=== PATIENT | male | born 1970 | race Caucasian/White ===

== ENCOUNTER 2018-06-23 10:32 | Observation (INO) ==
--- NOTE | 2018-06-23 10:49 | Emergency Department Note ---
ED Disposition Clinical Impression: Precordial chest pain, Syncope and collapse Disposition: Admitted as Observation Condition on Discharge: Good - Critical Care Critical Care Time: No Attestation: On , the high probability of a clinically significant, sudden or life threatening deterioration of the following system(s) required my full and direct attention, intervention and personal management. The time I documented below is in addition to time spent performing reported procedures but includes the following listed in this critical care notation. Medical Decision Making - Sourav Inquiry Pt receiving controlled substance: No Vital Signs: 06/23/18 10:49 06/23/18 11:03 06/23/18 11:30 Temperature 97.7 F Temperature Source Oral Pulse Rate [Right Brachial] 70 76 74 Respiratory Rate 14 12 Blood Pressure [Right Arm] 223/101 H 156/98 H 161/88 H Blood Pressure Mean [Right Arm] 141 117 112 Blood Pressure Source [Right Arm] Automatic Cuff Automatic Cuff Blood Pressure Position [Right Arm] Sitting Sitting 02 Sat by Pulse Oximetry 100 99 97 Oxygen Delivery Method Room Air Room Air 06/23/18 12:30 Temperature Temperature Source Pulse Rate [Right Brachial] 66 Respiratory Rate Blood Pressure [Right Arm] 157/85 H Blood Pressure Mean [Right Arm] 109 Blood Pressure Source [Right Arm] Blood Pressure Position [Right Arm] 02 Sat by Pulse Oximetry 98 Oxygen Delivery Method - Lab Data Lab Results 06/23/18 11:04: WBC 5.9, RBC 5.19, Hgb 16.7, Hct 48.2, MCV 92.8, MCH 32.2 H, MCHC 34.7, RDW 12.3, Plt Count 287, MPV 6.7 L, Neut % (Auto) 58.4, Lymph % (Auto) 34.5, [place] % (Auto) 4.1, Eos % (Auto) 2.0, Baso % (Auto) 1.0, Neut # (Auto) 3.5, Lymph # (Auto) 2.0, [place] # (Auto) 0.2, Eos # (Auto) 0.1, Baso # (Auto) 0.1 06/23/18 11:04: Sodium 140, Potassium 4.1, Chloride 103, Carbon Dioxide 27, Anion Gap 10.5, BUN 10, Creatinine 0.95, Estimated Creat Clear 92, Estimated GFR 85, Est GFR ( Amer) 102, Glucose 102, Calcium 9.1, Total Creatine Kinase 238, CK-MB (CK-2) 2.9, CK-MB (CK-2) Rel Index 1.2, Troponin I < 0.02 06/23/18 11:04: Lipase 145 Result diagrams: 06/23/18 11:04 06/23/18 11:04 Orders (Tests/Meds): ED MEDICATIONS Generic Name Dose Route Start Last Admin Trade Name Freq PRN Reason Stop Dose Admin Sodium Chloride 10 ml 06/23/18 11:08 Saline Flush 10ml Syringe IV 07/23/18 11:07 NEEDED PRN Maintain IV Site - Radiology Data #1 Image(s): Chest Image Reviewed: Yes I reviewed the patient's radiology image Preliminary Findings: Normal/NAD - CT Data CT Scan: Head Time Received: 12:[address] Reviewed: Yes: I have viewed the radiologist's interpretation Findings Narrative: IMPRESSION: Negative noncontrast CT scan of the brain. Dictated By: Chuckie Wright Signed By: <Electronically signed by Chuckie Wright in OV> 06/23/18 1231 - ECG Data Tracing #1 EKG interpreted by Glalo Tyson MD: Rhythm: sinus Rate: 72 [place]: normal Ectopy: none Conduction: Left bundle branch block No prior EKGs available for comparison - Physician Consults Physician Consulted: Orquidea Aguilar Time: 11:53 Reason -: Admission Comment/Response: Agrees to admit the patient to the hospital. We discussed the patient's clinical information, including history, exam, laboratory and radiology results and ED course. Per hospital procedure, I will write temporary bridge inpatient orders on the patient. Specific orders requested by the admitting physician: Serial cardiac enzymes - Reevaluation(s) Time: 11:55 Reevaluation #1: Also complaining of headache now, not present previously - LARISSA Score for Non-Stemi Age of Patient: 40-49 years old Heart Rate: 70-89 bpm Systolic Blood Pressure: 200 mmhg or higher Serum Creatinine: 0.80-1.19 mg/dl CHF [place] Class: I-No CHF Other Risk Factors: None Non-Stemi Risk Score: 41 General Adult HPI - General Stated complaint: high blood pressure,fainted twice this am Time Seen by Provider: 06/23/18 11:00 - History of Present Illness HPI narrative: The patient is deaf. His [id number] is here and she translates through sign language. He has had chest discomfort for 18 hours. A little short of breath. No nausea or vomiting or diaphoresis. He fell 4 times today because he was too weak to stand. His significant other says he did not pass out, but he says he passed out twice. No prior history of heart problems or similar symptoms. He is on no medications except vitamins and is a non-smoker. Family history of heart problems in his father. No previous cardiac evaluations. Currently he says he is not sure whether he has any discomfort in his chest, may be just a little bit. - Related Data Home Medications Medication Instructions Recorded Confirmed No Known Home Medications 06/23/18 06/23/18 Allergies Allergy/AdvReac Type Severity Reaction Status Date / Time No Known Allergies Allergy Verified 06/23/18 10:59 [facility] History - Hepatitis A Screen Attestation statement:: This patient has been screened for Hepatitis A risk factors. I have reviewed the patient's past medical history: Yes ROS Obtained: Yes All systems reviewed & no additional complaints - Constitutional Constitutional: Denies fever(s), Reports weakness - Cardiovascular Cardiovascular: Reports chest pain, Reports fainting - Respiratory Respiratory: No dyspnea - Gastrointestinal Gastrointestingal: Denies: abdominal pain, nausea, vomiting Physical Exam - General General appearance: alert, in no apparent distress - Head Head exam: atraumatic, normocephalic - Eye Eye exam: Present: normal appearance, PERRL, EOMI - ENT ENT exam: Present: normal exam, mucous membranes moist - Neck Neck exam: Present: normal inspection, full ROM - Chest Chest inspection: Present: normal inspection, symmetric chest wall rise - Respiratory Respiratory exam: Present: normal lung sounds bilaterally. Absent: respiratory distress - Cardiovascular Cardiovascular exam: Present: regular rate, normal rhythm, normal heart sounds - Abdominal Exam Abdominal exam: Present: soft. Absent: distention, tenderness, guarding, rebound, rigidity - Extremities Exam Extremities exam: Present: normal inspection, full ROM, other (Radial and pedal pulses 2+) - Neurological Exam Neurological exam: Present: alert, oriented X3 - Psychiatric Psychiatric exam: Present: normal affect, normal mood - Skin Skin exam: Present: warm, dry
[2018-06-23 11:12] LABS: Basophils # 0.1 K/mm3 (0-0.2); Eosinophils # 0.1 K/mm3 (0.0-0.4); Hematocrit 48.2 % (42.0-52.0); Hemoglobin 16.7 g/dL (14.1-18.0); Lymphocytes % 34.5 % (10-50); Mean Corpuscular HGB Conc 34.7 g/dL (31.8-35.4); Mean Corpuscular Hemoglobin 32.2 pg (27.0-31.2); Mean Corpuscular Volume 92.8 fl (80-94); Mean Platelet Volume 6.7 fl (7.4-10.4); Monocytes # 0.2 K/mm3 (0.1-1.0); Monocytes % 4.1 % (1.7-9.3); Neutrophils # 3.5 K/mm3 (1.8-7.8); Neutrophils % 58.4 % (37.0-80.0); Platelet Count 287 K/mm3 (142-424); Red Blood Count 5.19 M/mm3 (4.60-6.20); Red Cell Distribution Width 12.3 % (11.5-17.5); White Blood Count 5.9 K/mm3 (4.8-10.8)
[2018-06-23 11:28] LABS: Anion Gap 10.5 mEq/L (5-15); Blood Urea Nitrogen 10 mg/dL (7-18); Calcium 9.1 mg/dL (8.5-10.1); Carbon Dioxide 27 mmol/L (21.0-32.0); Chloride 103 mmol/L (98-107); Glucose 102 mg/dL (74-106); Potassium 4.1 mmoL/L (3.5-5.1); Sodium 140 mmol/L (136-145)
[2018-06-23 11:41] LABS: Creatine Kinase 238 U/L (39-308)
--- NOTE | 2018-06-23 14:21 | Pharmacy Consult Notes ---
[facility] Pharmacy VTE Monitoring - Patient Demographics Admission date: 06/23/18 Report Date: 06/23/18 Time: 14:21 Allergies/Adverse Reactions: Patient Allergies No Known Allergies Allergy (Verified 06/23/18 10:59) Height: 1.78 m Weight: 68.039 kg Patient Problems: Current Active Problems Precordial chest pain (Acute) Syncope and collapse (Acute) - VTE Risk Labs: VTE Related Lab Results Hgb 16.7 g/dL (14.1-18.0) 06/23/18 11:04 Hct 48.2 % (42.0-52.0) 06/23/18 11:04 Plt Count 287 K/mm3 (142-424) 06/23/18 11:04 BUN 10 mg/dL (7-18) 06/23/18 11:04 Creatinine 0.95 mg/dL (0.70-1.30) 06/23/18 11:04 Estimated Creat Clear 92 mL/min (50-200) 06/23/18 11:04 - Prophylaxis VTE Prophylaxis Ordered?: Yes Types of VTE Prophylaxis: TEDS Knee High Location of Applied Device: Bilateral Lower Extremeties - VTE Diagnosis Confirmed Treatment or plan recommended: Continue Current Treatment
--- NOTE | 2018-06-23 17:12 | History & Physical Report ---
*Admission Date: 06/23/18 *Chief complaint: Chest pain/possible syncope *History of present illness: 48-year-old white male with history of deafness, but otherwise no medical problems who takes no medications, came to the emergency department with a history of being weak and having some chest pain this morning and having an episode of presyncope. His family who interpret for him also note that he has been sick over the past week with some foods bothering him and some difficulty swallowing with some acid reflux type symptoms, excessive burping and belching and some increased abdominal distention. However this morning he had some precordial chest pain that was associated with some nausea and an episode where he apparently lost consciousness for several moments. In the emergency department his workup was negative as recorded, but given his pain, and syncope he was admitted overnight for telemetry monitoring and further evaluation and serial cardiac enzymes. [facility] History I have reviewed the patient's past medical history: Yes Medical History: Denies:: Cancer, Diabetes Mellitus Type 1, Diabetes Mellitus Type 2, Internal Pacemaker, MRSA *Have you ever received a pneumonia vaccine?: No *Have you received a flu vaccine this season?: No Other Medical History: Reports: Anemia, Arthritis Other Surgeries: No: Pacemaker Amputation: No Fractures: No - *Social History Educational Level: Completed High School Smoking Status: Current some day smoker Alcohol Intake: never *Occupational Status:: employed Housing: house Household Members: spouse *Travel in the last 8 weeks: None - Psychiatric History Expresses thoughts of harming self/others: None Suicide Plan Description: No Plan Family Hx:: Heart Attack, Hyperlipidemia Review of Systems - Review of Systems Review of systems:: pertinent systems reviewed and negative unless documented below - *Neurologic Reports fainting, Reports weakness Meds Home Medications Medication Instructions Recorded Confirmed Type No Known Home Medications 06/23/18 06/23/18 History Allergies Allergy/AdvReac Type Severity Reaction Status Date / Time No Known Allergies Allergy Verified 06/23/18 10:59 Exam Vital signs and Labs for Last 24 Hours: Temp Pulse Resp BP Pulse Ox 97.3 F L 71 20 147/89 H 97 06/23/18 16:00 06/23/18 16:00 06/23/18 16:00 06/23/18 16:00 06/23/18 16:00 Laboratory Results - last 24 hr 06/23/18 11:04: WBC 5.9, RBC 5.19, Hgb 16.7, Hct 48.2, MCV 92.8, MCH 32.2 H, MCHC 34.7, RDW 12.3, Plt Count 287, MPV 6.7 L, Neut % (Auto) 58.4, Lymph % (Auto) 34.5, [place] % (Auto) 4.1, Eos % (Auto) 2.0, Baso % (Auto) 1.0, Neut # (Auto) 3.5, Lymph # (Auto) 2.0, [place] # (Auto) 0.2, Eos # (Auto) 0.1, Baso # (Auto) 0.1 06/23/18 11:04: Sodium 140, Potassium 4.1, Chloride 103, Carbon Dioxide 27, Anion Gap 10.5, BUN 10, Creatinine 0.95, Estimated Creat Clear 92, Estimated GFR 85, Est GFR ( Amer) 102, Glucose 102, Calcium 9.1, Total Creatine Kinase 238, CK-MB (CK-2) 2.9, CK-MB (CK-2) Rel Index 1.2, Troponin I < 0.02 06/23/18 11:04: Lipase 145 06/23/18 16:35: Troponin I < 0.02 I & O for Last 24 hours: Intake & Output 06/21/18 06/22/18 06/23/18 06/24/18 11:59 11:59 11:59 11:59 Weight 150 lb 138 lb 3 oz - Constitutional no acute distress, average body habitus - *Routine HEENT Exam Head: Present: normocephalic, atraumatic Eye: Present: EOMI, PERRL - *Routine Neck Exam Present: supple, full ROM. Absent: JVD, carotid bruit - Routine Chest/Breast/Axilla Exam Chest wall: Absent: tenderness, mass - *Routine Respiratory Exam Present: CTA bilaterally. Absent: accessory muscle use, patient mechanically ventilated, prolonged expiratory phase - *Routine Cardiovascular Exam Present: RRR, Normal S1, Normal S2, murmur - *Routine Abdominal Exam Present: soft, normoactive bowel sounds - *Routine Extremities Exam Absent: cyanosis, clubbing, edema - *Routine Skin Exam Present: intact. Absent: cyanosis, erythema - *Routine Neurological Exam Present: alert, oriented X3, vision grossly intact Assessment and Plan (1) Precordial chest pain Current visit: Yes Status: Acute Category: Medical Code(s): R07.2 - Precordial pain So far troponins negative, order again for tomorrow morning. Possible GERD/esophageal spasm as cause of symptoms. Pepcid ordered. (2) Syncope and collapse Current visit: Yes Status: Acute Category: Medical Code(s): R55 - Syncope and collapse Watch telemetry monitoring overnight.
--- NOTE | 2018-06-24 07:31 | Progress Note ---
Internal Medicine - PN: Subj Interval history: Patient is resting with family at bedside, sister in law is membership coordinator as patient uses sign language for communication. He is not currently experiencing chest pain, pressure or shortness of breath. Early this morning he did have an episode of chest pain relieved by antacid. He does report feeling nauseous with eating and reaches satiety quickly. This is somewhat a chronic issue for him. No weight loss, he has actually gained about 20 lbs in the last couple years. Pain that he experienced was not described as stabbing but aching mid chest radiating down into abdomen. He reports not having an actual syncopal episode at home, this was a fall more from weakness than going unconscious. PMH significant for anemia. Home medications include OTC multivitamin. Exam Vital signs and Labs for Last 24 Hours: Temp Pulse Resp BP Pulse Ox 97.3 F L 74 18 137/76 97 06/24/18 04:00 06/24/18 04:00 06/24/18 04:00 06/24/18 04:00 06/24/18 04:00 Laboratory Results - last 24 hr 06/23/18 11:04: WBC 5.9, RBC 5.19, Hgb 16.7, Hct 48.2, MCV 92.8, MCH 32.2 H, MCHC 34.7, RDW 12.3, Plt Count 287, MPV 6.7 L, Neut % (Auto) 58.4, Lymph % (Auto) 34.5, [place] % (Auto) 4.1, Eos % (Auto) 2.0, Baso % (Auto) 1.0, Neut # (Auto) 3.5, Lymph # (Auto) 2.0, [place] # (Auto) 0.2, Eos # (Auto) 0.1, Baso # (Auto) 0.1 06/23/18 11:04: Sodium 140, Potassium 4.1, Chloride 103, Carbon Dioxide 27, Anion Gap 10.5, BUN 10, Creatinine 0.95, Estimated Creat Clear 92, Estimated GFR 85, Est GFR ( Amer) 102, Glucose 102, Calcium 9.1, Total Creatine Kinase 238, CK-MB (CK-2) 2.9, CK-MB (CK-2) Rel Index 1.2, Troponin I < 0.02 06/23/18 11:04: Lipase 145 06/23/18 16:35: Troponin I < 0.02 06/23/18 19:24: Troponin I < 0.02 06/24/18 05:40: Troponin I < 0.02 I & O for Last 24 hours: Intake & Output 06/21/18 06/22/18 06/23/18 06/24/18 23:59 23:59 23:59 23:59 Intake Total 240 / 240 Balance 240 / 240 Weight 138 lb 3 oz - Constitutional no acute distress - *Routine HEENT Exam Head: Present: normocephalic ENT: Present: mucous membranes moist - *Routine Respiratory Exam Present: CTA bilaterally. Absent: accessory muscle use - *Routine Cardiovascular Exam Present: RRR, Normal S1, Normal S2. Absent: murmur, irregular rhythm - *Routine Abdominal Exam Present: soft, normoactive bowel sounds. Absent: tenderness - *Routine Extremities Exam Absent: cyanosis, edema - *Routine Skin Exam Present: intact. Absent: pallor - *Routine Neurological Exam Present: alert, oriented X3 - Routine Psychiatric Exam Present: normal affect Assessment and Plan (1) Precordial chest pain Current visit: Yes Status: Acute Category: Medical Code(s): R07.2 - Precordial pain (2) Syncope and collapse Current visit: Yes Status: Acute Category: Medical Code(s): R55 - Syncope and collapse - Assessment and plan all Dx Assessment and Plan for all problems:: Patient and vital signs have remained stable throughout the night, EKG was without change, serial troponins have been negative, will discharge home on PPI.
--- NOTE | 2018-06-24 07:47 | Discharge Summary ---
General - General Admission date:: 06/23/18 Discharge date: 06/24/18 HPI HPI: 48-year-old white male with history of deafness, but otherwise no medical problems who takes no medications, came to the emergency department with a history of being weak and having some chest pain this morning and having an episode of presyncope. His family who interpret for him also note that he has been sick over the past week with some foods bothering him and some difficulty swallowing with some acid reflux type symptoms, excessive burping and belching and some increased abdominal distention. However this morning he had some precordial chest pain that was associated with some nausea and an episode where he apparently lost consciousness for several moments. In the emergency department his workup was negative as recorded, but given his pain, and syncope he was admitted overnight for telemetry monitoring and further evaluation and serial cardiac enzymes. Hospital Course Hospital Course: Patient was admitted and ordered GI cocktail which did improve pain although seem to make him cough. The following morning he was eating without difficulties. Patient's chest discomfort was felt to be completely unrelated to a cardiac cause and most likely gastroesophageal reflux. He will be started on a PPI and Carafate. Patient will follow-up in the office next Sunday at 3 PM. Objective Vital signs: Temp Pulse Resp BP Pulse Ox 97.3 F L 74 18 137/76 97 06/24/18 04:00 06/24/18 04:00 06/24/18 04:00 06/24/18 04:00 06/24/18 04:00 Results Labs on day of discharge: Labs from last 24 hours 06/24/18 06/23/18 06/23/18 05:40 19:24 16:35 WBC RBC Hgb Hct MCV MCH MCHC RDW Plt Count MPV Neut % (Auto) Lymph % (Auto) [place] % (Auto) Eos % (Auto) Baso % (Auto) Neut # (Auto) Lymph # (Auto) [place] # (Auto) Eos # (Auto) Baso # (Auto) Sodium Potassium Chloride Carbon Dioxide Anion Gap BUN Creatinine Estimated Creat Clear Estimated GFR Est GFR ( Amer) Glucose Calcium Total Creatine Kinase CK-MB (CK-2) CK-MB (CK-2) Rel Index Troponin I < 0.02 < 0.02 < 0.02 Lipase 06/23/18 06/23/18 06/23/18 11:04 11:04 11:04 WBC 5.9 RBC 5.19 Hgb 16.7 Hct 48.2 MCV 92.8 MCH 32.2 H MCHC 34.7 RDW 12.3 Plt Count 287 MPV 6.7 L Neut % (Auto) 58.4 Lymph % (Auto) 34.5 [place] % (Auto) 4.1 Eos % (Auto) 2.0 Baso % (Auto) 1.0 Neut # (Auto) 3.5 Lymph # (Auto) 2.0 [place] # (Auto) 0.2 Eos # (Auto) 0.1 Baso # (Auto) 0.1 Sodium 140 Potassium 4.1 Chloride 103 Carbon Dioxide 27 Anion Gap 10.5 BUN 10 Creatinine 0.95 Estimated Creat Clear 92 Estimated GFR 85 Est GFR ( Amer) 102 Glucose 102 Calcium 9.1 Total Creatine Kinase 238 CK-MB (CK-2) 2.9 CK-MB (CK-2) Rel Index 1.2 Troponin I < 0.02 Lipase 145 DS: Diagnosis - Discharge Diagnosis (1) GERD (gastroesophageal reflux disease) Status: Acute (2) Precordial chest pain Status: Acute (3) Syncope and collapse Status: Acute Discharge Plan - Patient Discharge Instructions Patient Instructions: DI for Syncope in Adults (Fainting), DI for Chest Pain, DI for Syncope in Children (Fainting) - Follow up Plan Follow up with: Aaliyah Quiles APRN [Nurse Practitioner] - 07/01/18 3:00 pm Disposition: Home, Self-Residential Medications: Home Medications Medication Instructions Recorded Confirmed Type No Known Home Medications 06/23/18 06/23/18 History Prescriptions/Medication Reconciliation: No Action No Known Home Medications
== END 2018-06-24 08:25 | disposition home or self-care (01) ==
LOC: ER 10:32 → 2ND 10:32
PROVIDERS: ADMIT Internal Medicine Adolescent Medicine; ATTEND Family Medicine
DX: R03.0 Elevated blood-pressure reading, without diagnosis of hypertension; R55 Syncope and collapse; H91.3 Deaf nonspeaking, not elsewhere classified; R07.2 Precordial pain; K21.9 Gastro-esophageal reflux disease without esophagitis
CPT/HCPCS: 36415; 70450; 71010; 71045; 80048; 82550; 82553; 83690; 84484; 85025; 93005; 99285; G0378

== ENCOUNTER 2024-12-29 23:16 | Inpatient (IN) | payer OTHER, SELFPAY ==
--- OUTSIDE RECORDS SUMMARY | 2024-11-20 14:00 | XMS_ITS | Encounter Summary ---
Author Organization [facility] Address [address] [place] [address] Care Team Providers Care Senior Dot Net Developer Name Role Phone Ophelia Riley MD Primary Care Provider [phone] Celia Avery RN Unavailable Unavailable Reason for Referral * Imaging (Routine) - Pending Review Specialty Diagnoses / Procedures Referred By Contac t Referred To Contact Cardiology Diagnoses LBBB (left bundle branch block) Cardiomyopathy, unspecified type (CMS/HCC) Biventricular ICD (implantable cardioverter-defibrillator) in place Procedures Echo, Adult Transthoracic Complete Merline Pereira PA [address] [place] [address] Phone: tel: fax: Referral ID Status Reason Start Date Expiration Date Visits Requested Visits Authorized [id number] Pending Review Perform Procedure 11/20/2024 05/22/2026 1 1 * Consultation (Routine) - Authorized Specialty Diagnoses / Procedures Referred By Contac t Referred To Contact Diagnoses LBBB (left bundle branch block) Cardiomyopathy, unspecified type (CMS/HCC) Biventricular ICD (implantable cardioverter-defibrillator) in place Merline Pereira PA [address] [place] [address] Phone: tel: fax: Referral ID Status Reason Start Date Expiration Date V isits Requested Visits Authorized [id number] Authorized 11/20/2024 05/22/2026 1 1 Encounter Details Date Type Department Care Team (Late st Contact Info) Description 11/20/2024 2:00 PM EDT Office Visit [facility] Vasyl [address] [place] [address] Janice Benitez MD [address] [place] [address] LBBB (left bundle branch block) (Primary Dx); Cardiomyopathy, unspecified type (CMS/HCC); Biventricular ICD (implantable cardioverter-defibril lator) in place Social History Tobacco Use Types Packs/Day Years Used Date Smoking Tobacco: Never Smokeless Tobacco: Never Alcohol Use Standard Drinks/Week Comments Never 0 (1 standard drink = 0.6 oz pur e alcohol) Humiliation, Afraid, Rape, and Kick questionnair e Answer Date Recorded Within the last year, have y ou been afraid of your partner or ex-partner? No 02/14/2024 Within the last year, have y ou been humiliated or emotionally abused in other ways by your partner or ex-partner? No Within the last year, have y ou been kicked, hit, slapped, or otherwise physically hurt by your partner or ex-partner? No 02/14/2024 Within the last year, have y ou been raped or forced to have any kind of sexual activity by your partner or ex-partner? No 02/14/2024 PHQ-2 Answer Date Recorded Patient Health Questionnaire-2 Score 0 11/20/2024 Hunger Vital Sign Answer Date Recorded Within the past 12 months, y ou worried that your food would run out before you got the money to buy more. Patient declined Within the past 12 months, t he food you bought just didn't last and you didn't have money to get more. Patient declined PRAPARE - Transportation Answer Date Re corded In the past 12 months, has l ack of transportation kept you from medical appointments or from getting medications? No 01/28 In the past 12 months, has l ack of transportation kept you from meetings, work, or from getting things needed for daily living? No 02/14/2024 Housing Stability Vital Sign Answer Omero e Recorded In the last 12 months, was t here a time when you were not able to pay the mortgage or rent on time? No 02/14/2024 Number of Places Lived in the Last Year Not on f ile 02/14/2024 In the last 12 months, was t here a time when you did not have a steady place to sleep or slept in a group home (including now)? No 02/14/2024 PHQ-9 Answer Date Recorded Patient Health Questionnaire-9 Score 0 11/20/2024 AUDIT-C Answer Date Recorded Q1: How often do you have a drink containing alcohol? Never 11/20/2024 Q2: How many drinks containi ng alcohol do you have on a typical day when you are drinking? Patient does not drink Q3: How often do you have si x or more drinks on one occasion? Never 11/20/2024 Utilities Answer Date Recorded In the past 12 months has th e [employer], gas, oil, or water company threatened to shut off services in your home? No 02/14/2024 PHQ-2A Answer Date Recorded Patient Health Questionnaire-2 Score 0 10/20/2022 Sex and Gender Information Value Date Recorded Sex Assigned at Not on file Legal Sex Male 7:46 PM EDT Gender Identity Not on file Sexual Orientation Not on file documented as of this encounter Last Filed Vital Signs Vital Sign Reading Time Taken Comments Blood Pressure 124/81 11/20/2024 1:53 PM EDT Pulse 64 11/20/2024 1:53 PM EDT Temperature - - Respiratory Rate - - Oxygen Saturation 95% 11/20/2024 1:53 PM EDT Inhaled Oxygen Concentration - - Weight 73.6 kg (162 lb 4.1 oz) 11/20/2024 1:53 P M EDT Height 170.2 cm (5' 7 ) 11/20/2024 1:53 PM EDT Body Mass Index 25.41 11/20/2024 1:53 PM EDT documented in this encounter Functional Status * AUDIT-C Score Answer Date of Assessment Author 0 11/20/2024 1:55 PM Samira Fletcher * Question Answer Date of Assessment Author Q1: How often do you have a drink containing alcohol? Never 11/20/2024 1:55 PM Kaia Fletcher Q2: How many drinks containing alcohol do you have on a typical day when you are drinking? Patient does not drink 11/20/2024 1:55 PM Kaia Fletcher Q3: How often do you have six or more drinks on one occasion? Never 11/20/2024 1:55 PM Kaia Fletcher * Over the past 2 weeks, how often have you been bothered by any of the following problems? Question Answer Date of Assessment Author Little interest or pleasure in doing things Not at all 11/20/2024 1:58 PM Kaia Fletcher Feeling down, depressed, or hopeless Not at all 11/20/2024 1:58 PM Kaia Fletcher Patient Health Questionnaire -2 Score 0 11/20/2024 1:58 PM Kaia Fletcher * Question Answer Date of Assessment Author Trouble falling or staying a sleep, or sleeping too much Not at all 11/20/2024 1:58 PM Kaia Fletcher Feeling tired or having elizabeth le energy Not at all 11/20/2024 1:58 PM Kaia Fletcher Poor appetite or overeating Not at all 11/20/2024 1: 58 PM Kaia Fletcher Feeling bad about yourself - or that you are a failure or have let yourself or your family down Not at all 11/20/2024 1:58 PM Kaia Fletcher Trouble concentrating on thi ngs, such as reading the newspaper or watching television Not at all 11/20/2024 1:58 PM Kaia Fletcher Moving or speaking so slowly that other people could have noticed? Or the opposite - being so fidgety or restless that you have been moving around a lot more than usual. Not at all 11/20/2024 1:58 PM Kaia Fletcher Thoughts that you would be b judit off or hurting yourself in some way Not at all 11/20/2024 1:58 PM EDT Kaia Hernandez Patient Health Questionnaire -9 Score 0 11/20/2024 1:58 PM EDT Kaia Hernandez * Calculated C-SSRS Risk Score (Lifetime/Recent) Answer Date of Assessment Author No Risk Indicated 11/20/2024 1:55 PM EDT Kaia Hernandez * If you checked off any problems on this questionnaire so far, Question Answer Date of Assessment Author How difficult have these problems made it for you to do your work, take care of things at home, or get along with other people? Not difficult at all 11/20/2024 1:58 PM EDT Kaia Hernandez * Question Answer Date of Assessment Author 1. Wish to be (Past 1 Month) No 025 1:55 PM EDT Kaia Hernandez 2. Non-Specific Active Suici patel Thoughts (Past 1 Month) No 11/20/2024 1:55 PM EDT Jeanette Hernandez 6. Suicidal Behavior (Lifetime) No 1:55 PM EDT Kaia Hernandez documented as of this encounter Miscellaneous Notes * Progress Notes - Merline Pereira PA - 11/20/2024 2:00 PM EDT Images from the original note were not included. Electrophysiology Follow Up Visit Note Date of Visit 11/20/24 Patient Howard Mitchell [address] [place] [address] PCP Ophelia Riley MD Chief Complaint No chief complaint on file. SUBJECTIVE History of Present Illness Howard Mitchell is a 54 y.o. male who presents today, 11/20/24, in the electrophysiology clinic for follow up. Howard Mitchell has a PMH significant for HFrEF, LBBB, HTN, HLD. History of reduced LVEF and syncopal events (2017 and 2023). Both events occurred when going from sit to standing. External monitor revealed short episodes of NSVT. Echo 09/07/2023 EF 30-35%. EF in 2021 was 40%. Referred to EP clinic. Evaluated on 11/26/2023. Ordered CMR for further evaluation (details below). 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 Janice Benitez. Today 11/20/24 the patient he reports a few times that he has felt vibrations in his arm, even whenhis phone was turned off (so phone wasn't causing the vibration). This occurred few w few days, it happened last month. No issues since. Site has healed well. Denies any CP, dyspnea, palpitations, dizziness, syncope. He is enrolled in remote monitoring. Problem List[1] Current Medications Current Medications[2] Allergies Allergies[3] The following portions of the chart were reviewed this encounter and updated as appropriate: Tobacco Allergies Meds Problems Med Hx Surg Hx Fam Hx Review of Systems 14 Point ROS reviewed and is otherwise negative except as per HPI. I personally reviewed the patient's medical records from PCP, any other specialists, and admissionsthat have occurred in the interim since the patient's last visit. OBJECTIVE Vitals Visit Vitals BP 124/81 (BP Location: Left arm, Patient Position: Sitting, BP Cuff Size: Adult) Pulse 64 Ht 1.702 m (5' 7 ) Wt 73.6 kg (162 lb 4.1 oz) SpO2 95% BMI 25.41 kg/m?? Physical Exam Physical Exam Vitals and nursing note reviewed. Constitutional: General: He is not in acute distress. Appearance: Normal appearance. He is not ill-appearing. HENT: Head: Normocephalic and atraumatic. Eyes: General: No scleral icterus. Conjunctiva/sclera: Conjunctivae normal. Cardiovascular: Rate and Rhythm: Normal rate and regular rhythm. Pulses: Normal pulses. Heart sounds: Normal heart sounds. No murmur heard. No friction rub. No gallop. Pulmonary: Effort: Pulmonary effort is normal. Breath sounds: Normal breath sounds. No wheezing, rhonchi or rales. Abdominal: General: There is no distension. Musculoskeletal: General: No swelling. Normal range of motion. Skin: General: Skin is warm and dry. Findings: No rash. Neurological: General: No focal deficit present. Mental Status: He is alert and oriented to person, place, and time. Psychiatric: Mood and Affect: Mood normal. Behavior: Behavior normal. Thought Content: Thought content normal. Diagnostics No echocardiogram results found for the past 12 months Lab Review Lab Results Component Value Date/Time WBC 7.87 06/24/2024 1046 RBC 4.51 (L) 06/24/2024 1046 HGB 14.7 06/24/2024 1046 HCT 41.9 06/24/2024 1046 Lab Results Component Value Date/Time BUN 11 06/24/2024 1046 NA 141 06/24/2024 1046 K 4.2 06/24/2024 1046 CL 105 06/24/2024 1046 Lab Results Component Value Date/Time AST 23 02/22/2024 1305 ALT 28 02/22/2024 1305 ALKPHOS 75 02/22/2024 1305 Lab Results Component Value Date/Time CHOL 184 02/22/2024 1305 HDL 51 02/22/2024 1305 Lab Results Component Value Date/Time HGBA1C 5.4 02/22/2024 1305 Lab Results Component Value Date/Time TSH 1.42 07/07/2022 1559 Device Interrogation Overview Information Systems Coordinator: Jolicloud Device type: multilead chamber ICD Device mode: DDD Lower rate: 60 Upper rate: 130 Battery: 9.1 years RA % pacin % Pacin.750 Volts @ 0.4 ms Sensin.5 mV Impedance: 532 Ohms RV % pacin % Pacin.625 Volts @ 0.4 ms Sensin.8 mV Impedance: 380 Ohms Shock impedance: 59 Ohms Charge time: sec LV % pacin % Pacin.875 Volts @ 0.4 ms Sensing: mV Impedance: 646 Ohms Tachy Rx VT1: 188 VT2: VF: 222 Episodes 0 Changes: No Notes I personally interpreted ASSESSMENT AND PLAN Visit Diagnoses and Orders 1. LBBB (left bundle branch block) Follow Up Cardiology, Echo, Adult Transthoracic Complete 2. Cardiomyopathy, unspecified type (CMS/HCC) Follow Up Cardiology, Echo, Adult Transthoracic Complete, sacubitril-valsartan (Entresto) 24-26 MG tablet 3. Biventricular ICD (implantable cardioverter-defibrillator) in place Follow Up Cardiology, Echo, Adult Transthoracic Complete Discussion Summary Will get repeat echo to assess LV function following CLASS B TRUCK DRIVER. Acceptable device interrogaiton, see above Potential that the vibration pt feels is stim- cannot do vector testing today but note to consdier this at follow up Refill for entresto sent Follow up in 4 months A total time of 40 minutes was spent by addressing the current illness, reviewing records (prior imaging, lab work, etc), and formulating a plan. The patient is agreeable to the plan and all pertinent questions were answered. Merline Pereira PA-C Electrophysiology [1] Patient Active Problem List Diagnosis Allergic rhinitis Cardiomyopathy Deaf mutism, congenital GERD without esophagitis Mixed hyperlipidemia Neck pain, musculoskeletal Tremor of left hand Neurological deficit, transient Cardiac left ventricular ejection fraction 30-35 percent LBBB (left bundle branch block) Biventricular ICD (implantable cardioverter-defibrillator) in place [2] Current Outpatient Medications: atorvastatin (Lipitor) 10 MG tablet, Take 1 tablet (10 mg) by mouth every night., Disp: 90 tablet, Rfl: 1 cetirizine (ZyrTEC) 10 MG tablet, Take 1 tablet (10 mg) by mouth 1 (one) time each day., Disp: 90 tablet, Rfl: 3 cyclobenzaprine (Flexeril) 10 MG tablet, Take 1 tablet (10 mg) by mouth at night if needed for muscle spasms., Disp: 30 tablet, Rfl: 11 lansoprazole (Prevacid) [address] capsule, Take 1 capsule (30 mg) by mouth 1 (one) time each day before breakfast. Do not crush or chew., Disp: 90 capsule, Rfl: 2 metoprolol succinate XL (Toprol-XL) 25 MG 24 hr tablet, Take 1 tablet (25 mg) by mouth daily., Disp: , Rfl: sacubitril-valsartan (Entresto) 24-26 MG tablet, Take 1 tablet by mouth 2 times a day. Patient may take 1/2 pill twice a day at first, Disp: 60 tablet, Rfl: 11 chlorhexidine (Hibiclens) 4 % external solution, Apply to entire chest area with damp cloth after showering 5 days prior to procedure. Allow to air dry. Do not wash off until the next days shower. (Patient not taking: Reported on 11/20/2024), Disp: 236 mL, Rfl: 0 [3] No Known Allergies documented in this encounter Plan of Treatment Upcoming Encounters Date Type Department Care Team (Late st Contact Info) Description 04/06/2025 2:30 PM EST Appointment Cardiac Imaging [address] [place] [address] 04/06/2025 4:00 PM EST Office Visit [facility] Vasyl [address] [place] [address] Janice Benitez MD [address] [place] [address] Scheduled Orders Name Type Priority Associated Diagnoses Orde r Schedule Echo, Adult Transthoracic Complete Echocardiography Routine LBBB (left bundle branch block) Cardiomyopathy, unspecified type (CMS/HCC) Biventricular ICD (implantable cardioverter-defibri llator) in place Expected: 11/20/2024 (Approximate), Expires: 11/20/2026 Scheduled Referrals Name Type Priority Associated Diagnoses Order Schedule Follow Up Cardiology Outpatient Referral Routine LBBB (left bundle branch block) Cardiomyopathy, unspecified type (CMS/HCC) Biventricular ICD (implantable cardioverter-defibr illator) in place 1 Occurrences starting 11/20/2024 until 05/23/2026 documented as of this encounter Visit Diagnoses Diagnosis LBBB (left bundle branch block)- Primary Other left bundle branch block Cardiomyopathy, unspecified type (CMS/HCC) Biventricular ICD (implantable cardioverter-defibrillator) in place documented in this encounter Additional Health Concerns Assessment Noted Time PHQ-9 Depression Total Score: 0 11/21/19 25 1:58 PM EDT A fall risk assessment has been complete d for the patient 11/20/2024 1:58 PM EDT A Body Mass Index follow-up plan has been documented for the patient 11/20/2024 2:58 PM EDT documented as of this encounter Care Teams Senior Dot Net Developer Relationship Specialty Start Date End Date Ophelia Riley MD [address] [place] [address] PCP - General Family Medicine 11/24/21 Celia Avery RN [facility] - 6 [facility] Registered Nurse Cardiology 10/10/23 documented as of this encounter
--- OUTSIDE RECORDS SUMMARY | 2024-12-22 08:25 | XMS_ITS | Encounter Summary ---
Author Organization Healthcare Address [address] [place] [address] Care Team Providers Care Traffic Maintenance Supervisor Name Role Phone Ophelia Riley MD Primary Care Provider [phone] Celia Avery RN Unavailable Unavailable Encounter Details Date Type Department Care Team (Latest Contact Info) Description 12/22/2024 8:25 AM EDT - 12/22/2024 11:59 PM EDT Hospital Encounter Cardiac Imaging [address] [place] [address] ICD (implantable cardioverter-defibr illator) in place Discharge Disposition: Home or Self Care Social History Tobacco Use Types Packs/Day Years [...] place to sleep or slept in a long-term (including now)? No 02/14/2024 PHQ-9 Answer Date [...] the past 12 months has th e [employer], [employer], oil, or water [employer] threatened to shut off services in your home? No 02/14/2024 PHQ-2A Answer Date Recorded Patient Health Questionnaire-2 Score 0 10/20/2022 Sex and Gender Information Value Date Recorded Sex Assigned at Not on file Legal Sex Male 7:46 PM EDT Gender Identity Not on file Sexual Orientation Not on file documented as of this encounter Medications at Time of Discharge atorvastatin (Lipitor) 10 MG tabletIndications:Mi xed hyperlipidemia Take 1 tablet (10 mg) by mouth every night. 90 tablet 1 02/15/2024 cetirizine (ZyrTEC) 10 MG tabletIndications:Se asonal allergic rhinitis, unspecified trigger Take 1 tablet (10 mg) by mouth 1 (one) time each day. 90 tablet 3 02/15/2024 chlorhexidine (Hibiclens) 4 % external solution Apply to entire chest area with damp cloth after showering 5 days prior to procedure. Allow to air dry. Do not wash off until the next days shower. 236 mL 05/09/2024 cyclobenzaprine (Flexeril) 10 MG tabletIndications:Ne ck pain, musculoskeletal Take 1 tablet (10 mg) by mouth at night if needed for muscle spasms. 30 tablet 11 02/15/2024 lansoprazole (Prevacid) [address] capsule Take 1 capsule (30 mg) by mouth 1 (one) time each day before breakfast. Do not crush or chew. 90 capsule 2 05/23/2024 metoprolol succinate XL (Toprol-XL) 25 MG 24 hr tablet Take 1 tablet (25 mg) by mouth daily. 10/05/2023 sacubitril-valsartan (Entresto) 24-26 MG tabletIndications:Ca rdiomyopathy, unspecified type (CMS/HCC) Take 1 tablet by mouth 2 times a day. Patient may take 1/2 pill twice a day at first 60 tablet 11 11/20/2024 documented as of this encounter Plan of Treatment Upcoming Encounters Date Type Department Care Team (Late st Contact Info) Description 04/06/2025 2:30 PM EST Appointment Cardiac Imaging [address] [place] [phone] 04/06/2025 4:00 PM EST Office Visit [facility] [address] [facility] [place] [address] Janice Benitez MD [address] [place] [phone] documented as of this encounter Procedures Procedure Name Priority Date/Time Associated Diagnosis Comments CARDIAC DEVICE CHECK - REMOTE - ICD Routine 12/22/2024 8:43 AM EDT ICD (implantable cardioverter-defibr illator) in place documented in this encounter Results * CARDIAC DEVICE CHECK - REMOTE - ICD (12/22/2024 8:43 AM EDT) Anatomical Region Laterality Modality Other Narrative 12/22/2024 9:41 AM EDT Biventricular Implantable cardiac defibrillator (ICD) remote interrogation. Device successfully sensing intrinsic cardiac events and marking appropriately. Available impedance values demonstrate stable trend within normal limits. Available lead capture thresholds measured without significant change. Adequate safety margin programmed in device permanent outputs. Battery discharge trend stable, appropriate given total time in service. BIV pacing percentage >= 92%. EGMs reviewed against implant indication and diagnosis. Presenting rhythm is atrial sensed and paced with biventricular paced response. Otherwise unremarkable. No new events since last clinic/remote report evaluation. Neva Sotomayor Sherron [facility] CV IMPLANTABLE CARDIAC DEV ICE PROCEDURES Final Result documented in this encounter Visit Diagnoses Diagnosis ICD (implantable cardioverter-defibrillator) in place documented in this encounter Additional Health Concerns Assessment Noted Time PHQ-9 Depression Total Score: 0 11/21/19 1:58 PM EDT A fall risk assessment has been complete d for the patient 11/20/2024 1:58 PM EDT A Body Mass Index follow-up plan has been documented for the patient 11/20/2024 2:58 PM EDT documented as of this encounter Care Teams Traffic Maintenance Supervisor Relationship Specialty Start Date End Date Ophelia Riley MD [address] [place] [address] PCP - General Family Medicine 11/24/21 Celia Avery, RN [facility] - 6 [facility] Registered Nurse Cardiology 10/10/23 documented as of this encounter
--- NOTE | 2024-12-29 23:27 | XR_ITS ---
PROCEDURE INFORMATION: Exam: XR Chest Exam date and time: 12/29/2024 11:36 PM Age: 54 years old Clinical indication: Pain; Chest pressure; Additional info: Chest pain TECHNIQUE: Imaging protocol: Radiologic exam of the chest. Views: 1 view. Total images: 1 COMPARISON: CR [id number] XR chest portable 06/23/2018 11:32 AM FINDINGS: Tubes, catheters and devices: Left subclavian cardiac pacemaker. EKG leads are present. Lungs: Fine linear left basilar atelectasis or scar. No consolidation. No pulmonary vascular congestion or edema. Pleural spaces: Unremarkable. No pleural effusion. No pneumothorax. Heart/Mediastinum: Unremarkable. No cardiomegaly. No mediastinal widening or hilar enlargement. Bones/joints: Unremarkable. IMPRESSION: No radiographically acute cardiopulmonary process.
--- OUTSIDE RECORDS SUMMARY | 2024-12-29 23:27 | XMS_ITS | Clinical Summary ---
Author Organization [facility] yste Address [address] [place] [address] Care Team Providers Care Instructional Consultant Name Role Phone Ophelia Riley MD Primary Care Provider [phone] Social History Tobacco Use Types Packs/Day Years Used Date Smoking Tobacco: Never Assessed Abuse Screen Answer Date Recorded Unsafe at Home or Work/School Not on file Feels Threatened by Someone? Not on file Does Anyone Keep You from Co ntacting Others or Doint Things Outside the Home? Not on file 02/09/2023 Physical Sign of Abuse Present Not on file 1 Housing Stability Answer Date Recorded Current Living Arrangements Not on file 01/28 Potentially Unsafe Housing Conditions Not on gina e 02/09/2023 Family and Community Support Answer Omero e Recorded Help with Day-to-Day Activities Not on file 02/09/2023 Lonely or Isolated Not on file 02/09/2023 Employment Answer Date Recorded Do you want help finding or keeping work or a gio b? Not on file 02/09/2023 Disabilities Answer Date Recorded Concentrating, Remembering, or Making Decisions Difficulty Not on file 02/09/2023 Doing Errands Independently Difficulty Not on fi le 02/09/2023 Education Answer Date Recorded Help with school or training? Not on file Preferred Language Not on file 02/09/2023 Sex and Gender Information Value Date Recorded Sex Assigned at Not on file Legal Sex Male 1:58 PM EDT Gender Identity Not on file Sexual Orientation Not on file Plan of Treatment Health Maintenance Due Date Last Done Comments ANNUAL PHYSICAL 1970 HEPATITIS C SCREENING 1970 TDAP/TD VACCINES (1 - Tdap) 1989 COLOGUARD 2015 COLON CANCER SCREENING 5 YEA R SIGMOIDOSCOPY 2015 COLONOSCOPY [address] CANCER SCREENING 2015 CT COLONOGRAPHY 2015 FECAL OCCULT BLOOD TEST 2015 FIT Testing (1 year) 2015 Pneumococcal Vaccine 50+ (1 of 1 - PCV) 02/13/2020 ZOSTER VACCINE (2 of 2) 03/10/2022 01/13/2022 COVID-19 Vaccine (4 - season) 2023 09/03/2021, 12/21/2020, 11/30/2020 INFLUENZA VACCINE 01/28/2025 06/27/2019 Insurance [employer] Care Teams Instructional Consultant Relationship Specialty Start Date End Date Ophelia Riley MD [address] [place] [address] PCP - General Family Medicine 01/20/22
[2024-12-29 23:31] VITALS: BP 136/83; PULSE 80; RESP 23; O2SAT 99
[2024-12-29] MEDS: ASPIRIN 81MG CHEWABLE TABLET 324 MG PO (23:33)
[2024-12-29 23:34] VITALS: BP 155/94; PULSE 80; RESP 19; O2SAT 100
[2024-12-29 23:36] LABS: Hematocrit 42.6 % (42.0-52.0); Hemoglobin 14.9 g/dL (14.1-18.0); Immature Granulocytes % 0.2 %; Mean Corpuscular HGB Conc 35.0 g/dL (31.8-35.4); Mean Corpuscular Hemoglobin 32.0 pg (27.0-31.2); Mean Corpuscular Volume 91.4 fl (80-94); Nucleated Red Blood Cells % 0 %; Platelet Count 286 K/mm3 (142-424); Red Blood Count 4.66 M/mm3 (4.60-6.20); Red Cell Distribution Width-SD 39.7 fL; White Blood Count 11.0 K/mm3 (4.8-10.8)
[2024-12-29 23:39] LABS: Albumin Level 4.9 g/dl (3.5-5.0); Chloride 105 mmol/L (98-107)
[2024-12-29 23:40] LABS: Potassium 3.3 mmoL/L (3.5-5.1); Sodium 138 mmol/L (136-145)
[2024-12-29] MEDS: NITROGLYCERIN 0.4MG SL TABLET 0.4 MG SL (23:40)
--- NOTE | 2024-12-29 23:40 | ED_ITS ---
Discharge Plan Disposition Patient Disposition: Admitted Condition: Fair Prescriptions Prescriptions: No Action No Known Home Medications Referrals Follow up/Referrals: Provider,Referral, [Primary Care Provider, Medical] - See instructions Clinical Impressions Clinical Impression: Chest pain Print Language Print Language: Comoran Discharge ED Provider: Sammy Rodriguez General Adult HPI General Chief complaint: Chest Pain Stated complaint: Chest Pain Time Seen by Provider: 12/29/24 23:26 History of Present Illness HPI narrative: 54-year-old male who is deaf and has a pacemaker as well as a history of GERD presents to the ER with 1 hour of crushing chest pain. Reportedly patient developed crushing chest pain that does not radiate. He denies nausea or vomiting as well as dizziness. Slight pain radiating to the left arm. Patient has a history of pacemaker but no reported history of heart attack. He did not take any medications for his symptoms prior to arrival. No previous episodes like this in the past. Denies any numbness, tingling, weakness, or difficulty breathing. No recent illness. Patient reports pain rated 8/10 with no radiation. Nothing specific seems to make it better or worse. calculation reviewer used for this encounter. Related Data Home Medications ?Medication ?Instructions ?Recorded ?Confirmed No Known Home Medications 06/23/1806/01 Allergies Allergy/AdvReac Type Severity Reaction Status Date / Time No Known Allergies Allergy Verified 06/23/18 10:59 [facility] Disclaimer: The information contained in this section may have been updated after the patient was seen, as this information can be updated by other users. Social History Smoking Status: Never smoker second hand exposure: No alcohol intake: never current occupational status: employed Travel in the last 8 weeks?: None household members: spouse housing: house caffeine: Yes Have you lived/traveled outside US in past 30 days?: No Contact w/someone who lives/traveled outside US past 30 days?: No Exposure to someone with infectious disease in past 14 days?: No Do you have a fever (greater than 100.4 F or 38 C)?: No Have you tested positive for COVID-19?: No Exposed to someone with COVID-19 in past 14 days?: No Do you have a sore throat?: No Do you have a cough?: No Do you have any weakness?: No Do you have any diarrhea?: No Are you experiencing any unusual bleeding?: No Do you have any muscle aches/pain?: No Do you have any abdominal pain?: No Are you experiencing loss of taste or smell?: No Other Medical History Have you received the Flu Vaccine for this season: No Have you received the Pneumonia Vaccine: No ROS Obtained: Yes Systems reviewed as appropriate & no additional complaints except as documented per HPI Physical Exam General General appearance: alert Comment: Appears uncomfortable and scared but nontoxic, patient is not pale or diaphoretic Head Head exam: atraumatic and normocephalic Eye Eye exam: Present PERRL and EOMI ENT ENT exam: Present mucous membranes moist Neck Neck exam: Present normal inspection and full ROM Chest Chest inspection: Present symmetric chest wall rise; Absent tenderness Respiratory Respiratory exam: Present normal lung sounds bilaterally and other (100% on room air); Absent respiratory distress, wheezes or stridor Cardiovascular Cardiovascular exam: Present regular rate, normal rhythm and other (Pacemaker spikes present on the monitor, pacer present in the left upper chest) Abdominal Exam Abdominal exam: Present soft; Absent distention or tenderness Extremities Exam Extremities exam: Present full ROM; Absent edema Neurological Exam Neurological exam: Present alert and oriented X3; Absent motor sensory deficit Psychiatric Psychiatric exam: Present normal affect and normal mood Skin Skin exam: Present warm and dry Medical Decision Making Medical Records Medical records reviewed: Yes I reviewed the patient's medical records. Screening: Per USPSTF and CDC recommendations, given the prevalence of disease in our region, it is our hospital?s policy to screen for HIV and viral Hepatitis for all patients aged 18 and over and those with ongoing risk factors. Sourav Inquiry Pt receiving controlled substance: No Vital Signs: 12/29/24 23:31 12/29/24 23:34 12/29/24 23:34 Temperature Temperature Source Pulse Rate 80 80 Pulse Rate [Left] Respiratory Rate 23 19 Blood Pressure 136/83 155/94 H Blood Pressure [Right Arm] Blood Pressure Mean 114 Blood Pressure Mean [Right Arm] Blood Pressure Source [Right Arm] Blood Pressure Position [Right Arm] 02 Sat by Pulse Oximetry 99 100 Oxygen Delivery Method Room Air 12/29/24 23:45 12/29/24 23:46 12/29/24 23:54 Temperature 98.3 F Temperature Source Oral Pulse Rate 79 72 Pulse Rate [Left] 80 Respiratory Rate 14 18 15 Blood Pressure Blood Pressure [Right Arm] 154/86 H Blood Pressure Mean Blood Pressure Mean [Right Arm] 108 Blood Pressure Source [Right Arm] Automatic Cuff Blood Pressure Position [Right Arm] Sitting 02 Sat by Pulse Oximetry 96 100 97 Oxygen Delivery Method Room Air 12/29/24 23:54 12/30/24 00:00 12/30/24 00:00 Temperature Temperature Source Pulse Rate 89 Pulse Rate [Left] Respiratory Rate 17 Blood Pressure 123/81 113/74 Blood Pressure [Right Arm] Blood Pressure Mean 98 90 Blood Pressure Mean [Right Arm] Blood Pressure Source [Right Arm] Blood Pressure Position [Right Arm] 02 Sat by Pulse Oximetry 94 L Oxygen Delivery Method 12/30/24 00:15 12/30/24 00:30 12/30/24 00:30 Temperature Temperature Source Pulse Rate 70 68 Pulse Rate [Left] Respiratory Rate 16 30 H Blood Pressure 100/73 L Blood Pressure [Right Arm] Blood Pressure Mean 82 Blood Pressure Mean [Right Arm] Blood Pressure Source [Right Arm] Blood Pressure Position [Right Arm] 02 Sat by Pulse Oximetry 96 97 Oxygen Delivery Method Lab Data Lab Results 12/29/24 23:19: WBC 11.0 H, RBC 4.66, Hgb 14.9, Hct 42.6, MCV 91.4, MCH 32.0 H, MCHC 35.0, RDW 11.9, Plt Count 286, MPV 9.2, Neut % (Auto) 37.9, Lymph % (Auto) 48.8, [place] % (Auto) 8.8, Eos % (Auto) 3.0, Baso % (Auto) 1.3, Neut # (Auto) 4.2, Lymph # (Auto) 5.4 H, [place] # (Auto) 1.0, Eos # (Auto) 0.3, Baso # (Auto) 0.1, Total Counted 100, Neutrophils % (Manual) 30 L, Lymphocytes % (Manual) 51 H, M onocytes % (Manual) 13 H, Eosinophils % (Manual) 3, Basophils % (Manual) 3.0 H, Platelet Estimate Normal, RBC Morphology Normal, PT 10.9, INR 0.98, D-Dimer 0.90 H, Sodium 138, Potassium 3.3 L, Chloride 105, Carbon Dioxide 23, Anion Gap 13.3, BUN 14, Creatinine 0.90, Estimated GFR 88, Est GFR ( Amer) 106, Glucose 108 H, Calcium 9.6, Total Bilirubin 0.9, AST 44, ALT 41, Alkaline Phosphatase 68, Troponin I < 0.01, NT-Pro-B Natriuret Pep 23.7, Total Protein 8.0, Albumin 4.9, Globulin 3.1, Albumin/Globulin Ratio 1.6 12/29/24 23:19 12/29/24 23:19 Orders (Tests/Meds): ED MEDICATIONS Generic Name Dose Route Start Last Admin Trade Name Freq PRN Reason Stop Dose Admin Nitroglycerin 0.4 mg 12/29/24 23:27 12/30/24 00:01 Nitroglycerin 0.4mg Sl Tablet SL 12/30/24 23:27 0.4 mg [id number] PRN Administration Chest Pain Discontinued Medications Generic Name Dose Route Start Last Admin Trade Name Freq PRN Reason Stop Dose Admin Aspirin 324 mg 12/29/24 23:27 12/29/24 23:33 Aspirin 81mg Chewable Tablet PO 12/29/24 23:28 324 mg ONCE ONE Administration Morphine Sulfate 4 mg 12/29/24 23:27 12/29/24 23:53 Morphine 4mg/Ml Syringe IV 12/29/24 23:28 4 mg ONCE ONE Administration Ondansetron HCl 4 mg 12/29/24 23:28 12/29/24 23:53 Ondansetron 4mg/2ml Vial IV 12/29/24 23:29 4 mg ONCE ONE Administration ORDERS Category Date Time Status XR chest portable Stat Exams 12/29/24 23:27 Completed Complete Blood Count Auto Diff Stat Lab 12/29/24 23:19 Completed Comprehensive Metabolic Panel Stat Lab 12/29/24 23:19 Completed D-Dimer Stat Lab 12/29/24 23:19 Completed HIV Combo Stat Lab 12/29/24 23:19 Received Hepatitis C Ab Qual. W/ RFX Stat Lab 12/29/24 23:19 Received NT Pro Brain Natriuretic Pep. Stat Lab 12/29/24 23:19 Completed Prothrombin Time INR Stat Lab 12/29/24 23:19 Completed Troponin I Q3H Lab 12/30/24 02:30 Ordered Troponin I Q3H Lab 12/30/24 05:30 Ordered Troponin I Stat Lab 12/29/24 23:27 Completed Medical Decision Narrative: In summary, this 54-year-old male with comorbidities described in the HPI presents to the emergency department today with chest pain. On initial evaluation patient is hemodynamically stable, afebrile, appears worried but not in acute distress, pain is not able to be exacerbated with exam, cardiopulmonary exam is benign, remainder of exam benign. Differential diagnosis includes but is not limited to ACS, PE, considered dissection but believe this is unlikely with patient being hemodynamically stable and having no radiation of pain, also considered esophageal spasm given patient's history of GERD as well as possibly pneumothorax among other intrathoracic pathology. Based on these concerns, I ordered cardiac workup, hematologic and serum labs, chest x-ray. ECG personally interpreted demonstrates paced rhythm, rate 77, normal LA and QTc, no STEMI. Patient received aspirin and nitro initially for treatment. He had improvement of symptoms with 1 nitro so additional nitro was administered as well as morphine and Zofran Labs personally reviewed demonstrate mild leukocytosis WBC 11.0, no anemia, normal platelets, PT/INR nonactionable, D-dimer 0.9, per years criteria PE is excluded. CMP nonactionable, initial troponin undetectably low less than 0.01. I discussed this case with Dr. Ruffin including reviewing the patient's ECG with him. He does not appreciate any ischemic changes and recommends admission to the hospital for continued workup and management. I appreciate his recommendations. XR personally interpreted demonstrates no acute intrathoracic abnormality. See radiology read for final interpretation. On reassessment patient has had improvement of symptoms and is resting more comfortably. Patient is agreeable to the plan for admission for additional cardiac workup. Discussed this case with the hospitalist who graciously accepted the patient for admission. Patient admitted in stable condition. Critical Care Critical Care Time Critical Care Time: No
[2024-12-29 23:42] LABS: Alanine Aminotransferase 41 U/L (12-78); Anion Gap 13.3 mEq/L (5-15); Aspartate Amino Transferase 44 U/L (17-59); Blood Urea Nitrogen 14 mg/dl (9-20); Carbon Dioxide 23 mmol/L (22.0-30.0); Creatinine,Serum 0.90 mg/dl (0.66-1.25); Estimated Glomerular Filt Rate 88 ml/min (>60); GFR (African American) 106 ML/MIN (>60)
[2024-12-29 23:43] LABS: Albumin/Globulin Ratio 1.6 (1.1-1.8); Alkaline Phosphatase 68 U/L (38-126); Bilirubin,Total 0.9 mg/dl (0.2-1.3); Calcium 9.6 mg/dl (8.4-10.2); Globulin 3.1 g/dL (1.3-3.2); Glucose 108 mg/dl (74-100); INR 0.98 (0.9-1.1); Prothrombin Time 10.9 seconds (10.1-12.5); Total Protein,Serum 8.0 g/dl (6.3-8.2)
[2024-12-29 23:45] VITALS: PULSE 79; RESP 14; O2SAT 96
[2024-12-29 23:46] VITALS: BP 154/86; PULSE 80; RESP 18; TEMP 36.8; O2SAT 100; BMI 25.0
[2024-12-29 23:52] LABS: NT Pro Brain Natriuretic Pep. 23.7 pg/mL (0-125)
[2024-12-29] MEDS: MORPHINE 4MG/ML SYRINGE 4 MG IV (23:53)
[2024-12-29] MEDS: ONDANSETRON 4MG/2ML VIAL 4 MG IV (23:53)
[2024-12-29 23:54] VITALS: BP 123/81; PULSE 72; RESP 15; O2SAT 97
[2024-12-29 23:59] LABS: Total Cells Counted 100
[2024-12-30] VITALS (30 sets, daily range): BP systolic 89–130; BP diastolic 49–79; PULSE 56–89; RESP 14–30; TEMP 36.4–36.8; O2SAT 92–99; BMI 25.6; BMI 31.5
[2024-12-30] LABS: RBC Morphology Normal; Troponin I < 0.01 ng/ml (0.00-0.034)
--- NOTE | 2024-12-30 | ECG_ITS ---
APPROVED REPORT Exam: Resting ECG HR:77 bpm ECG Measurements Heart Rate 77 AXES TX 128 P 72 QRSd 119 QRS 79 QT 388 T -56 QTc 420 Conclusion ELECTRONIC VENTRICULAR PACEMAKER ABNORMAL RHYTHM ECG No STEMI Electronically signed by : LEANDER INMAN, 12/30/2024 04:00:53
[2024-12-30] MEDS: NITROGLYCERIN 0.4MG SL TABLET 0.4 MG SL (00:01)
[2024-12-30 00:04] LABS: D-Dimer 0.90 ug/mL (0.0-0.5)
[2024-12-30 00:49] LABS: Hepatitis C Ab Qual. W/ RFX NEGATIVE (Negative)
--- NOTE | 2024-12-30 00:55 | EXP.HP ---
History of Present Illness *Admission Date: 12/30/24 *Reason for visit:: Chest pain *History of present illness: Howard Mitchell is a 54-year-old male with medical history significant for complete hearing loss, HFrEF 30% with AICD, hypertension, hyperlipidemia, GERD sudden onset chest pain around 10:30 PM last night. He states it was predominantly in the lower sternal area, describing it as very tight and squeezing pain with radiation down left arm. He states he has had chest pain like this before but never this severe. He reports he follows with Dr. Gallo Nieto in [place] for his HFrEF 30%, but states he has never had any coronary stenting and is a non-smoker. On arrival, vital signs were stable but patient continued to have chest pain. He was given nitro x 2, morphine with eventual relief of chest pain. He was also given aspirin 324 mg. Workup in the ED significant for initial normal troponin and EKG with nonspecific ST changes but without STEMI. CXR, CTA chest unremarkable. Dr. Ruffin was consulted by the ED provider who recommended admission for workup and monitoring. Given these findings, ED provider discussed case with me and I decided to admit patient for further evaluation of chest pain. On my evaluation, patient was resting in bed comfortably without acute distress. Second troponin resulted to 1.13. Heparin drip was started. [facility] Disclaimer: The information contained in this section may have been updated after the patient was seen, as this information can be updated by other users. Medical History (Updated 12/30/24 @ 06:38 by Jayme Ashford MD) Pacemaker Social History (Updated 12/30/24 @ 02:33 by Jannie Lyles RN) Smoking Status: Never smoker second hand exposure: No alcohol intake: never current occupational status: employed Travel in the last 8 weeks?: None household members: spouse housing: house caffeine: Yes Have you lived/traveled outside US in past 30 days?: No Contact w/someone who lives/traveled outside US past 30 days?: No Exposure to someone with infectious disease in past 14 days?: No Do you have a fever (greater than 100.4 F or 38 C)?: No Have you tested positive for COVID-19?: No Exposed to someone with COVID-19 in past 14 days?: No Do you have a sore throat?: No Do you have a cough?: No Do you have any weakness?: No Are you experiencing any nausea/vomitting?: No Do you have any diarrhea?: No Are you experiencing any unusual bleeding?: No Do you have any muscle aches/pain?: No Do you have any abdominal pain?: No Are you experiencing loss of taste or smell?: No Other Medical History Have you received the Flu Vaccine for this season: No Have you received the Pneumonia Vaccine: No Meds Home Medications and Allergies Home Medications ?Medication ?Instructions ?Recorded ?Confirmed ?Type atorvastatin 10 mg tablet 10 mg PO DAILY 12/30/24 12/30/24 History cetirizine 10 mg tablet 10 mg PO DAILY 12/30/24 12/30/24 History lansoprazole 30 mg capsule,delayed 30 mg PO DAILY 12/30/24 12/30/24 History release lisinopril 5 mg tablet 5 mg PO DAILY 12/30/24 12/30/24 History metoprolol succinate 25 mg 25 mg PO DAILY 12/30/24 12/30/24 History tablet,extended release 24 hr New Prescriptions to Start Prescriptions: Allergies Allergy/AdvReac Type Severity Reaction Status Date / Time No Known Allergies Allergy Verified 06/23/18 10:59 Exam Data for Last 24 hours Vital signs and Labs for Last 24 Hours: Temp Pulse Resp BP Pulse Ox O2 Del Method 98.3 F 68 30 H 100/73 L 97 Room Air 12/29/24 23:46 12/30/24 00:30 12/30/24 00:30 12/30/24 00:30 12/30/24 00:30 12/29/24 23:46 Laboratory Results - last 24 hr 12/29/24 23:19: WBC 11.0 H, RBC 4.66, Hgb 14.9, Hct 42.6, MCV 91.4, MCH 32.0 H, MCHC 35.0, RDW 11.9, Plt Count 286, MPV 9.2, Neut % (Auto) 37.9, Lymph % (Auto) 48.8, [place] % (Auto) 8.8, Eos % (Auto) 3.0, Baso % (Auto) 1.3, Neut # (Auto) 4.2, Lymph # (Auto) 5.4 H, [place] # (Auto) 1.0, Eos # (Auto) 0.3, Baso # (Auto) 0.1, Total Counted 100, Neutrophils % (Manual) 30 L, Lymphocytes % (Manual) 51 H, Monocytes % (Manual) 13 H, Eosinophils % (Manual) 3, Basophils % (Manual) 3.0 H, Platelet Estimate Normal, RBC Morphology Normal, PT 10.9, INR 0.98, D-Dimer 0.90 H, Sodium 138, Potassium 3.3 L, Chloride 105, Carbon Dioxide 23, Anion Gap 13.3, BUN 14, Creatinine 0.90, Estimated GFR 88, Est GFR ( Amer) 106, Glucose 108 H, Calcium 9.6, Total Bilirubin 0.9, AST 44, ALT 41, Alkaline Phosphatase 68, Troponin I < 0.01, NT-Pro-B Natriuret Pep 23.7, Total Protein 8.0, Albumin 4.9, Globulin 3.1, Albumin/Globulin Ratio 1.6, HCV Ab KATHRYN w/Rflx PCR Qn Negative, HIV Ag/Ab Combo Qual Negative I & O for Last 24 hours: Intake & Output 12/27/24 12/28/24 12/29/24 12/30/24 23:59 23:59 23:59 23:59 Weight 72.575 kg Constitutional Constitutional: no acute distress Comments: Complete hearing loss. *Routine HEENT Exam Head: Present normocephalic Eye: Present EOMI and PERRL ENT: Present mucous membranes moist *Routine Neck Exam Neck: Present supple; Absent lymphadenopathy *Routine Respiratory Exam Respiratory: Present CTA bilaterally *Routine Cardiovascular Exam Cardiovascular: Present RRR *Routine Abdominal Exam Abdominal: Present soft and normoactive bowel sounds; Absent tenderness *Routine Rectal Exam Rectal:: deferred *Routine Genitalia Exam Genitalia:: deferred *Routine Extremities Exam Extremities: Absent cyanosis, clubbing or edema *Routine Skin Exam Skin: Present warm; Absent rash *Routine Neurological Exam Neurological: Present alert and oriented X3 Assessment and Plan *Assessment and plan (1) NSTEMI (non-ST elevated myocardial infarction): Status: Acute Category: Medical Code(s): I21.4 - Non-ST elevation (NSTEMI) myocardial infarction (2) LV dysfunction: Status: Acute Category: Medical Code(s): I51.9 - Heart disease, unspecified (3) Hypertension: Status: Acute Category: Medical Code(s): I10 - Essential (primary) hypertension (4) Complete hearing loss: Status: Acute Category: Medical Code(s): H91.90 - Unspecified hearing loss, unspecified ear (5) GERD (gastroesophageal reflux disease): Status: Acute Category: Medical Code(s): K21.9 - Gastro-esophageal reflux disease without esophagitis Plan Howard Mitchell is a 54-year-old male with medical history significant for complete hearing loss, HFrEF 30% with AICD, hypertension, hyperlipidemia, GERD sudden onset chest pain around 10:30 PM last night. He states it was predominantly in the lower sternal area, describing it as very tight and squeezing pain with radiation down left arm. He states he has had chest pain like this before but never this severe. He reports he follows with Dr. Gallo Nieto in [place] for his HFrEF 30%, but states he has never had any coronary stenting and is a non-smoker. On arrival, vital signs were stable but patient continued to have chest pain. He was given nitro x 2, morphine with eventual relief of chest pain. He was also given aspirin 324 mg. Workup in the ED significant for initial normal troponin and EKG with nonspecific ST changes but without STEMI. CXR, CTA chest unremarkable. Dr. Ruffin was consulted by the ED provider who recommended admission for workup and monitoring. Given these findings, ED provider discussed case with me and I decided to admit patient for further evaluation of chest pain. On my evaluation, patient was resting in bed comfortably without acute distress. Second troponin resulted to 1.13. Heparin drip was started. #NSTEMI type I #History of LV dysfunction ? Presented with acute onset lower sternal chest pain with radiation to left arm. Troponins uptrending to 1.13, EKG with nonspecific ST wave changes without STEMI. ? CXR, CTA chest without acute findings. Patient is a non-smoker. ? Follows with [place] cardiology Dr. Gallo Nieto, apparently has a LVEF of 30% with presumed AICD. Pending medical records. ? Started heparin drip, pharmacy to dose. ? Started aspirin 81 mg, metoprolol succinate 25 mg, atorvastatin 40 mg. ? Follow-up ECHO. ? Follow-up A1c, lipid panel, TSH. ? Cardiology consulted, pending further recommendations. Patient is amenable to LHC if appropriate. ? Continuous cardiac telemetry. #Hypertension ? Continue home medications once reconciled. #GERD ? Continue home PPI. #Complete hearing loss ? Continue supportive care. 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 Full code DVT prophylaxis: Heparin drip
--- NOTE | 2024-12-30 01:00 | CT_ITS ---
PROCEDURE INFORMATION: Exam: CTA Chest With Contrast Exam date and time: 12/30/2024 1:31 AM Age: 54 years old Clinical indication: Pain; Chest pressure; Additional info: Chest pain TECHNIQUE: Imaging protocol: Computed tomographic angiography of the chest with contrast. Exam focused on the arteries. 3D rendering (Not supervised by radiologist): MIP and/or 3D reconstructed images were created by the technologist. Radiation optimization: All CT scans at this facility use at least one of these dose optimization techniques: automated exposure control; mA and/or kV adjustment per patient size (includes targeted exams where dose is matched to clinical indication); or iterative reconstruction. Contrast material: ISOVUE; Contrast volume: 80 ml; Contrast route: INTRAVENOUS (IV); COMPARISON: CR XR CHEST PORTABLE 12/29/2024 11:36 PM FINDINGS: Limitations: Streak artifact - mild. Motion artifact - mild. Tubes, catheters and devices: LEFT pacemaker. Pulmonary arteries: No definite pulmonary embolism. Aorta: Unremarkable. No aneurysm. Lungs: Minimal atelectasis/scarring. No consolidation. Calcified granuloma within LEFT upper lobe. Pleural spaces: No significant pleural effusion. No pneumothorax. Heart: No cardiomegaly. No pericardial effusion. Lymph nodes: No pathologically enlarged lymph nodes. Spleen: Few calcifications. Bones/joints: No acute fracture. Soft tissues: Unremarkable. IMPRESSION: No definite CT evidence of pulmonary embolism.
[2024-12-30] MEDS: 0.9 % SODIUM CHLORIDE 50 ML VIAL IV (01:39)
[2024-12-30] MEDS: SODIUM CHLORIDE 0.9% 10ML SYR (RAD ONLY) 10 ML IV (01:40)
[2024-12-30] MEDS: IOPAMIDOL-370 (76%);100ML BOTTLE 80 ML IV (01:40)
[2024-12-30] MEDS: POTASSIUM CHLORIDE 20MEQ TAB 40 MEQ PO ×2 (02:40→06:28)
--- NOTE | 2024-12-30 03:07 | PC.NURSE ---
Patient stated he does have an allergy, patient wrote on the white board MICHAEL, but unsure of the name of allergy.
[2024-12-30 03:08] LABS: Troponin I 1.13 ng/ml (0.00-0.034)
--- NOTE | 2024-12-30 03:11 | PC.NURSE ---
at 0307 the Lab called with a critical Lab result. 1.13 trop. Phoned Jayme Ashford MD and he gave me a verbal order to consult pharmacy for the drip. order is placed. Ariadna Palmer RN
[2024-12-30 03:51] LABS: PTT Heparin (inpatient only) 26.5 Seconds (50-75)
--- NOTE | 2024-12-30 03:53 | PC.NURSE ---
lab results were called at 0350 phoned at 0354 Jayme Ashford Md, ptt was 26.5 critical. Provider was notified PALMIRA BEY RN
[2024-12-30] MEDS: HEPARIN SODIUM,PORCINE/D5W 500 ML 18 UNIT IV (04:13)
[2024-12-30] MEDS: HEPARIN SODIUM 5,000 UNIT/ML VIAL 4000 UNIT IV (04:14)
[2024-12-30] MEDS: HEPARIN DRIP CONSULT 1 EACH NOTAPPLIC (04:15)
--- NOTE | 2024-12-30 06:02 | CA_ITS ---
APPROVED REPORT EXAM: Comprehensive 2D, Doppler, and color-flow Echocardiogram Manager Summer: Zita Piña RT(R) Ht: 5 ft 6 in Wt: 200lbs BSA: 2.00 BP: 100/73 mmHg Indications: unstable angina, patient is deaf, pacemaker 2D Dimensions EF AP4 35.00 % GL Strain -8.0 % M-Mode Dimensions RVDd 2.75 cm (0.9-2.6) LA Diam 2.69 cm (1.9-4.0) LVDd 5.21 cm (3.5-5.7) LVDs 4.50 cm (3.5-5.7) IVSd 0.82 cm (0.6-1.1) PWd 0.71 cm (0.6-1.1) EF (Teich) 29.00% FS 13.60% EDV (Teich) 130.10 mL ESV (Teich) 92.40 mL LV Diastology E Decel Time 290 (160-240 msec) E/A Ratio 0.67 Mitral Valve MV A Velocity 76.0 (40-130 cm/s) E/A Ratio 0.67 Tricuspid Valve TR P. Velocity 236.00 cm/s Left Ventricle The left ventricle is normal size. Left ventricular systolic function is mildly reduced. There is increased left ventricular wall thickness. The septum is asynchronous. Transmitral Doppler flow pattern suggests impaired LV relaxation. LVEF is 45% Right Ventricle The right ventricle is mildly dilated. The right ventricular systolic function is normal. There is a device lead in the right ventricle. Atria The left atrium size is normal. The right atrium size is normal. There is no color Doppler evidence of interatrial shunt. Aortic Valve The aortic valve opens well. There is no hemodynamically significant aortic valvular stenosis. No aortic regurgitation is present. Mitral Valve The mitral valve is normal in structure. No evidence of mitral valve stenosis. Trace mitral regurgitation is present. Tricuspid Valve The tricuspid valve leaflets are thin and pliable. Mild tricuspid regurgitation. RVSP is 25-30 mmHg. Pulmonic Valve The pulmonary valve is grossly normal in structure. Trace pulmonic valve regurgitation is present. Great Vessels The aortic root is normal in size. IVC is normal in size and collapses >50% with inspiration. Pericardium There is no pericardial effusion. Other Information Study Quality: Fair Conclusion Mildly reduced LV systolic function (LVEF 45%). Asynchronous septum. Mild RV dilation with normal RV function. Mild TR. Electronically signed by : Roshni Barraza MD 12/30/2024 12:31:46
[2024-12-30 06:11] LABS: Hematocrit 38.6 % (42.0-52.0); Immature Granulocytes % 0.2 %; Mean Corpuscular HGB Conc 33.7 g/dL (31.8-35.4); Mean Corpuscular Hemoglobin 31.6 pg (27.0-31.2); Mean Corpuscular Volume 93.7 fl (80-94); Nucleated Red Blood Cells % 0 %; Platelet Count 214 K/mm3 (142-424); Red Blood Count 4.12 M/mm3 (4.60-6.20); Red Cell Distribution Width-SD 41.4 fL; White Blood Count 9.5 K/mm3 (4.8-10.8)
[2024-12-30 06:16] LABS: Hemoglobin 13.3 g/dL (14.1-18.0)
--- NOTE | 2024-12-30 06:34 | PC.NURSE ---
Pt was a new admit over night. Pt and his are both deaf. PT came to ER presenting with CP , with left arm numbness. Pt troponin were elevated to 1.13 phoned Jayme Ashford MD, He ordered a consult for a heparin Drip from pharmacy. Heparin started about 430 or so. Pt has slept about 2 hours over night, Dr Jayme Ashford came and seen him and his this morning. Explaining that the pt will be having cardiology come see them this morning and that the PT was getting a echo this morning also. Pt was agreeable. PALMIRA BEY RN
[2024-12-30 06:48] LABS: Alanine Aminotransferase 33 U/L (12-78); Albumin Level 3.8 g/dl (3.5-5.0); Albumin/Globulin Ratio 1.5 (1.1-1.8); Alkaline Phosphatase 74 U/L (38-126); Anion Gap 7.5 mEq/L (5-15); Aspartate Amino Transferase 43 U/L (17-59); Bilirubin,Total 0.9 mg/dl (0.2-1.3); Blood Urea Nitrogen 13 mg/dl (9-20); Calcium 8.9 mg/dl (8.4-10.2); Carbon Dioxide 28 mmol/L (22.0-30.0); Chloride 105 mmol/L (98-107); Cholesterol 181 mg/dl (140-200); Creatinine Clearance Estimated 121 mL/min (50-200); Creatinine,Serum 0.90 mg/dl (0.66-1.25); Estimated Glomerular Filt Rate 88 ml/min (>60); GFR (African American) 106 ML/MIN (>60); Globulin 2.6 g/dL (1.3-3.2); Glucose 112 mg/dl (74-100); HDL Cholesterol 37 mg/dl (40-60); Magnesium 1.8 mg/dl (1.6-2.3); Potassium 4.5 mmoL/L (3.5-5.1); Sodium 136 mmol/L (136-145); Total Protein,Serum 6.4 g/dl (6.3-8.2); Triglycerides 99 mg/dl (30-150)
[2024-12-30 07:00] LABS: Troponin I 2.12 ng/ml (0.00-0.034)
--- NOTE | 2024-12-30 07:04 | PC.NURSE ---
Phoned Dr Jayme Ashford I was called at 659 critical troponin at 2.12. He is having the Pt be seen By cardiology today. PALMIRA BEY RN.
[2024-12-30 07:18] LABS: Thyroid Stimulating Hormone 1.55 uIU/mL (0.465-4.68)
--- NOTE | 2024-12-30 07:37 | HMH.PHAINT1 ---
Pharmacy Intervention Comments: HOME MEDICATION LIST VERIFIED USING LIST FROM OUTPATIENT PHARMACY
--- NOTE | 2024-12-30 07:49 | HMH.PHAHEP ---
[facility] Heparin Dosing Demographic Data Admission date:: 12/30/24 Date: 12/30/24 Time: 07:49 Allergies Allergy/AdvReac Type Severity Reaction Status Date / Time No Known Allergies Allergy Verified 06/23/18 10:59 Height: 1.7 m Weight: 91.1 kg Indication Medication therapy:: Heparin Current Active Problems (Updated 12/30/24 @ 12:57 by LISSA Giles) History of pacemaker (Acute) Complete hearing loss (Acute) Hypertension (Acute) LV dysfunction (Acute) NSTEMI (non-ST elevated myocardial infarction) (Acute) Chest pain (Acute) GERD (gastroesophageal reflux disease) (Acute) CVA?: No Bleeding problem?: No Kidney disease?: No [place]?: No Desired PTT range:: 50-75 seconds Labs Anticoagulation Lab Results:: 12/29/24 12/30/24 23:19 05:44 Hgb 14.9 13.3 L D Hct 42.6 38.6 L Plt Count 286 214 D Monitoring Dose Monitor 1: Date: 12/30/24 Time: 02:30 PTT Result:: 26.5 Infusion Rate:: 900 UNITS/HR Comment:: 4,000 UNIT BOLUS Dose Monitor 2: Date: 12/30/24 Time: 10:00 PTT Result:: 53.1 Infusion Rate:: 900 UNITS/HR Comment:: STOPPED AFTER CATH Core Measures Is INR > or = 2 at discharge?: No Most Recent Labs:: Laboratory Results - last 24 hr 12/29/24 23:19: WBC 11.0 H, RBC 4.66, Hgb 14.9, Hct 42.6, MCV 91.4, MCH 32.0 H, MCHC 35.0, RDW 11.9, Plt Count 286, MPV 9.2, Neut % (Auto) 37.9, Lymph % (Auto) 48.8, [place] % (Auto) 8.8, Eos % (Auto) 3.0, Baso % (Auto) 1.3, Neut # (Auto) 4.2, Lymph # (Auto) 5.4 H, [place] # (Auto) 1.0, Eos # (Auto) 0.3, Baso # (Auto) 0.1, Total Counted 100, Neutrophils % (Manual) 30 L, Lymphocytes % (Manual) 51 H, Monocytes % (Manual) 13 H, Eosinophils % (Manual) 3, Basophils % (Manual) 3.0 H, Platelet Estimate Normal, RBC Morphology Normal, PT 10.9, INR 0.98, D-Dimer 0.90 H, Sodium 138, Potassium 3.3 L, Chloride 105, Carbon Dioxide 23, Anion Gap 13.3, BUN 14, Creatinine 0.90, Estimated GFR 88, Est GFR ( Amer) 106, Glucose 108 H, Calcium 9.6, Total Bilirubin 0.9, AST 44, ALT 41, Alkaline Phosphatase 68, Troponin I < 0.01, NT-Pro-B Natriuret Pep 23.7, Total Protein 8.0, Albumin 4.9, Globulin 3.1, Albumin/Globulin Ratio 1.6, HCV Ab KATHRYN w/Rflx PCR Qn Negative, HIV Ag/Ab Combo Qual Negative 12/30/24 02:38: Troponin I 1.13 H 12/30/24 03:26: APTT 26.5 L 12/30/24 05:44: WBC 9.5, RBC 4.12 L, Hgb 13.3 L D, Hct 38.6 L, MCV 93.7, MCH 31.6 H, MCHC 33.7, RDW 12.0, Plt Count 214 D, MPV 9.3, Neut % (Auto) 55.3, Lymph % (Auto) 35.3, [place] % (Auto) 5.8, Eos % (Auto) 2.6, Baso % (Auto) 0.8, Neut # (Auto) 5.2, Lymph # (Auto) 3.3, [place] # (Auto) 0.6, Eos # (Auto) 0.3, Baso # (Auto) 0.1, Sodium 136, Potassium 4.5 D, Chloride 105, Carbon Dioxide 28, Anion Gap 7.5, BUN 13, Creatinine 0.90, Estimated Creat Clear 121, Estimated GFR 88, Est GFR ( Amer) 106, Glucose 112 H, Calcium 8.9, Magnesium 1.8, Total Bilirubin 0.9, AST 43, ALT 33, Alkaline Phosphatase 74, Troponin I 2.12 H, Total Protein 6.4, Albumin 3.8 D, Globulin 2.6, Albumin/Globulin Ratio 1.5, Triglycerides 99, Cholesterol 181, LDL Cholesterol Direct 96.82 L, VLDL Cholesterol 20, HDL Cholesterol 37 L, Cholesterol/HDL Ratio 4.9 H, TSH 1.55 Were Heparin and Warfarin started on the same day?: No If not, why?: HEPARIN DRIP STOPPED AFTER CATH
[2024-12-30 08:33] LABS: Hemoglobin A1C 5.9 % (4.0-6.0)
[2024-12-30] MEDS: ASPIRIN EC 81MG TABLET 81 MG PO (08:51)
[2024-12-30] MEDS: METOPROLOL SUCCINATE XL 25MG TABLET 25 MG PO (08:51)
[2024-12-30 10:17] LABS: PTT Heparin (inpatient only) 53.1 Seconds (50-75)
--- NOTE | 2024-12-30 11:27 | IR_ITS ---
APPROVED REPORT Patient Location: Inpatient Property Maintenance Technician: PEPITO Rose RT (R) PROCEDURES Left heart catheterization Left ventriculogram Selective coronary angiogram Drug-eluting stent deployment to the ostial proximal LAD Intravascular ultrasound of the LAD INDICATION Acute non-ST elevation myocardial infarction, Coronary artery disease, Complex intervention requiring IVUS for guidance Informed consent was obtained prior to the procedure. COMPLICATIONS None Estimated Blood Loss: Less than 10 mls TECHNIQUE One percent lidocaine used to anesthetize the right anterior aspect of the wrist. The right radial artery was accessed via the Seldinger technique. A 6 Stateless sheath was placed in the right radial artery. 2.5 mg of Verapamil, 800 mcg of nitroglycerin, 1mg Lidocaine and 5000 U Heparin were given through the arterial sheath. The JL3 catheter was also used to perform left heart catheterization, left ventriculogram and selective coronary angiogram. At the end the diagnostic angiogram therapeutic Was administered giving a therapeutic ACT and the guide catheter was placed in the left main artery followed by Choice PT extra-support wire placed down the LAD. A 3 mm x 12 mm [place] frontier stent was deployed at 16 misbah reducing the stenosis to 0%. CATA II flow was present at the beginning of the procedure with CATA-3 flow at the end of the procedure. Following this intravascular ultrasound probe was advanced which demonstrated severe atherosclerotic plaque proximal to the stent. The stent was adequately sized. There is excellent distal transitioning. An additional 3 mm x 12 mm [place] frontier stent was placed proximal to the for stent yet still overlapping and landed in the ostium of the LAD extending to the proximal segment. This was deployed at 20 misbah reducing the critical stenosis to 0%. After achieving excellent angiographic results apparatus was removed the sheath was removed and hemostasis was achieved using TR banding patient was transferred to the postop boarding in stable condition ANGIOGRAPHIC RESULTS The left main artery Has a distal 20% stenosis The left anterior descending artery Has an ostial 80% followed by proximal 90% stenosis The circumflex artery Is nondominant gives rise to a large bifurcating ramus intermedius which has 10% luminal regularities. The circumflex artery itself is normal The right coronary artery Large dominant with an anterior takeoff which has 10 to 20% luminal regularities The GARCIA ventriculogram reveals Reduced ejection fraction 40% The left ventricular end-diastolic pressure 15 mmHg IMPRESSION Critical ostial proximal LAD disease as described above Successful stent to the ostial proximal LAD critical disease reduced to 0% with 2 contiguous drug-eluting stents Reduced ejection fraction Normal LVEDP PLAN 1. Dual antiplatelet therapy 2. Cardiac rehabilitation 3. Avoidance of tobacco products 4. LDL less than 55 to be achieved with high intensity statin 5. Aggressive risk factor modification Electronically signed by : Miguel Angel Ruffin MD 12/30/2024 14:17:58
--- NOTE | 2024-12-30 12:47 | CARE MANAGER ---
Current Medications Acetaminophen (Acetaminophen 325mg Tab) 650 mg PO Q4HP PRN PRN Reason: Fever or Mild Pain (1-3) Stop: 01/29/25 00:55 Aspirin (Aspirin Ec 81mg Tablet) 81 mg PO DAILY JENIFFER Stop: 01/29/25 08:59 Last Admin: 12/30/24 08:51 Dose: 81 mg Atorvastatin Calcium (Atorvastatin 40mg Tablet) 40 mg PO HS [facility] Stop: 01/29/25 20:59 Heparin Sodium/Dextrose (Heparin 25,000 Units In D5w 500ml Premix) 500 mls @ 18 mls/hr IV .Q25H JENIFFER Stop: 01/29/25 04:14 Last Admin: 12/30/24 04:13 Dose: 900 units/hr, 18 mls/hr Metoprolol Succinate (Metoprolol Succinate Xl 25mg Tablet) 25 mg PO DAILY JENIFFER Stop: 01/29/25 08:59 Last Admin: 12/30/24 08:51 Dose: 25 mg Nitroglycerin (Nitroglycerin 0.4mg Sl Tablet) 0.4 mg SL Q5MINP PRN PRN Reason: Chest Pain Stop: 12/30/24 23:27 Last Admin: 12/30/24 00:01 Dose: 0.4 mg Ondansetron HCl (Ondansetron 4mg/2ml Vial) 4 mg IV Q8HP PRN PRN Reason: Nausea Stop: 01/29/25 00:55 Pantoprazole Sodium (Pantoprazole 40mg Tablet) 40 mg PO HS [facility] Stop: 01/29/25 20:59 Sodium Chloride (Sodium Chloride 0.9% 10ml Flush Syringe) 10 ml IV NEEDED PRN PRN Reason: Maintain IV Site Stop: 01/29/25 07:34 Laboratory Tests 12/29/24 12/30/24 12/30/24 23:19 02:38 03:26 WBC 11.0 H RBC 4.66 Hgb 14.9 Hct 42.6 MCV 91.4 MCH 32.0 H MCHC 35.0 RDW 11.9 Plt Count 286 MPV 9.2 Neut % (Auto) 37.9 Lymph % (Auto) 48.8 [place] % (Auto) 8.8 Eos % (Auto) 3.0 Baso % (Auto) 1.3 Neut # (Auto) 4.2 Lymph # (Auto) 5.4 H [place] # (Auto) 1.0 Eos # (Auto) 0.3 Baso # (Auto) 0.1 Total Counted 100 Neutrophils % (Manual) 30 L Lymphocytes % (Manual) 51 H Monocytes % (Manual) 13 H Eosinophils % (Manual) 3 Basophils % (Manual) 3.0 H Platelet Estimate Normal RBC Morphology Normal PT 10.9 INR 0.98 APTT 26.5 L D-Dimer 0.90 H Sodium 138 Potassium 3.3 L Chloride 105 Carbon Dioxide 23 Anion Gap 13.3 BUN 14 Creatinine 0.90 Estimated Creat Clear Estimated GFR 88 Est GFR ( Amer) 106 Glucose 108 H Hemoglobin A1c Calcium 9.6 Magnesium Total Bilirubin 0.9 AST 44 ALT 41 Alkaline Phosphatase 68 Troponin I < 0.01 1.13 H NT-Pro-B Natriuret Pep 23.7 Total Protein 8.0 Albumin 4.9 Globulin 3.1 Albumin/Globulin Ratio 1.6 Triglycerides Cholesterol LDL Cholesterol Direct VLDL Cholesterol HDL Cholesterol Cholesterol/HDL Ratio TSH HCV Ab KATHRYN w/Rflx PCR Qn Negative HIV Ag/Ab Combo Qual Negative 12/30/24 12/30/24 05:44 09:58 WBC 9.5 RBC 4.12 L Hgb 13.3 L D Hct 38.6 L MCV 93.7 MCH 31.6 H MCHC 33.7 RDW 12.0 Plt Count 214 D MPV 9.3 Neut % (Auto) 55.3 Lymph % (Auto) 35.3 [place] % (Auto) 5.8 Eos % (Auto) 2.6 Baso % (Auto) 0.8 Neut # (Auto) 5.2 Lymph # (Auto) 3.3 [place] # (Auto) 0.6 Eos # (Auto) 0.3 Baso # (Auto) 0.1 Total Counted Neutrophils % (Manual) Lymphocytes % (Manual) Monocytes % (Manual) Eosinophils % (Manual) Basophils % (Manual) Platelet Estimate RBC Morphology PT INR APTT 53.1 D-Dimer Sodium 136 Potassium 4.5 D Chloride 105 Carbon Dioxide 28 Anion Gap 7.5 BUN 13 Creatinine 0.90 Estimated Creat Clear 121 Estimated GFR 88 Est GFR ( Amer) 106 Glucose 112 H Hemoglobin A1c 5.9 Calcium 8.9 Magnesium 1.8 Total Bilirubin 0.9 AST 43 ALT 33 Alkaline Phosphatase 74 Troponin I 2.12 H NT-Pro-B Natriuret Pep Total Protein 6.4 Albumin 3.8 D Globulin 2.6 Albumin/Globulin Ratio 1.5 Triglycerides 99 Cholesterol 181 LDL Cholesterol Direct 96.82 L VLDL Cholesterol 20 HDL Cholesterol 37 L Cholesterol/HDL Ratio 4.9 H TSH 1.55 HCV Ab KATHRYN w/Rflx PCR Qn HIV Ag/Ab Combo Qual Vital Signs Pulse Rate 80 12/29/24 23:31 Respiratory Rate 23 12/29/24 23:31 Blood Pressure 136/83 12/29/24 23:31 02 Sat by Pulse Oximetry 99 12/29/24 23:31 Oxygen Delivery Method Room Air 12/29/24 23:31 Temperature 97.9 F 12/30/24 11:53 Pulse Rate 60 12/30/24 12:00 Respiratory Rate 20 12/30/24 11:53 Blood Pressure 123/75 12/30/24 11:53 02 Sat by Pulse Oximetry 96 12/30/24 11:53 Oxygen Delivery Method Room Air 12/30/24 11:53
--- NOTE | 2024-12-30 12:49 | P.CONCA_ITS ---
History of Present Illness History of Present Illness Consult date: 12/30/24 Consult reason: chest pain Chief complaint: chest pain History of present illness: 55-year-old hearing-impaired male admitted around midnight last night with CP fo r ACS rule out which is why we are consulted. He has history of permanent pacer implant, details of this are unclear, records have been requested. He also has a history of high blood pressure and high cholesterol. He presented to the emergency room with complaints of sudden onset 8/10 crushing chest pain radiating to his left arm. Initial troponins normal but have trended up greater than 2. EKG shows V pacing. There is no operations intelligence superintendent here at this time so patient is communicating with using a white board or texting with staff. I advised him it appears he has had an NSTEMI and would benefit from left heart cath and he is agreeable. I offered [facility] operations intelligence superintendent and he is also agreeable to this. Will reassess once they arrive. [facility] Disclaimer: The information contained in this section may have been updated after the patient was seen, as this information can be updated by other users. Medical History Pacemaker Social History Smoking Status: Never smoker second hand exposure: No alcohol intake: never current occupational status: employed Travel in the last 8 weeks?: None household members: spouse housing: house caffeine: Yes Have you lived/traveled outside US in past 30 days?: No Contact w/someone who lives/traveled outside US past 30 days?: No Exposure to someone with infectious disease in past 14 days?: No Do you have a fever (greater than 100.4 F or 38 C)?: No Have you tested positive for COVID-19?: No Exposed to someone with COVID-19 in past 14 days?: No Do you have a sore throat?: No Do you have a cough?: No Do you have any weakness?: No Are you experiencing any nausea/vomitting?: No Do you have any diarrhea?: No Are you experiencing any unusual bleeding?: No Do you have any muscle aches/pain?: No Do you have any abdominal pain?: No Are you experiencing loss of taste or smell?: No Review of Systems Constitutional Constitutional: Denies fatigue and Denies weakness Eyes Eyes: Denies loss of vision ENT Ears, Nose, Mouth, and Throat: Denies hearing loss and Denies vertigo *Cardiovascular Cardiovascular: Reports chest pain, Denies dyspnea and Denies syncope *Respiratory Respiratory: Denies cough and Denies dyspnea *Gastrointestinal Gastrointestinal: Denies change in stool character, Denies nausea and Denies vomiting *Genitourinary Genitourinary: Denies difficulty urinating *Musculoskeletal Musculoskeletal: Denies muscle weakness Integumentary/Breasts Skin/Breast: Denies changing lesions *Neurologic Neurologic: Denies loss of vision, Denies syncope, Denies vertigo and Denies weakness Endocrine Endocrine: Denies fatigue Exam Data for Last 24 hours Vital signs and Labs for Last 24 Hours: Temp Pulse Resp BP Pulse Ox O2 Del Method 97.9 F 60 20 123/75 96 Room Air 12/30/24 11:53 12/30/24 12:00 12/30/24 11:53 12/30/24 11:53 12/30/24 11:53 12/30/24 11:53 Laboratory Results - last 24 hr 12/29/24 23:19: WBC 11.0 H, RBC 4.66, Hgb 14.9, Hct 42.6, MCV 91.4, MCH 32.0 H, MCHC 35.0, RDW 11.9, Plt Count 286, MPV 9.2, Neut % (Auto) 37.9, Lymph % (Auto) 48.8, [place] % (Auto) 8.8, Eos % (Auto) 3.0, Baso % (Auto) 1.3, Neut # (Auto) 4.2, Lymph # (Auto) 5.4 H, [place] # (Auto) 1.0, Eos # (Auto) 0.3, Baso # (Auto) 0.1, Total Counted 100, Neutrophils % (Manual) 30 L, Lymphocytes % (Manual) 51 H, Monocytes % (Manual) 13 H, Eosinophils % (Manual) 3, Basophils % (Manual) 3.0 H, Platelet Estimate Normal, RBC Morphology Normal, PT 10.9, INR 0.98, D-Dimer 0.90 H, Sodium 138, Potassium 3.3 L, Chloride 105, Carbon Dioxide 23, Anion Gap 13.3, BUN 14, Creatinine 0.90, Estimated GFR 88, Est GFR ( Amer) 106, Glucose 108 H, Calcium 9.6, Total Bilirubin 0.9, AST 44, ALT 41, Alkaline Phosphatase 68, Troponin I < 0.01, NT-Pro-B Natriuret Pep 23.7, Total Protein 8.0, Albumin 4.9, Globulin 3.1, Albumin/Globulin Ratio 1.6, HCV Ab KATHRYN w/Rflx PCR Qn Negative, HIV Ag/Ab Combo Qual Negative 12/30/24 02:38: Troponin I 1.13 H 12/30/24 03:26: APTT 26.5 L 12/30/24 05:44: WBC 9.5, RBC 4.12 L, Hgb 13.3 L D, Hct 38.6 L, MCV 93.7, MCH 31.6 H, MCHC 33.7, RDW 12.0, Plt Count 214 D, MPV 9.3, Neut % (Auto) 55.3, Lymph % (Auto) 35.3, [place] % (Auto) 5.8, Eos % (Auto) 2.6, Baso % (Auto) 0.8, Neut # (Auto) 5.2, Lymph # (Auto) 3.3, [place] # (Auto) 0.6, Eos # (Auto) 0.3, Baso # (Auto) 0.1, Sodium 136, Potassium 4.5 D, Chloride 105, Carbon Dioxide 28, Anion Gap 7.5, BUN 13, Creatinine 0.90, Estimated Creat Clear 121, Estimated GFR 88, Est GFR ( Amer) 106, Glucose 112 H, Hemoglobin A1c 5.9, Calcium 8.9, Magnesium 1.8, Total Bilirubin 0.9, AST 43, ALT 33, Alkaline Phosphatase 74, Troponin I 2.12 H, Total Protein 6.4, Albumin 3.8 D, Globulin 2.6, Albumin/Globulin Ratio 1.5, Triglycerides 99, Cholesterol 181, LDL Cholesterol Direct 96.82 L, VLDL Cholesterol 20, HDL Cholesterol 37 L, Cholesterol/HDL Ratio 4.9 H, TSH 1.55 12/30/24 09:58: APTT 53.1 I & O for Last 24 hours: Intake & Output 12/27/24 12/28/24 12/29/24 12/30/24 23:59 23:59 23:59 23:59 Intake Total 300 / 300 Output Total 0 / 0 Balance 300 / 300 Weight 160 lb 200 lb 13.458 oz Meds Home Medications and Allergies Home Medications ?Medication ?Instructions ?Recorded ?Confirmed ?Type atorvastatin 10 mg tablet 10 mg PO DAILY 12/30/2406/24 History cetirizine 10 mg tablet 10 mg PO DAILY 12/30/2406/24 History lansoprazole 30 mg capsule,delayed 30 mg PO DAILY 06/2412/30/24 History release lisinopril 5 mg tablet 5 mg PO DAILY 12/30/2412/30 History metoprolol succinate 25 mg 25 mg PO DAILY 12/30/2406/24 History tablet,extended release 24 hr New Prescriptions to Start Prescriptions: Allergies Allergy/AdvReac Type Severity Reaction Status Date / Time No Known Allergies Allergy Verified 06/23/18 10:59 Assessment and Plan *Assessment and plan (1) NSTEMI (non-ST elevated myocardial infarction): Status: Acute Category: Medical Code(s): I21.4 - Non-ST elevation (NSTEMI) myocardial infarction (2) LV dysfunction: Status: Acute Category: Medical Code(s): I51.9 - Heart disease, unspecified (3) History of pacemaker: Status: Acute Category: Medical Code(s): Z95.0 - Presence of cardiac pacemaker Plan NSTEMI - 10 crushing chest pain with rising serial troponin - cont Heparin, ASA, Statin, BB - Pt agreeable to [facility] today - will review procedure/consent again once [facility] operations intelligence superintendent arrives HFrEF - EF 45% on ECHO, unknown duration/etiology, will gather records - on Lisinopril and Metroplol at home - pt euvolemic s/p PPM - v-pacing here - [employer] devic - will do device download Hearing Impaired - complete hearing loss, can read/write most things but will have operations intelligence superintendent available nahid-procedure. ADDENDUM: Pacemaker interrogation revealed normal function, 99% BiV paced. Left heart cath revealed critical ostial proximal LAD disease with both 80 and 90% stenosis, stented successfully. Patient started on Effient. He is CV stable for discharge home following standard post cath protocol. He needs office f/u here or with [facility] within 2 weeks. CV DC medications: Aspirin 81 mg 1 p.o. daily Effient 10 mg 1 p.o. daily Atorvastatin 80 mg p.o. daily Metoprolol 25 mg 1 p.o. daily Lisinopril 5 mg 1 p.o. daily
--- OUTSIDE RECORDS SUMMARY | 2024-12-30 12:51 | XMS_ITS | Encounter Summary ---
Author Organization [facility] Address [address] [place] [address] Care Team Providers Care First Aid Nurse Name Role Phone Ophelia Riley MD Primary Care Provider [phone] Celia Avery RN Unavailable Unavailable Encounter Details Date Type Department Care Team (Latest Contact Info) Description 12/22/2024 Travel Social History Tobacco Use Types Packs/Day Years [...] place to sleep or slept in a care home (including now)? No 02/14/2024 PHQ-9 Answer [...] the past 12 months has th e electric, gas, oil, or water company threatened to shut off services in your home? No 02/14/2024 PHQ-2A Answer Date Recorded Patient Health Questionnaire-2 Score 0 10/20/2022 Sex and Gender Information Value Date Recorded Sex Assigned at Not on file Legal Sex Male 7:46 PM EDT Gender Identity Not on file Sexual Orientation Not on file documented as of this encounter Plan of Treatment Upcoming Encounters Date Type Department Care Team (Late st Contact Info) Description 04/06/2025 2:30 PM EST Appointment Cardiac Imaging [address] [place] [address] 04/06/2025 4:00 PM EST Office Visit [facility] [address] [place] [address] Janice Benitez MD [address] [place] [address] documented as of this encounter Visit Diagnoses Not on filedocumented in this encounter Additional Health Concerns Assessment Noted Time PHQ-9 Depression Total Score: 0 11/21/19 25 1:58 PM EDT A fall risk assessment has been complete d for the patient 11/20/2024 1:58 PM EDT A Body Mass Index follow-up plan has been documented for the patient 11/20/2024 2:58 PM EDT documented as of this encounter Care Teams First Aid Nurse Relationship Specialty Start Date End Date Ophelia Riley MD [address] [place] [address] PCP - General Family Medicine 11/24/21 Celia Avery RN [facility] Registered Nurse Cardiology 10/10/23 documented as of this encounter
--- OUTSIDE RECORDS SUMMARY | 2024-12-30 12:51 | XMS_ITS | Encounter Summary ---
Author Organization Healthcare Address [address] [place] [address] Care Team Providers Care Stroke Coordinator Name Role Phone Ophelia Riley MD Primary Care Provider [phone] Celia Avery RN Unavailable Unavailable Encounter Details Date Type Department Care Team (Late st Contact Info) Description 02/06/2022 Outside Procedure External Location [address] [place] [address] Ophelia Riley MD [address] [place] [address] Social History Tobacco Use Types Packs/Day Years Used Date Smoking Tobacco: Never Smokeless Tobacco: Never PHQ-2 Answer Date Recorded Patient Health Questionnaire-2 Score 0 01/13/2022 Sex and Gender Information Value Date Recorded Sex Assigned at Not on file Legal Sex Male 7:46 PM EDT Gender Identity Not on file Sexual Orientation Not on file COVID-19 Exposure Response Date Recorded In the last 10 days, have yo u been in contact with someone who was confirmed or suspected to have Coronavirus/COVID-19? No / Unsure 01/13/2022 3:04 PM EDT documented as of this encounter Plan of Treatment Upcoming Encounters Date Type Department Care Team (Late st Contact Info) Description 04/06/2025 2:30 PM EST Appointment Cardiac Imaging [address] [place] [address] 04/06/2025 4:00 PM EST Office Visit [facility] [place] [facility] [address] [place] [address] Janice Benitez MD [address] [place] [address] documented as of this encounter Procedures Procedure Name Priority Date/Time Associated Diagnosis Comments MR ANGIO HEAD WO IV CONTRAST 02/06/2022 1:32 PM EDT documented in this encounter Results * MR Angio Head wo IV Contrast (02/06/2022 1:32 PM EDT) Anatomical Region Laterality Modality Head Magnetic Resonan ce 02/06/2022 1:32 PM EDT Narrative 02/07/2022 6:43 AM EDT [address] [address] Name: FRANSISCA MITCHELL Exam Date: 02/06/2022 : 1970 Age 51 Gender: M Physician: Ophelia Riley Facility: [facility] Facility HSV: Outpatient Exam: MRA BRAIN W/O FINAL REPORT CLINICAL HISTORY: Dizziness, lightheadedness, and neck pain x 1 month FINDINGS: Multiple projection images of the brain arterial vasculature were obtained without contrast. The raw data images were also reviewed. In obscures some of the detail. The distal internal carotid, distal vertebral and basilar arteries have an unremarkable appearance without evidence of significant stenosis or occlusion. The proximal anterior, middle and posterior cerebral arteries have an unremarkable appearance. There is no evidence of significant stenosis or major branch occlusion. No aneurysm or vascular malformation is identified. IMPRESSION: Motion on many of the images obscures some of the detail. Otherwise, unremarkable MR angiogram of the head. Reviewed, Interpreted and Dictated by Harish Snow III, MD Transcribed by Kourtney Norwood Authenticated and EASTERN Dictated By: HARISH SNOW Transcribed By: Transcribed On: 02/06/2022 4:06 PM Electronically signed by: HARISH SNOW 02/06/2022 Thank you for referring FRANSISCA MITCHELL to [facility]. Legally authenticated by JASPER Sotmoayor III 2022-02-06 16:06:17 Procedure Note Provider, Syd [place] - 02/07/2022 [facility] [address] [place] [address] Name: FRANSISCA MITCHELL Exam Date: 02/06/2022 : 1970 Age 51 Gender: M Physician: Ophelia Riley Facility: [facility] Facility HSV: Outpatient Exam: MRA BRAIN W/O FINAL REPORT CLINICAL HISTORY: Dizziness, lightheadedness, and neck pain x 1 month FINDINGS: Multiple projection images of the brain arterial vasculature were obtained without contrast. The raw data images were also reviewed. In obscures some of the detail. The distal internal carotid, distal vertebral and basilar arteries have an unremarkable appearance without evidence of significant stenosis or occlusion. The proximal anterior, middle and posterior cerebral arteries have an unremarkable appearance. There is no evidence of significant stenosis or major branch occlusion. No aneurysm or vascular malformation is identified. IMPRESSION: Motion on many of the images obscures some of the detail. Otherwise, unremarkable MR angiogram of the head. Reviewed, Interpreted and Dictated by Harish Snow III, MD Transcribed by Kourtney Norwood Authenticated and EASTERN Dictated By: HARISH SNOW Transcribed By: Transcribed On: 02/06/2022 4:06 PM Electronically signed by: HARISH SNOW 02/06/2022 Thank you for referring FRANSISCA MITCHELL to [facility]. Legally authenticated by JASPER Sotomayor III 2022-02-06 16:06:17 us Ophelia Riley MD IMG MRI PROCEDURES Final Resu lt documented in this encounter Visit Diagnoses Not on filedocumented in this encounter Additional Health Concerns Assessment Noted Time A fall risk assessment has been complete d for the patient 06/10/2021 3:09 PM EST documented as of this encounter Care Teams Stroke Coordinator Relationship Specialty Start Date End Date Ophelia Riley MD [address] [place] [address] PCP - General Family Medicine 11/24/21 Celia Avery, RN [facility] - 6 [facility] Registered Nurse Cardiology 10/10/23 documented as of this encounter
--- OUTSIDE RECORDS SUMMARY | 2024-12-30 12:51 | XMS_ITS | Encounter Summary ---
Author Organization [facility] Address [address] [place] [address] Care Team Providers Care Assistant Center Manager Name Role Phone Ophelia Riley MD Primary Care Provider [phone] Celia Avery RN Unavailable Unavailable Encounter Details Date Type Department Care Team (Latest Contact Info) Description 11/20/2024 Travel Social History Tobacco Use Types Packs/Day [...] place to sleep or slept in a assisted (including now)? No 02/14/2024 PHQ-9 Answer Date [...] on file documented as of this encounter Functional Status * AUDIT-C Score Answer Date of Assessment Author 0 11/20/2024 1:55 PM EDT Samira Hernandez * Question Answer Date of Assessment Author Q1: How often do you have a drink containing alcohol? Never 11/20/2024 1:55 PM EDT Kaia Hernandez Q2: How many drinks containing alcohol do [...] way Not at all 11/20/2024 1:58 PM Kaia Fletcher Patient Health Questionnaire -9 Score 0 11/20/2024 1:58 PM Kaia Fletcher * Calculated C-SSRS Risk Score (Lifetime/Recent) Answer Date of Assessment Author No Risk Indicated 11/20/2024 1:55 PM Kaia Fletcher * If you checked off any problems [...] Kaia Hernandez documented as of this encounter Plan of Treatment Upcoming Encounters Date Type Department Care Team (Late st Contact Info) Description 04/06/2025 2:30 PM EST Appointment Cardiac Imaging [address] [place] [address] 04/06/2025 4:00 PM EST Office Visit [facility] [place] [address] [place] [address] Janice Benitez MD [address] [place] [address] documented as of this encounter Visit Diagnoses [...] documented as of this encounter Care Teams Assistant Center Manager Relationship Specialty Start Date End Date [place] [address] PCP - General Family Medicine 11/24/21 Celia Avery RN [facility] - 6 [facility] Registered Nurse Cardiology 10/10/23 documented as of this encounter
--- OUTSIDE RECORDS SUMMARY | 2024-12-30 12:51 | XMS_ITS | Encounter Summary ---
Author Organization Healthcare Address [address] [place] [address] Care Team Providers Care Clinical Resource Coordinator Name Role Phone Ophelia Riley MD Primary Care Provider Celia Avery RN Unavailable Unavailable Encounter Details Date Type Department Care Team (Late st Contact Info) Description 09/07/2023 Outside Procedure External Location [address] [place] [address] Gallo Nieto MD [address] [place] [address] Social History Tobacco Use Types Packs/Day Years Used Date Smoking Tobacco: Never Smokeless Tobacco: Never PHQ-2 Answer Date Recorded Patient Health Questionnaire-2 Score 0 10/20/2022 PHQ-2A Answer Date Recorded Patient Health Questionnaire-2 [...] PM EST Appointment Cardiac Imaging [address] [place] [address] 04/06/2025 4:00 PM EST Office Visit [facility] [place] [facility] [address] [facility] [place] [address] Janice Benitez MD [address] [place] [address] documented as of this encounter Procedures Procedure Name Priority Date/Time Associated Diagnosis Comments ECHO, ADULT TRANSTHORACIC COMPLETE W/ COLOR AND DOPPLER 09/07/2023 3:59 PM EDT documented in this encounter Results * Echo, Adult Transthoracic Complete w/ Color and Doppler (09/07/2023 3:59 PM EDT) Anatomical Region Laterality Modality Ultrasound 09/07/2023 3:59 PM EDT Narrative 09/13/2023 11:55 AM EDT [address] [address] Name: FRANSISCA GIBBS Exam Date: 09/07/2023 : 1970 Age 53 years Gender: M Physician: GALLO NIETO Facility: [facility] Facility HSV: Outpatient Exam: ECHO W SPEC COLOR FLOW Reason for Study: Syncope SUMMARY Normal LV size with severely decreased function. The ejection fraction is 30-35%, Global LV hypokinesis . Left ventricular filling pattern is indeterminate. Compared to 2021 LVEF was 40% INTERPRETATION DETAIL Good quality study. Left ventricle: The left ventricle is normal in size with severely decreased systolic function. The ejection fraction is 30-35%. There is normal LV wall thickness. Global LV hypokinesis without regional heterogeneity. The left ventricular filling pattern is indeterminate. Left atrium: The left atrium is mildly dilated. LA volume: 35.7mL, LA volume index:. Right ventricle: The right ventricle is normal in size with normal function. Right atrium: The right atrium is normal. Mitral valve: The mitral valve is normal. There is no mitral stenosis. There is no mitral regurgitation. Aortic valve: The aortic valve is not well seen, but probably normal. There is with a valve area of 3.05 cardio tech (Peak grad=7mmH g, Mean grad=3mmHg, LVOT serafin=1.90cm, LVOT TVI=23.0cm, Ao TVI=21.4cm). The dimensionless index is 1.07. AV peak vnnqibgq=485tr/sec. Tricuspid valve: The tricuspid valve is normal. There is no tricuspid regurgitation, so PA pressure cannot be estimated. Pulmonic valve: The pulmonic valve is normal. Pericardium: The pericardium is normal. Pulmonary artery: The pulmonary artery is normal. Interatrial septum: The interatrial septum is normal. Aorta: The aorta is normal. The aortic root is normal. Aortic dimensions - Ao M-mode= 3.40cm, Ascending=2.90cm. Vena Cava: The inferior vena cava is normal. MEASUREMENTS Left Ventricle IVSd: 0.91cm (0.6-1.1cm) PWd: 0.97cm (0.6-1.1cm) Mass Ina: 205g LVIDd: 5.63cm (3.7-5.6 cm) LVIDs: 5.12cm (1.8-4.2 cm) RWT: 0.34 (<0.42) E to A: 0.66 (0.6-2) E-e prime med: 8.80 E-e prime lat: 4.40 Decel: 312.00ms (168-232ms) Right Ventricle Mid RV Serafin: 2.4cm (2.7-3.3cm) Max Valve Velocities AV peak becka: 131cm/sec LVOT: 126.00cm/sec Legally authenticated by LEXA Obrien 2023-09-13 11:44:18 Atria LA AP: 2.8cm LA vol: 35.7mL Gallo Nieto MD Dictated By: GALLO NIETO Transcribed By: Transcribed On: 09/13/2023 11:44 AM Electronically signed by: GALLO NIETO 09/13/2023 Thank you for referring PAULAFRANSISCA to [facility]. Legally authenticated by LEXA Obrien 2023-09-13 11:44:18 Procedure Note Provider, Syd [place] - 09/13/[address] [address] Name: FRANSISCA GIBBS Exam Date: 09/07/2023 : 1970 Age 53 years Gender: M Physician: GALLO NIETO Facility: [facility] Facility HSV: Outpatient Exam: ECHO W SPEC COLOR FLOW Reason for Study: Syncope SUMMARY Normal LV size with severely decreased function. The ejection fraction is 30-35%, Global LV hypokinesis . Left ventricular filling pattern is indeterminate. Compared to 2021 LVEF was 40% INTERPRETATION DETAIL Good quality study. Left ventricle: The left ventricle is normal in size with severely decreased systolic function. The ejection fraction is 30-35%. There is normal LV wall thickness. Global LV hypokinesis without regional heterogeneity. The left ventricular filling pattern is indeterminate. Left atrium: The left atrium is mildly dilated. LA volume: 35.7mL, LA volume index:. Right ventricle: The right ventricle is normal in size with normal function. Right atrium: The right atrium is normal. Mitral valve: The mitral valve is normal. There is no mitral stenosis. There is no mitral regurgitation. Aortic valve: The aortic valve is not well seen, but probably normal. There is with a valve area of 3.05 cardio tech (Peak grad=7mmH g, Mean grad=3mmHg, LVOT serafin=1.90cm, LVOT TVI=23.0cm, Ao TVI=21.4cm). The dimensionless index is 1.07. AV peak ksnlmlun=556sk/sec. Tricuspid valve: The tricuspid valve is normal. There is no tricuspid regurgitation, so PA pressure cannot be estimated. Pulmonic valve: The pulmonic valve is normal. Pericardium: The pericardium is normal. Pulmonary artery: The pulmonary artery is normal. Interatrial septum: The interatrial septum is normal. Aorta: The aorta is normal. The aortic root is normal. Aortic dimensions - Ao M-mode= 3.40cm, Ascending=2.90cm. Vena Cava: The inferior vena cava is normal. MEASUREMENTS Left Ventricle IVSd: 0.91cm (0.6-1.1cm) PWd: 0.97cm (0.6-1.1cm) Mass Ina: 205g LVIDd: 5.63cm (3.7-5.6 cm) LVIDs: 5.12cm (1.8-4.2 cm) RWT: 0.34 (<0.42) E to A: 0.66 (0.6-2) E-e prime med: 8.80 E-e prime lat: 4.40 Decel: 312.00ms (168-232ms) Right Ventricle Mid RV Serafin: 2.4cm (2.7-3.3cm) Max Valve Velocities AV peak becka: 131cm/sec LVOT: 126.00cm/sec Legally authenticated by LEXA Obrien 2023-09-13 11:44:18 Atria LA AP: 2.8cm LA vol: 35.7mL Gallo Nieto MD Dictated By: GALLO NIETO Transcribed By: Transcribed On: 09/13/2023 11:44 AM Electronically signed by: GALLO NIETO 09/13/2023 Thank you for referring FRANSISCA GIBBS to [facility]. Legally authenticated by LEXA Obrien 2023-09-13 11:44:18 Gallo Nieto MD CV ECHO PROCEDURES Final Resu lt documented in this encounter Visit Diagnoses Not on filedocumented in this encounter Additional Health Concerns Assessment Noted Time A fall risk assessment has been complete d for the patient 10/20/2022 2:02 PM EDT documented as of this encounter Care Teams Clinical Resource Coordinator Relationship Specialty Start Date End Date Ophelia Riley MD [address] [place] [phone] PCP - General Family Medicine 11/24/21 Celia Avery, RN [facility] - 6 [facility] Registered Nurse Cardiology 10/10/23 documented as of this encounter
--- OUTSIDE RECORDS SUMMARY | 2024-12-30 12:51 | XMS_ITS | Clinical Summary ---
Author Organization [facility] yste Address [address] [place] [address] Care Team Providers Care Digital Forensic Analyst Name Role Phone Ophelia Riley MD Primary Care Provider [phone] Social History Tobacco Use Types Packs/Day Years [...] VACCINE 01/28/2025 06/27/2019 Insurance [employer] Care Teams Digital Forensic Analyst Relationship Specialty Start Date End Date Ophelia Riley MD [address] [place] [address] PCP - General Family Medicine 01/20/22
--- OUTSIDE RECORDS SUMMARY | 2024-12-30 12:51 | XMS_ITS | Encounter Summary ---
Author Organization [facility] Address [address] [place] [address] Care Team Providers Care Nursing Center Tutor Name Role Phone Ophelia Riley MD Primary Care Provider [phone] Celia Avery RN Unavailable Unavailable Encounter Details Date Type Department Care Team (Latest Contact Info) Description 11/19/2024 Travel Social History Tobacco Use Types Packs/Day Years Used Date Smoking Tobacco: Never Smokeless Tobacco: Never Humiliation, Afraid, Rape, and Kick questionnair e [...] place to sleep or slept in a half-way (including now)? No 02/14/2024 PHQ-9 Answer Date [...] PM EST Appointment Cardiac Imaging [address] [place] [address] 04/06/2025 4:00 PM EST Office Visit [facility] [place] [facility] [address] [facility] [place] [address] Janice Benitez MD [address] [place] [address] documented as of this encounter Visit Diagnoses Not on filedocumented in this encounter Additional Health Concerns Assessment Noted Time A fall risk assessment has been complete d for the patient 11/26/2023 8:09 AM EDT A Body Mass Index follow-up plan has been documented for the patient 06/24/2024 4:44 PM EST documented as of this encounter Care Teams Nursing Center Tutor Relationship Specialty Start Date End Date Ophelia Riley MD [address] [place] [address] PCP - General Family Medicine 11/24/21 Celia Avery, RN [facility] - 6 [facility] Registered Nurse Cardiology 10/10/23 documented as of this encounter
--- OUTSIDE RECORDS SUMMARY | 2024-12-30 12:51 | XMS_ITS | Encounter Summary ---
Author Organization Healthcare Address [address] [place] [address] Care Team Providers Care Clothespin Drier Operator Name Role Phone Ophelia Riley MD Primary Care Provider [phone] Celia Avery RN Unavailable Unavailable Encounter Details Date Type Department Care Team (Late st Contact Info) Description 02/06/2022 Outside Procedure External Location [address] [place] [address] Ophelia Riley MD [address] [place] [address] Social History Tobacco Use Types Packs/Day [...] PM EST Appointment Cardiac Imaging [address] [place] [address] 04/06/2025 4:00 PM EST Office Visit [facility] [place] [facility] [address] [place] [address] Janice Bneitez MD [address] [place] [address] documented as of this encounter Procedures Procedure Name Priority Date/Time Associated Diagnosis Comments MR HEAD W AND WO IV CONTRAST 02/06/2022 1:32 PM EDT documented in this encounter Results * MR Head w and wo IV Contrast (02/06/2022 1:32 PM EDT) Anatomical Region Laterality Modality Head Magnetic Resonan ce 02/06/2022 1:32 PM EDT Narrative 02/07/2022 6:43 AM EDT [address] [place] [address] Name: FRANSISCA MITCHELL Exam Date: 02/06/2022 : 1970 Age 51 Gender: M Physician: Ophelia Riley Facility: [facility] Facility HSV: Outpatient Exam: MRI BRAIN W/W/O FINAL REPORT CLINICAL HISTORY: Dizziness, lightheadedness, and neck pain x 1 month 14 mL multihance given FINDINGS: Multiplanar MR imaging of the brain was performed without and with contrast. There is no evidence of intracranial hemorrhage or mass. No abnormal extra-axial fluid collection is seen. The ventricular size is within normal limits. There is no evidence of shift of the midline structures. The posterior fossa and brainstem have an unremarkable appearance. No area of abnormal restricted diffusion is identified. No abnormal contrast enhancement is seen. Normal major vessel vascular flow voids are noted. IMPRESSION: No acute intracranial abnormality identified. Reviewed, Interpreted and Dictated by Harish Snow III, MD Transcribed by Kourtney Norwood Authenticated and EASTERN Dictated By: HARISH SNOW Transcribed By: Transcribed On: 02/06/2022 4:06 PM Electronically signed by: HARISH SNOW 02/06/2022 Thank you for referring FRANSISCA MITCHELL to [facility]. Legally authenticated by JASPER Sotomayor III 2022-02-06 16:06:33 Procedure Note Provider, Syd [place] - 02/07/2022 [facility] [address] [place] [address] Name: FRANSISCA MITCHELL Exam Date: 02/06/2022 : 1970 Age 51 Gender: M Physician: Ophelia Riley Facility: [facility] Facility HSV: Outpatient Exam: MRI BRAIN W/W/O FINAL REPORT CLINICAL HISTORY: Dizziness, lightheadedness, and neck pain x 1 month 14 mL multihance given FINDINGS: Multiplanar MR imaging of the brain was performed without and with contrast. There is no evidence of intracranial hemorrhage or mass. No abnormal extra-axial fluid collection is seen. The ventricular size is within normal limits. There is no evidence of shift of the midline structures. The posterior fossa and brainstem have an unremarkable appearance. No area of abnormal restricted diffusion is identified. No abnormal contrast enhancement is seen. Normal major vessel vascular flow voids are noted. IMPRESSION: No acute intracranial abnormality identified. Reviewed, Interpreted and Dictated by Harish Snow III, MD Transcribed by Kourtney Norwood Authenticated and EASTERN Dictated By: HARISH SNOW Transcribed By: Transcribed On: 02/06/2022 4:06 PM Electronically signed by: HARISH SNOW 02/06/2022 Thank you for referring FRANSISCA MITCHELL to [facility]. Legally authenticated by JASPER Sotomayor III 2022-02-06 16:06:33 us Ophelia Riley MD IMG MRI PROCEDURES Final Resu lt documented in this encounter Visit Diagnoses Not on filedocumented in this encounter Additional Health Concerns Assessment Noted Time A fall risk assessment has been complete d for the patient 06/10/2021 3:09 PM EST documented as of this encounter Care Teams Clothespin Drier Operator Relationship Specialty Start Date End Date Ophelia Riley MD [address] [place] [address] PCP - General Family Medicine 11/24/21 Celia Avery, RN [facility] - 6 [facility] Registered Nurse Cardiology 10/10/23 documented as of this encounter
--- OUTSIDE RECORDS SUMMARY | 2024-12-30 12:51 | XMS_ITS | Clinical Summary ---
Author Organization [facility] Address [address] [place] [address] Care Team Providers Care Show Card Writer Name Role Phone Ophelia Riley MD Primary Care Provider [phone] Celia Avery RN Unavailable Unavailable Allergies No known active allergies Medications metoprolol succinate XL (Toprol-XL) 25 MG 24 hr tablet Take 1 tablet (25 mg) by mouth daily. 10/05/19 24 Active cyclobenzaprine (Flexeril) 10 MG tabletIndications:N sanaz pain, musculoskeletal Take 1 tablet (10 mg) by mouth at night if needed for muscle spasms. 30 tablet 11 02/15/20 24 Active cetirizine (ZyrTEC) 10 MG tabletIndications:S easonal allergic rhinitis, unspecified trigger Take 1 tablet (10 mg) by mouth 1 (one) time each day. 90 tablet 3 02/15/20 24 Active atorvastatin (Lipitor) 10 MG tabletIndications:M ixed hyperlipidemia Take 1 tablet (10 mg) by mouth every night. 90 tablet 1 02/15/20 24 Active chlorhexidine (Hibiclens) 4 % external solution Apply to entire chest area with damp cloth after showering 5 days prior to procedure. Allow to air dry. Do not wash off until the next days shower. 236 mL 05/09/19 25 Active Additional Information Patient not taking.Reported on 11/20/2024 lansoprazole (Prevacid) [address] capsule Take 1 capsule (30 mg) by mouth 1 (one) time each day before breakfast. Do not crush or chew. 90 capsule 2 05/23/19 Active sacubitril-valsarta n (Entresto) 24-26 MG tabletIndications:C ardiomyopathy, unspecified type (CMS/HCC) Take 1 tablet by mouth 2 times a day. Patient may take 1/2 pill twice a day at first 60 tablet 11 11/21/19 Active Active Problems Problem Noted Date Diagnosed Date Biventricular ICD (implantab le cardioverter-defibrillator) in place 11/20/2024 Cardiac left ventricular ejection fraction 30-35 percent 05/09/2024 LBBB (left bundle branch block) 05/09/2024 Neurological deficit, transient 01/13/2022 Tremor of left hand 06/10/2021 Neck pain, musculoskeletal 12/26/2019 Allergic rhinitis 06/27/2019 Cardiomyopathy 05/30/2019 Mixed hyperlipidemia 10/25/2018 Deaf mutism, congenital 10/11/2018 GERD without esophagitis 10/11/2018 Encounters Date Type Department Care Team Description 12/22/2024 8:25 AM EDT - 12/22/2024 11:59 PM EDT Hospital Encounter Cardiac Imaging [address] [place] [address] ICD (implantable cardioverter-defibr illator) in place Discharge Disposition: Home or Self Care 12/22/2024 Travel 11/20/2024 2:00 PM EDT Office Visit [facility] [address] [place] [address] Janice Benitez MD LBBB (left bundle branch block) (Primary Dx); Cardiomyopathy, unspecified type (CMS/HCC); Biventricular ICD (implantable cardioverter-defibr illator) in place 11/20/2024 Travel 11/19/2024 Travel from Last 3 Months Immunizations Immunization Administration Dates Next Due Influenza, injectable, quadrivalent, preservativ e free 06/27/2019 Syrinix COVID-19 Vaccine (Purple Cap) 12 + 11/30/2020 Zoster, Recombinant 01/13/2022 Family History Medical History Relation Name Comments Heart Problem Father Relation Name Status Comments Father Social History Tobacco Use Types Packs/Day Years Used Date Smoking Tobacco: Never Smokeless Tobacco: Never Tobacco Cessation:Counseling Given: Not Answered Alcohol Use Standard Drinks/Week Comments Never 0 [...] place to sleep or slept in a senior care (including now)? No 02/14/2024 PHQ-9 Answer Date [...] on file Sexual Orientation Not on file Last Filed Vital Signs Vital Sign Reading Time Taken Comments Blood Pressure 124/81 11/20/2024 1:53 PM EDT Pulse 64 11/20/2024 1:53 PM EDT Temperature 36.8 C (98.3 F) 06/24/2024 2:54 PM EST Respiratory Rate 16 06/24/2024 5:00 PM EST Oxygen Saturation 95% 11/20/2024 1:53 PM EDT Inhaled Oxygen Concentration - - Weight 73.6 kg (162 lb 4.1 oz) 11/20/2024 1:53 P M EDT Height 170.2 cm (5' 7 ) 11/20/2024 1:53 PM EDT Body Mass Index 25.41 11/20/2024 1:53 PM EDT Plan of Treatment Upcoming Encounters Date Type Department Care Team (Late st Contact Info) Description 04/06/2025 2:30 PM EST Appointment Cardiac Imaging [address] [place] [phone] 04/06/2025 4:00 PM EST Office Visit [facility] [place] [address] [place] [address] Janice Benitez MD [address] [place] [address] Health Maintenance Due Date Last Done Comments [facility]-HIV Screening 1970 [facility]-Hepatitis C Screening 1970 [facility]-Infant/Child/Adol SDOH Screenings 1970 [facility]-DTaP,Tdap,and Td Vaccines (1 - Tdap) 1989 [facility]-Hepatitis B Vaccines (1 of 3 - 19+ 3-dose series) 1989 CT Colonography 2015 Colonoscopy 2015 FIT 2015 FOBT 2015 Sigmoidoscopy 2015 [facility]-Pneumococcal Vaccine: 50+ Years (1 of 1 - PCV) 02/13/2020 [facility]-Zoster Vaccines (2 of 2) 03/10/2022 01/13/2022 [facility]- SDOH Screenings 08/14/2024 [facility]-Adult SDOH Screenings 08/14/2024 02/14/2024 [id number] Vaccine ( season) 2024 09/03/2021, 12/21/2020, 11/30/2020 [facility]-Influenza Vaccine (#1) 2024 06/27/2019 [facility]-Depression Screening 11/20/2025 11/20/2024, 10/29 FIT-DNA 02/27/2027 02/28/2024 [facility]-Colorectal Cancer Screening 02/27/2027 [facility]-Obesity Intervention Completed 025, 05/09/2024, 02/15/2024, Additional history exists HPV Vaccines Aged Out No longer eligi ble based on patient's age to complete this topic [facility]-HIB Vaccines Aged Out No longer e ligible based on patient's age to complete this topic [facility]-Hepatitis A Vaccines Aged Out No longer eligible based on patient's age to complete this topic [facility]-IPV Vaccines Aged Out No longer e ligible based on patient's age to complete this topic [facility]-Rotavirus Vaccines Aged Out No lo nger eligible based on patient's age to complete this topic Medical Devices Implanted Type Area Volleyball Coach Device Identifier Shelf Expiration Date Model / Serial / Lot Lead Sprint Quattro Secure S Tachy 62 - [id number] Implanted:Qty: 1 on 06/24/2024 by Janice Benitez MD at [facility] [employer]-[id number] 02/25/2026 [id number] / [id number] / [id number] Lead 5076 Lead Bi Lesley 52 - [id number] Implanted:Qty: 1 on 06/24/2024 by Janice Benitez MD at [facility] [employer]-[id number] 04/21/2026 [id number] / [id number] / [id number] Lead Attain Stability [id number] - [id number] Implanted:Qty: 1 on 06/24/2024 by Janice Benitez MD at [facility] [employer]-[id number] 05/06/2026 [id number] / [id number] / [id number] Procedures Procedure Name Priority Date/Time Associated Diagnosis Comments CARDIAC DEVICE CHECK - REMOTE - ICD Routine 12/22/2024 8:43 AM EDT ICD (implantable cardioverter-defibr illator) in place LAB COLOGUARD COLON CANCER SCREEN Routine 02/28/2024 6:57 PM EDT Screening for colon cancer from Last 3 Months or Most Recently Relevant to Health Maintenance Results * CARDIAC DEVICE CHECK - REMOTE [...] IMPLANTABLE CARDIAC DEV ICE PROCEDURES Final Result * Cologuard?? colon cancer screening (02/28/2024 6:57 PM EDT) Cologuard Negative Negative 03/06/2024 7:03 PM EST [facility] (CLIA #:[id number]) Comment: NEGATIVE TEST RESULT. A negative Cologuard result indicates a low likelihood that a colorectal cancer (CRC) or advanced adenoma (adenomatous polyps with more advanced pre-malignant features) is present. The chance that a person with a negative Cologuard test has a colorectal cancer is less than 1 in 1500 (negative predictive value >99.9%) or has an advanced adenoma is less than 5.3% (negative predictive value 94.7%). These data are based on a prospective cross-sectional study of 10,000 individuals at average risk for colorectal cancer who were screened with both Cologuard and colonoscopy. (Kelsea Villafana al, N Engl J Med 2014;370(14):7492-9377) The normal value (reference range) for this assay is negative. COLOGUARD RE-SCREENING RECOMMENDATION: Periodic colorectal cancer screening is an important part of preventive healthcare for asymptomatic individuals at average risk for colorectal cancer. Following a negative Cologuard result, the [place] Cancer Society and U.S. Multi-Society Task Force screening guidelines recommend a Cologuard re-screening interval of 3 years. References: [place] Cancer Society Guideline for Colorectal Cancer Screening: https://www.cancer.org/cancer/kddou-lkwyzw-lwwoco/ligmdwytt-paypkezeo-aitxwnj/ac s-rec ommendations.html.; Reji DK, Roberto SAGASTUME, Agueda McmahonK, Colorectal Cancer Screening: Recommendations for Physicians and Patients from the U.S. Multi-Society Task Force on Colorectal Cancer Screening , Am J Gastroenterology 2017; 112:7046-4097. TEST DESCRIPTION: Composite algorithmic analysis of stool DNA-biomarkers with hemoglobin immunoassay. Quantitative values of individual biomarkers are not reportable and are not associated with individual biomarker result reference ranges. Cologuard is intended for colorectal cancer screening of adults of either sex, 45 years or older, who are at average-risk for colorectal cancer (CRC). Cologuard has been approved for use by the U.S. FDA. The performance of Cologuard was established in a cross sectional study of average-risk adults aged 50-84. Cologuard performance in patients ages 45 to 49 years was estimated by sub-group analysis of near-age groups. Colonoscopies performed for a positive result may find as the most clinically significant lesion: colorectal cancer [4.0%], advanced adenoma (including sessile serrated polyps greater than or equal to 1cm diameter) [20%] or non- advanced adenoma [31%]; or no colorectal neoplasia [45%]. These estimates are derived from a prospective cross-sectional screening study of 10,000 individuals at average risk for colorectal cancer who were screened with both Cologuard and colonoscopy. (Kelsea Villafana al, N Engl J Med 2014;370(14):2263-5715.) Cologuard may produce a false negative or false positive result (no colorectal cancer or precancerous polyp present at colonoscopy follow up). A negative Cologuard test result does not guarantee the absence of CRC or advanced adenoma (pre-cancer). The current Cologuard screening interval is every 3 years. ([place] Cancer Society and U.S. Multi-Society Task Force). Cologuard performance data in a 10,000 patient pivotal study using colonoscopy as the reference method can be accessed at the following location: www.Famigo/results. Additional description of the Cologuard test process, warnings and precautions can be found at www.EpiVaxogTHEVArd.Global Silicon. Stool specimen (specimen) 02/28/2024 6:57 PM EDT 03/01/2024 7:21 AM EDT Ophelia Riley MD LAB MOLECULAR DIAGNOSTICS ORD ERABLES Final Result [facility] (CLIA #:[id number]) [address] [place] [address], from Last 3 Months or Most Recently Relevant to Health Maintenance Insurance [address] [place] [id number] RAHAT Advance Directives * Full Code (Latest Code Status on File) Date Activated Date Inactivated Comments 06/24/2024 2:44 PM 06/24/2024 7:46 PM Question Answer Comments Patient has decision-making capacity? Yes Care Teams Show Card Writer Relationship Specialty Start Date End Date Ophelia Riley MD [address] [place] [address] PCP - General Family Medicine 11/24/21 Celia Avery, RN [facility] - [facility] Registered Nurse Cardiology 10/10/23
--- OUTSIDE RECORDS SUMMARY | 2024-12-30 12:51 | XMS_ITS | Encounter Summary ---
Author Organization Healthcare Address [address] [place] [address] Care Team Providers Care Bathroom Tiling Professional Name Role Phone Jorge L Arauz MD Primary Care Provider [phone] Lennox Gloria MD Primary Care Provider Ophelia Riley MD Primary Care Provider [phone] Celia Avery RN Unavailable Unavailable Encounter Details Date Type Department Care Team (Late st Contact Info) Description 06/17/2021 Outside Procedure External Location [address] [place] [phone] Provider, [place] Social History Tobacco Use Types Packs/Day Years Used Date Smoking Tobacco: Never Smokeless Tobacco: Never PHQ-2 Answer Date Recorded Patient Health Questionnaire-2 Score 0 12/03/2020 Sex and Gender Information Value Date Recorded Sex Assigned at Not on file Legal Sex Male 7:46 PM EDT Gender Identity Not on file Sexual Orientation Not on file COVID-19 Exposure Response Date Recorded In the last month, have you been in contact with someone who was confirmed or suspected to have Coronavirus / COVID-19? No / Unsure 06/17/2021 8:51 AM EST documented as of this encounter Plan of Treatment Upcoming Encounters Date Type Department Care Team (Late st Contact Info) Description 04/06/2025 2:30 PM EST Appointment Cardiac Imaging [address] [place] [address] 04/06/2025 4:00 PM EST Office Visit [facility] [address] [place] [address] Janice Benitez MD [address] [place] [address] documented as of this encounter Procedures Procedure Name Priority Date/Time Associated Diagnosis Comments ECHO, ADULT TRANSTHORACIC COMPLETE W/ COLOR AND DOPPLER 06/17/2021 11:34 AM EST documented in this encounter Results * Echo, Adult Transthoracic Complete w/ Color and Doppler (06/17/2021 11:34 AM EST) Anatomical Region Laterality Modality Ultrasound 06/17/2021 11:3 4 AM EST Narrative 06/19/2021 8:17 AM EST [address] [address] Name: FRANSISCA MITCHELL Exam Date: 06/17/2021 : 1970 Age 51 Gender: M Physician: GALLO NIETO Facility: [facility] Facility HSV: Outpatient Exam: ECHO W SPEC COLOR FLOW Reason for Study: dyspnea SUMMARY Normal LV size with mildly decreased function. The ejection fraction is 40-45%.There is hypokinesis of the anterior wall. Septal bounce related to bundle branch block. Normal diastolic function. INTERPRETATION DETAIL Fair quality study. Left ventricle: The left ventricle is normal in size with mildly decreased systolic function. The ejection fraction is 40-45%. There is normal LV wall thickness. There is hypokinesis of the anterior wall. Septal bounce related to bundle branch block. The remainder of the left ventricle functions normally. Mitral filling indicates Normal diastolic function. Left atrium: The left atrium is normal. LA volume: 25.2mL, LA volume index: 13.8mL/mA . Right ventricle: The right ventricle is normal in size with normal function. Right atrium: The right atrium is normal. Mitral valve: The mitral valve is normal. There is no mitral stenosis. There is no mitral regurgitation. Aortic valve: The aortic valve is normal and trileaflet. There is no aortic stenosis. AV peak lncdcsse=353vs/sec. There is no aortic regurgitation. Tricuspid valve: The tricuspid valve is normal. There is trace tricuspid regurgitation. Pulmonic valve: The pulmonic valve is normal. There is physiologic pulmonic regurgitation. Pericardium: The pericardium is normal. Interatrial septum: The interatrial septum is normal. Aorta: The aortic root is normal. Aortic dimensions - Ao M-mode= 3.10cm, Ascending=2.50cm. Vena Cava: The inferior vena cava is normal. MEASUREMENTS Left Ventricle IVSd: 0.88cm (0.6-1.1cm) PWd: 0.88cm (0.6-1.1cm) Mass Ina: 200g LVMI: 110g/mA (>50-95g/m) LVIDd: 5.83cm (3.7-5.6 cm) LVIDdI: 3.20cm/m2 LVIDs: 4.31cm (1.8-4.2 cm) LVIDsI: 2.37cm/m2 RWT: 0.30 ( E to A: 1.12 (0.6-2) E-e prime med: 11.00 E-e prime lat: 4.40 Decel: 232.00ms (168-232ms) Right Ventricle Mid RV Tita: 2.9cm (2.7-3.3cm) Max Valve Velocities AV peak becka: 160cm/sec Legally authenticated by LEXA Obrien 2021-06-19 06:38:54 LVOT: 111.00cm/sec [facility] LA AP: 3.0cm LA vol: 25.2mL VERITO: 13.8mL/mA (16-28ml/m2) Gallo Nieto MD Dictated By: GALLO NIETO Transcribed By: Transcribed On: 06/19/2021 6:38 AM Electronically signed by: GALLO NIETO 06/19/2021 Thank you for referring FRANSISCA MITCEHLL to [facility]. Legally authenticated by LEXA Obrien 2021-06-19 06:38:54 Procedure Note Provider, Generic [place] - 06/19/[address] [address] Name: FRANSISCA MITCHELL Exam Date: 06/17/2021 : 1970 Age 51 Gender: M Physician: GALLO NIETO Facility: [facility] Facility HSV: Outpatient Exam: ECHO W SPEC COLOR FLOW Reason for Study: dyspnea SUMMARY Normal LV size with mildly decreased function. The ejection fraction is 40-45%.There is hypokinesis of the anterior wall. Septal bounce related to bundle branch block. Normal diastolic function. INTERPRETATION DETAIL Fair quality study. Left ventricle: The left ventricle is normal in size with mildly decreased systolic function. The ejection fraction is 40-45%. There is normal LV wall thickness. There is hypokinesis of the anterior wall. Septal bounce related to bundle branch block. The remainder of the left ventricle functions normally. Mitral filling indicates Normal diastolic function. Left atrium: The left atrium is normal. LA volume: 25.2mL, LA volume index: 13.8mL/mA . Right ventricle: The right ventricle is normal in size with normal function. Right atrium: The right atrium is normal. Mitral valve: The mitral valve is normal. There is no mitral stenosis. There is no mitral regurgitation. Aortic valve: The aortic valve is normal and trileaflet. There is no aortic stenosis. AV peak yjbctxcg=221ej/sec. There is no aortic regurgitation. Tricuspid valve: The tricuspid valve is normal. There is trace tricuspid regurgitation. Pulmonic valve: The pulmonic valve is normal. There is physiologic pulmonic regurgitation. Pericardium: The pericardium is normal. Interatrial septum: The interatrial septum is normal. Aorta: The aortic root is normal. Aortic dimensions - Ao M-mode= 3.10cm, Ascending=2.50cm. Vena Cava: The inferior vena cava is normal. MEASUREMENTS Left Ventricle IVSd: 0.88cm (0.6-1.1cm) PWd: 0.88cm (0.6-1.1cm) Mass Ina: 200g LVMI: 110g/mA (>50-95g/m) LVIDd: 5.83cm (3.7-5.6 cm) LVIDdI: 3.20cm/m2 LVIDs: 4.31cm (1.8-4.2 cm) LVIDsI: 2.37cm/m2 RWT: 0.30 ( E to A: 1.12 (0.6-2) E-e prime med: 11.00 E-e prime lat: 4.40 Decel: 232.00ms (168-232ms) Right Ventricle Mid RV Tita: 2.9cm (2.7-3.3cm) Max Valve Velocities AV peak becka: 160cm/sec Legally authenticated by LEXA Obrien 2021-06-19 06:38:54 LVOT: 111.00cm/sec [facility]ria LA AP: 3.0cm LA vol: 25.2mL VERITO: 13.8mL/mA (16-28ml/m2) Gallo Nieto MD Dictated By: GALLO NIETO Transcribed By: Transcribed On: 06/19/2021 6:38 AM Electronically signed by: GALLO NIETO 06/19/2021 Thank you for referring FRANSISCA MITCHELL to [facility]. Legally authenticated by LEXA Obrien 2021-06-19 06:38:54 Generic [place] Provider CV ECHO PROCEDURES F inal Result documented in this encounter Visit Diagnoses Not on filedocumented in this encounter Additional Health Concerns Assessment Noted Time A fall risk assessment has been complete d for the patient 06/10/2021 3:09 PM EST documented as of this encounter Care Teams Bathroom Tiling Professional Relationship Specialty Start Date End Date Jorge L Arauz MD [address] [place] [phone] PCP - General 09/10/20 10/16/21 [place] [address] [place] [phone] PCP - General Family Medicine 10/17/21 11/23/21 Ophelia Riley MD [address] [place] [phone] PCP - General Family Medicine 11/24/21 Celia Avery, RN [facility] - [facility] Registered Nurse Cardiology 10/10/23 documented as of this encounter
--- OUTSIDE RECORDS SUMMARY | 2024-12-30 12:51 | XMS_ITS | Encounter Summary ---
Author Organization [facility] Address [address] [place] [address] Care Team Providers Care Manager Of Compliance Name Role Phone Ophelia Riley MD Primary Care Provider [phone] Celia Avery RN Unavailable Unavailable Reason for Visit * Reason Comments Med Change Request Encounter Details Date Type Department Care Team (Late st Contact Info) Description 11/28/2022 Refill [facility] [address] [place] [address] Ophelia Riley MD [address] [place] [address] GERD without esophagitis Social History Tobacco Use Types Packs/Day Years [...] on file documented as of this encounter Miscellaneous Notes * Telephone Encounter - Abbie Guajardo - 11/30/2022 8:28 AM EDT Unable to reach pt, [employer] message sent. * Telephone Encounter - Jeanette Kiran - 11/29/2022 4:54 PM EDT Attempted to call no answer documented in this encounter Plan of Treatment Upcoming Encounters Date Type Department Care Team (Late st Contact Info) Description 04/06/2025 2:30 PM EST Appointment Cardiac Imaging [address] [place] [address] 04/06/2025 4:00 PM EST Office Visit [facility] [place] [address] [place] [address] Janice Benitez MD [address] [place] [address] documented as of this encounter Visit Diagnoses Diagnosis GERD without esophagitis Esophageal reflux documented in this encounter Additional Health Concerns Assessment Noted Time A fall risk assessment has been complete d for the patient 10/20/2022 2:02 PM EDT documented as of this encounter Care Teams Manager Of Compliance Relationship Specialty Start Date End Date Ophelia Riley MD [address] [place] [address] PCP - General Family Medicine 11/24/21 Celia Avery RN [facility] - 6 [facility] Registered Nurse Cardiology 10/10/23 documented as of this encounter
[2024-12-30] MEDS: 0.9 % SODIUM CHLORIDE 500 ML 25 ML IV (13:44)
[2024-12-30] MEDS: NITROGLYCERIN 800MCG/8ML SYR (CATH LAB) 800 MCG IA (13:44)
[2024-12-30] MEDS: HEPARIN 1,000 UNITS/500ML NS (CATH LAB) 3000 UNIT IV (13:45)
[2024-12-30] MEDS: LIDOCAINE 1% 10ML MDV 10 ML IJ (13:45)
[2024-12-30] MEDS: VERAPAMIL 2.5MG/ML 2ML VIAL 2.5 MG IV (13:45)
[2024-12-30] MEDS: HEPARIN 1,000 UNITS/ML 10ML VIAL (CATH LAB) 5000 UNIT IV ×2 (13:45→13:59)
[2024-12-30] MEDS: PRASUGREL 10MG TAB 60 MG PO (14:21)
[2024-12-30] MEDS: FENTANYL 100MCG/2ML VIAL 50 MCG IV (14:22)
[2024-12-30] MEDS: MIDAZOLAM HCL 1MG/ML 5ML VIAL 1 MG IV (14:22)
[2024-12-30] MEDS: IOPAMIDOL-370 (76%);100ML BOTTLE 120 ML IV (14:31)
[2024-12-30 14:33] LABS: CATHL Activated Clotting Time 392 SEC (74-125)
--- NOTE | 2024-12-30 15:31 | EXP.DC.SUM ---
General Admission date:: 12/30/24 Discharge date: 12/30/24 HPI HPI HPI: Howard Mitchell is a 54-year-old male with medical history significant for complete hearing loss, HFrEF 30% with AICD, hypertension, hyperlipidemia, GERD sudden onset chest pain around 10:30 PM last night. He states it was predominantly in the lower sternal area, describing it as very tight and squeezing pain with radiation down left arm. He states he has had chest pain like this before but never this severe. He reports he follows with Dr. Gallo Nieto in [place] for his HFrEF 30%, but states he has never had any coronary stenting and is a non-smoker. On arrival, vital signs were stable but patient continued to have chest pain. He was given nitro x 2, morphine with eventual relief of chest pain. He was also given aspirin 324 mg. Workup in the ED significant for initial normal troponin and EKG with nonspecific ST changes but without STEMI. CXR, CTA chest unremarkable. Dr. Ruffin was consulted by the ED provider who recommended admission for workup and monitoring. Given these findings, ED provider discussed case with me and I decided to admit patient for further evaluation of chest pain. On my evaluation, patient was resting in bed comfortably without acute distress. Second troponin resulted to 1.13. Heparin drip was started. Hospital Course Hospital Course Hospital Course: Howard Mitchell is a 54-year-old male with medical history significant for complete hearing loss, HFrEF 30% with AICD, hypertension, hyperlipidemia, GERD sudden onset chest pain around 10:30 PM last night. He states it was predominantly in the lower sternal area, describing it as very tight and squeezing pain with radiation down left arm. He states he has had chest pain like this before but never this severe. He reports he follows with Dr. Gallo Nieto in [place] for his HFrEF 30%, but states he has never had any coronary stenting and is a non-smoker. On arrival, vital signs were stable but patient continued to have chest pain. He was given nitro x 2, morphine with eventual relief of chest pain. He was also given aspirin 324 mg. Workup in the ED significant for initial normal troponin and EKG with nonspecific ST changes but without STEMI. CXR, CTA chest unremarkable. Dr. Ruffin was consulted by the ED provider who recommended admission for workup and monitoring. Given these findings, ED provider discussed case with me and I decided to admit patient for further evaluation of chest pain. On my evaluation, patient was resting in bed comfortably without acute distress. Second troponin resulted to 1.13. Heparin drip was started. #NSTEMI type I #History of LV dysfunction Hypertension ? Presented with acute onset lower sternal chest pain with radiation to left arm. Troponins uptrended during admission to 2.1. EKG with nonspecific ST changes. No acute STEMI. Cardiology consulted, Follows with [place] cardiology Dr. Gallo Nieto, apparently has a LVEF of 30% with presumed AICD. Pending medical records. Given his jump in troponin, was taken for left heart cath. Started heparin drip on admission. Initiated on aspirin 81 mg daily and metoprolol succinate 25 mg daily along with Lipitor 40 mg daily. - Pacemaker interrogation revealed normal function, 99% BiV paced. Left heart cath performed and found critical ostial proximal LAD disease with both 80 and 90% stenosis, stented successfully. Patient started on Effient and lsinopril 5 mg p.o. daily -Echo obtained with follows: Mildly reduced LV systolic function (LVEF 45%), Asynchronous septum. Mild RV dilation with normal RV function. Mild TR. - TSH normal at 1.5, LDL 96. #GERD: Continue home PPI. #Complete hearing loss: Continue supportive care. 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 Exam Data for Last 24 hours Vital signs and Labs for Last 24 Hours: Temp Pulse Resp BP Pulse Ox O2 Del Method 97.6 F 60 14 110/56 L 97 Room Air 12/30/24 14:50 12/30/24 14:50 12/30/24 14:50 12/30/24 14:50 12/30/24 14:50 12/30/24 15:00 Laboratory Results - last 24 hr 12/29/24 23:19: WBC 11.0 H, RBC 4.66, Hgb 14.9, Hct 42.6, MCV 91.4, MCH 32.0 H, MCHC 35.0, RDW 11.9, Plt Count 286, MPV 9.2, Neut % (Auto) 37.9, Lymph % (Auto) 48.8, [place] % (Auto) 8.8, Eos % (Auto) 3.0, Baso % (Auto) 1.3, Neut # (Auto) 4.2, Lymph # (Auto) 5.4 H, [place] # (Auto) 1.0, Eos # (Auto) 0.3, Baso # (Auto) 0.1, Total Counted 100, Neutrophils % (Manual) 30 L, Lymphocytes % (Manual) 51 H, Monocytes % (Manual) 13 H, Eosinophils % (Manual) 3, Basophils % (Manual) 3.0 H, Platelet Estimate Normal, RBC Morphology Normal, PT 10.9, INR 0.98, D-Dimer 0.90 H, Sodium 138, Potassium 3.3 L, Chloride 105, Carbon Dioxide 23, Anion Gap 13.3, BUN 14, Creatinine 0.90, Estimated GFR 88, Est GFR ( Amer) 106, Glucose 108 H, Calcium 9.6, Total Bilirubin 0.9, AST 44, ALT 41, Alkaline Phosphatase 68, Troponin I < 0.01, NT-Pro-B Natriuret Pep 23.7, Total Protein 8.0, Albumin 4.9, Globulin 3.1, Albumin/Globulin Ratio 1.6, HCV Ab KATHRYN w/Rflx PCR Qn Negative, HIV Ag/Ab Combo Qual Negative 12/30/24 02:38: Troponin I 1.13 H 12/30/24 03:26: APTT 26.5 L 12/30/24 05:44: WBC 9.5, RBC 4.12 L, Hgb 13.3 L D, Hct 38.6 L, MCV 93.7, MCH 31.6 H, MCHC 33.7, RDW 12.0, Plt Count 214 D, MPV 9.3, Neut % (Auto) 55.3, Lymph % (Auto) 35.3, [place] % (Auto) 5.8, Eos % (Auto) 2.6, Baso % (Auto) 0.8, Neut # (Auto) 5.2, Lymph # (Auto) 3.3, [place] # (Auto) 0.6, Eos # (Auto) 0.3, Baso # (Auto) 0.1, Sodium 136, Potassium 4.5 D, Chloride 105, Carbon Dioxide 28, Anion Gap 7.5, BUN 13, Creatinine 0.90, Estimated Creat Clear 121, Estimated GFR 88, Est GFR ( Amer) 106, Glucose 112 H, Hemoglobin A1c 5.9, Calcium 8.9, Magnesium 1.8, Total Bilirubin 0.9, AST 43, ALT 33, Alkaline Phosphatase 74, Troponin I 2.12 H, Total Protein 6.4, Albumin 3.8 D, Globulin 2.6, Albumin/Globulin Ratio 1.5, Triglycerides 99, Cholesterol 181, LDL Cholesterol Direct 96.82 L, VLDL Cholesterol 20, HDL Cholesterol 37 L, Cholesterol/HDL Ratio 4.9 H, TSH 1.55 12/30/24 09:58: APTT 53.1 12/30/24 13:53: Activated Clotting Time 392 H* I & O for Last 24 hours: Intake & Output 12/27/24 12/28/24 12/29/24 12/30/24 23:59 23:59 23:59 23:59 Intake Total 840 / 840 Output Total 0 / 0 Balance 840 / 840 Weight 72.575 kg 91.1 kg Constitutional Constitutional: no acute distress, obese and cooperative *Routine HEENT Exam Head: Present normocephalic Eye: Present EOMI and PERRL ENT: Present mucous membranes moist *Routine Neck Exam Neck: Present supple; Absent lymphadenopathy *Routine Respiratory Exam Respiratory: Present CTA bilaterally; Absent rhonchi, wheezes or crackles *Routine Cardiovascular Exam Cardiovascular: Present RRR *Routine Abdominal Exam Abdominal: Present soft and normoactive bowel sounds; Absent tenderness *Routine Rectal Exam Patient deferred: visual exam *Routine Exam Patient deferred: penile exam *Routine Extremities Exam Extremities: Absent cyanosis, clubbing or edema Comments: right wrist with insertion site CDI *Routine Skin Exam Skin: Present intact and warm; Absent rash *Routine Neurological Exam Neurological: Present alert, oriented X3 and moving all extremities; Absent altered mental status or hearing grossly intact (patient is deaf) Results Data Completed and Pending Labs on day of discharge: Labs from last 24 hours 12/30/24 12/30/24 12/30/24 13:53 09:58 05:44 WBC 9.5 RBC 4.12 L Hgb 13.3 L D Hct 38.6 L MCV 93.7 MCH 31.6 H MCHC 33.7 RDW 12.0 Plt Count 214 D MPV 9.3 Neut % (Auto) 55.3 Lymph % (Auto) 35.3 [place] % (Auto) 5.8 Eos % (Auto) 2.6 Baso % (Auto) 0.8 Neut # (Auto) 5.2 Lymph # (Auto) 3.3 [place] # (Auto) 0.6 Eos # (Auto) 0.3 Baso # (Auto) 0.1 Total Counted Neutrophils % (Manual) Lymphocytes % (Manual) Monocytes % (Manual) Eosinophils % (Manual) Basophils % (Manual) Platelet Estimate RBC Morphology PT INR APTT 53.1 Activated Clotting Time 392 H* D-Dimer Sodium 136 Potassium 4.5 D Chloride 105 Carbon Dioxide 28 Anion Gap 7.5 BUN 13 Creatinine 0.90 Estimated Creat Clear 121 Estimated GFR 88 Est GFR ( Amer) 106 Glucose 112 H Hemoglobin A1c 5.9 Calcium 8.9 Magnesium 1.8 Total Bilirubin 0.9 AST 43 ALT 33 Alkaline Phosphatase 74 Troponin I 2.12 H NT-Pro-B Natriuret Pep Total Protein 6.4 Albumin 3.8 D Globulin 2.6 Albumin/Globulin Ratio 1.5 Triglycerides 99 Cholesterol 181 LDL Cholesterol Direct 96.82 L VLDL Cholesterol 20 HDL Cholesterol 37 L Cholesterol/HDL Ratio 4.9 H TSH 1.55 HCV Ab KATHRYN w/Rflx PCR Qn HIV Ag/Ab Combo Qual 12/30/24 12/30/24 12/29/24 03:26 02:38 23:19 WBC 11.0 H RBC 4.66 Hgb 14.9 Hct 42.6 MCV 91.4 MCH 32.0 H MCHC 35.0 RDW 11.9 Plt Count 286 MPV 9.2 Neut % (Auto) 37.9 Lymph % (Auto) 48.8 [place] % (Auto) 8.8 Eos % (Auto) 3.0 Baso % (Auto) 1.3 Neut # (Auto) 4.2 Lymph # (Auto) 5.4 H [place] # (Auto) 1.0 Eos # (Auto) 0.3 Baso # (Auto) 0.1 Total Counted 100 Neutrophils % (Manual) 30 L Lymphocytes % (Manual) 51 H Monocytes % (Manual) 13 H Eosinophils % (Manual) 3 Basophils % (Manual) 3.0 H Platelet Estimate Normal RBC Morphology Normal PT 10.9 INR 0.98 APTT 26.5 L Activated Clotting Time D-Dimer 0.90 H Sodium 138 Potassium 3.3 L Chloride 105 Carbon Dioxide 23 Anion Gap 13.3 BUN 14 Creatinine 0.90 Estimated Creat Clear Estimated GFR 88 Est GFR ( Amer) 106 Glucose 108 H Hemoglobin A1c Calcium 9.6 Magnesium Total Bilirubin 0.9 AST 44 ALT 41 Alkaline Phosphatase 68 Troponin I 1.13 H < 0.01 NT-Pro-B Natriuret Pep 23.7 Total Protein 8.0 Albumin 4.9 Globulin 3.1 Albumin/Globulin Ratio 1.6 Triglycerides Cholesterol LDL Cholesterol Direct VLDL Cholesterol HDL Cholesterol Cholesterol/HDL Ratio TSH HCV Ab KATHRYN w/Rflx PCR Qn Negative HIV Ag/Ab Combo Qual Negative DS: Diagnosis Discharge Diagnosis (1) NSTEMI (non-ST elevated myocardial infarction): Status: Acute Code(s): I21.4 - Non-ST elevation (NSTEMI) myocardial infarction (2) LV dysfunction: Status: Acute Code(s): I51.9 - Heart disease, unspecified (3) History of pacemaker: Status: Acute Code(s): Z95.0 - Presence of cardiac pacemaker (4) CAD (coronary artery disease), [place] coronary artery: Status: Acute Code(s): I25.10 - Atherosclerotic heart disease of [place] coronary artery without angina pectoris Meds Home Medications and Allergies Home Medications ?Medication ?Instructions ?Recorded ?Confirmed ?Type aspirin 81 mg tablet,delayed 81 mg PO DAILY 30 days #30 tabs 12/30/24 Rx release atorvastatin 40 mg tablet 40 mg PO HS 30 days #30 tabs 12/30/24 Rx cetirizine 10 mg tablet 10 mg PO DAILY 12/30/24 12/30/24 History lansoprazole 30 mg capsule,delayed 30 mg PO DAILY 12/30/24 12/30/24 History release lisinopril 5 mg tablet 5 mg PO DAILY 12/30/24 12/30/24 History metoprolol succinate 25 mg 25 mg PO DAILY 12/30/24 12/30/24 History tablet,extended release 24 hr prasugrel HCl 10 mg tablet 10 mg PO DAILY 30 days #30 tabs 12/30/24 Rx New Prescriptions to Start Prescriptions: Howard Deng James prasugrel HCl Howard Alcantar Allergies Allergy/AdvReac Type Severity Reaction Status Date / Time No Known Allergies Allergy Verified 06/23/18 10:59 Discharge Plan Disposition Patient Disposition: Home, Self-Care Condition: Fair Discharge Order Discharge Orders: Discharge Order (Routine); Ordered 12/30/24 Ordered By: Howard Katharine Follow up Plan Follow up with: Mary Betts APRN [Nurse Practitioner, Cardiology] - 01/06/25 9:00 am Prescriptions/Medication Reconciliation: New atorvastatin 40 mg Tablet 40 mg PO HS 30 Days Qty: 30 0RF aspirin 81 mg Tablet,Delayed Release (Dr/Ec) 81 mg PO DAILY 30 Days Qty: 30 0RF prasugrel HCl 10 mg Tablet 10 mg PO DAILY 30 Days Qty: 30 0RF Continued cetirizine 10 mg tablet 10 mg PO DAILY Patient Comments: TAKE 1 TABLET BY MOUTH 1 TIME EACH DAY lansoprazole 30 mg capsule,delayed release(DR/EC) 30 mg PO DAILY Patient Comments: TAKE 1 CAPSULE (30 MG) BY MOUTH 1 (ONE) TIME EACH DAY BEFORE BREAKFAST. DO NOT CRUSH OR CHEW. lisinopril 5 mg tablet 5 mg PO DAILY Patient Comments: TAKE 1 TABLET BY MOUTH EVERY DAY metoprolol succinate 25 mg tablet extended release 24 hr 25 mg PO DAILY Patient Comments: TAKE 1 TABLET BY MOUTH EVERY DAY Discontinued atorvastatin 10 mg tablet 10 mg PO DAILY Patient Comments: TAKE 1 TABLET BY MOUTH EVERY DAY Other Ambulatory Orders: Basic Metabolic Panel (Routine) Timeframe: 20250106 Facility: [facility] - Location: Laboratory Ordered By: Omar Betts Complete Blood Count Auto Diff (Routine) Timeframe: 20250106 Facility: [facility] - Location: Laboratory Ordered By: Omar Betts Problem Reconciliation Problems Reviewed?: Yes Patient Discharge Instructions ACTIVITY: Continue current activity DIET: continue same diet Patient Instructions: DI for Chest Pain Print Language: Malay Providers Primary Care Provider: Provider,Referral Admit Provider: Jayme Ashford Attending Provider: Jayme Ashford
[2024-12-30] MEDS: HYDROCODONE/APAP 5/325 MG TABLET 1 TAB PO (18:05)
--- NOTE | 2024-12-30 18:40 | PC.NURSE ---
pt is A&Ox4. pt had left heart cath today and two stents were placed in the LAD. 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 Her name is Dawn Rivera. all air has been let out from the band and the band is off. a dressing is in place; telfa and tegaderm. no drainage noted. pt complained of some pain in wrist and pain was relieved with hydrocodone. pt discharge done and he had no questions. pt has no other needs at this time.
--- NOTE | 2024-12-31 10:31 | SW/DCPLANNER ---
Spoke with patient on the phone. Patient stated that she is doing good. Patient stated that she is aware of her upcoming appointment. Patient stated that she was able to get her new medicine picked up. Patient stated that she has no concerns or questions at this time. Ella Parr
== END 2024-12-30 18:49 | disposition home or self-care (01) | DRG 322 ==
LOC: ER 12-30 00:53 → 2ND 12-30 01:25
PROVIDERS: Internal Medicine; Admitting Provider Student in an Organized Health Care Education/Training Program; Emergency Provider Emergency Medicine; Visit Provider Student in an Organized Health Care Education/Training Program
PROC: 4A023N7 Measurement of Cardiac Sampling and Pressure, Left Heart, Percutaneous Approach (ICD-10-PCS; CPT 93452; principal; 2024-12-30 13:30)
DX: I21.4 Non-ST elevation (NSTEMI) myocardial infarction (principal); I50.22 Chronic systolic (congestive) heart failure; I25.10 Atherosclerotic heart disease of native coronary artery without angina pectoris; K21.9 Gastro-esophageal reflux disease without esophagitis; H91.90 Unspecified hearing loss, unspecified ear; I11.0 Hypertensive heart disease with heart failure; E78.5 Hyperlipidemia, unspecified; Z95.0 Presence of cardiac pacemaker; Z79.899 Other long term (current) drug therapy
CPT/HCPCS: 36415; 71045; 71275; 80053; 80061; 83036; 83735; 83880; 84443; 84484; 85007; 85025; 85347; 85378; 85610; 85730; 86803; 87389; 93005; 93306; 99152; 99153; 99285; C1725; C1769; C1874; J1200; J1644; J2003; J2250; J2270; J2405; J3010; J7040; Q9967

== ENCOUNTER 2025-01-06 08:05 | Outpatient (CLI) | payer OTHER, SELFPAY ==
[2025-01-06 08:48] LABS: Hematocrit 42.7 % (42.0-52.0); Hemoglobin 14.5 g/dL (14.1-18.0); Immature Granulocytes % 0.1 %; Mean Corpuscular HGB Conc 34.0 g/dL (31.8-35.4); Mean Corpuscular Hemoglobin 31.4 pg (27.0-31.2); Mean Corpuscular Volume 92.4 fl (80-94); Nucleated Red Blood Cells % 0 %; Platelet Count 299 K/mm3 (142-424); Red Blood Count 4.62 M/mm3 (4.60-6.20); Red Cell Distribution Width-SD 40.3 fL; White Blood Count 7.4 K/mm3 (4.8-10.8)
[2025-01-06 09:13] LABS: Anion Gap 10.2 mEq/L (5-15); Blood Urea Nitrogen 11 mg/dl (9-20); Calcium 9.6 mg/dl (8.4-10.2); Carbon Dioxide 27 mmol/L (22.0-30.0); Chloride 105 mmol/L (98-107); Creatinine,Serum 0.90 mg/dl (0.66-1.25); Estimated Glomerular Filt Rate 88 ml/min (>60); GFR (African American) 106 ML/MIN (>60); Glucose 89 mg/dl (74-100); Potassium 4.2 mmoL/L (3.5-5.1); Sodium 138 mmol/L (136-145)
== END 2025-01-06 23:59 | disposition home or self-care (01) ==
LOC: LAB 08:08
PROVIDERS: PCP Family Medicine; Visit Provider Physician Assistant
DX: I21.4 Non-ST elevation (NSTEMI) myocardial infarction (principal)
CPT/HCPCS: 36415; 80048; 85025

== ENCOUNTER 2025-02-12 12:49 | Outpatient (RCR) | payer OTHER, SELFPAY | END 2025-02-28 08:00 | disposition home or self-care (01) | LOC: CR 12:49 | PROVIDERS: Visit Provider Internal Medicine | DX: Z48.812 Encounter for surgical aftercare following surgery on the circulatory system (principal); Z98.61 Coronary angioplasty status ==

== ENCOUNTER 2025-04-01 07:38 | Outpatient (CLI) | payer OTHER, SELFPAY ==
--- OUTSIDE RECORDS SUMMARY | 2025-02-17 13:40 | XMS_ITS | Encounter Summary ---
Author Organization [facility] Address [address] [place] [address] Care Team Providers Care Customer Specialist Name Role Phone Ophelia Riley MD Primary Care Provider [phone] Celia Avery RN Unavailable Unavailable Reason for Referral * Medications - Closed Specialty Diagnoses / Procedures Referred By Contbulmaro t Referred To Contact Diagnoses Cardiomyopathy, unspecified type (CMS/HCC) [place] [address] Phone: tel: fax: Referral ID Status Reason Start Date Expiration Date Visits Re quested Visits Authorized [id number] Closed 1 1 Reason for Visit * Reason Comments Annual Exam Immunizations declined Encounter Details Date Type Department Care Team (Late st Contact Info) Description 02/17/2025 2:40 PM EDT Office Visit [facility] [place] [address] [place] [address] Routine general medical examination at a health care facility (Primary Dx); Mixed hyperlipidemia; Seasonal allergic rhinitis, unspecified trigger; Need for pneumococcal 20-valent conjugate vaccination; Cardiomyopathy, unspecified type (CMS/HCC); Cardiac left ventricular ejection fraction 30-35 percent; Biventricular ICD (implantable cardioverter-defibril lator) in place; GERD without esophagitis Social History Tobacco Use Types Packs/Day Years Used Date Smoking Tobacco: Never Passive Smoke Exposure: Never Smokeless Tobacco: Never Alcohol Use Standard Drinks/Week Comments Never 0 (1 standard drink = 0.6 oz pur e alcohol) PHQ-2 Answer Date Recorded Patient Health Questionnaire-2 Score 0 02/17/2025 PHQ-9 Answer Date Recorded Patient Health Questionnaire-9 Score 0 02/17/2025 Humiliation, Afraid, Rape, and Kick questionnair e Answer Date Recorded Within the last year, have y ou been afraid of your partner or ex-partner? No 02/10/2025 Within the last year, have y ou been humiliated or emotionally abused in other ways by your partner or ex-partner? No Within the last year, have y ou been kicked, hit, slapped, or otherwise physically hurt by your partner or ex-partner? No 02/10/2025 Within the last year, have y ou been raped or forced to have any kind of sexual activity by your partner or ex-partner? No 02/10/2025 AUDIT-C Answer Date Recorded Q1: How often do you have a drink containing alcohol? Never 11/20/2024 Q2: How many drinks containi ng alcohol do you have on a typical day when you are drinking? Patient does not drink Q3: How often do you have si x or more drinks on one occasion? Never 11/20/2024 Hunger Vital Sign Answer Date Recorded Within the past 12 months, y ou worried that your food would run out before you got the money to buy more. Sometimes true Within the past 12 months, t he food you bought just didn't last and you didn't have money to get more. Sometimes true PRAPARE - Transportation Answer Date Re corded In the past 12 months, has l ack of transportation kept you from medical appointments or from getting medications? No 01/29 In the past 12 months, has l ack of transportation kept you from meetings, work, or from getting things needed for daily living? No 02/18/2025 Housing Stability Vital Sign Answer Omero e Recorded In the last 12 months, was t here a time when you were not able to pay the mortgage or rent on time? No 02/18/2025 Number of Times Moved in the Last Year Not on fi le 02/18/2025 At any time in the past 12 m [facility], were you homeless or living in a jail (including now)? No 02/18/2025 [facility] Utilities Answer Date Recorded In the past 12 months has th e electric, gas, oil, or water company threatened to shut off services in your home? No 02/18/2025 PHQ-2A Answer Date Recorded Patient Health Questionnaire-2 Score 0 10/20/2022 Sex and Gender Information Value Date Recorded Sex Assigned at Not on file Legal Sex Male 7:46 PM EDT Gender Identity Not on file Sexual Orientation Not on file documented as of this encounter Last Filed Vital Signs Vital Sign Reading Time Taken Comments Blood Pressure 102/68 02/17/2025 2:32 PM EDT Pulse 63 02/17/2025 2:32 PM EDT Temperature 37 C (98.6 F) 02/17/2025 2:32 PM EDT Respiratory Rate 14 02/17/2025 2:32 PM EDT Oxygen Saturation 96% 02/17/2025 2:32 PM EDT Inhaled Oxygen Concentration - - Weight 72.7 kg (160 lb 4.4 oz) 02/17/2025 2:32 P M EDT Height 170.2 cm (5' 7 ) 02/17/2025 2:32 PM EDT Body Mass Index 25.1 02/17/2025 2:32 PM EDT documented in this encounter Functional Status * Over the past 2 weeks, how often have you been bothered by any of the following problems? Question Answer Date of Assessment Author Little interest or pleasure in doing things Not at all 02/17/2025 2:34 PM EDT Abbie Guajardo Feeling down, depressed, or hopeless Not at all 01/29 2:34 PM EDT Abbie Guajardo Patient Health Questionnaire-2 Score 0 01/29 2:34 PM EDT Abbie Guajardo * Question Answer Date of Assessment Author Trouble falling or staying a sleep, or sleeping too much Not at all 02/17/2025 2:34 PM EDT Abbie Guajardo Feeling tired or having little energy Not at all 2:34 PM EDT Abbie Guajardo Poor appetite or overeating Not at all 02/17/2025 2: 34 PM EDT Abbie Guajardo Feeling bad about yourself - or that you are a failure or have let yourself or your family down Not at all 02/17/2025 2:34 PM EDT Abbie Guajardo Trouble concentrating on thi ngs, such as reading the newspaper or watching television Not at all 02/17/2025 2:34 PM EDT Abbie Guajardo Moving or speaking so slowly that other people could have noticed? Or the opposite - being so fidgety or restless that you have been moving around a lot more than usual. Not at all 02/17/2025 2:34 PM EDT Abbie Guajardo Thoughts that you would be b judit off or hurting yourself in some way Not at all 02/17/2025 2:34 PM EDAbbie Ko Patient Health Questionnaire-9 Score 0 01/29 2:34 PM EDT Abbie Guajardo * Calculated C-SSRS Risk Score (Lifetime/Recent) Answer Date of Assessment Author No Risk Indicated 02/17/2025 2:34 PM EDRory Ko * How difficult have these problems made it for you to do your work, take care of things at home, or get along with other people? Answer Date of Assessment Author Not difficult at all 02/17/2025 2:34 PM EDAbbie Ko * Question Answer Date of Assessment Author 1. Wish to be (Past 1 Month) No 025 2:34 PM EDAbbie Ko 2. Non-Specific Active Suici patel Thoughts (Past 1 Month) No 02/17/2025 2:34 PM EDAbbie Ko 6. Suicidal Behavior (Lifetime) No 2:34 PM EDAbbie Ko documented as of this encounter Miscellaneous Notes * Progress Notes - Ophelia Riley MD - 02/17/2025 2:40 PM EDT Office Progress Note Subjective Howard Mitchell is a 55 y.o. male who presents for Annual Exam and Immunizations (declined). History of Present Illness The patient presents for a checkup. He has congenital deaf mutism. senior developer was present for visit. He reports no specific concerns at this time. He has been under the care of a expense clerk since his last visit here. In 05/2024, a pacemaker/defibrillator was implanted, which has been functioning well. Occasionally, he experiences a mild shocking sensation, but this has not occurred recently. On 12/29/2024, he experienced a heart attack and had two stents placed by Dr. Mehrdad Henry at [place].His current medications include Farxiga, lansoprazole (taken once daily in the morning), atorvastatin, cetirizine, metoprolol, and lisinopril. He also has cyclobenzaprine but uses it sparingly and does not require a refill. He is seeking a refill of Farxiga as his supply will be depleted by tomorrow. He has requested that all his prescriptions be transferred to [facility] in [place] or [facility]. His last blood work was conducted in 06/2024. He has consumed food today, including breakfast and a small lunch. He underwent a Cologuard test in 2023. His last tetanus shot was administered in 2014 following a foot injury from stepping on a nail. He has not received an influenza vaccine recently. He regularly visits an passenger solicitor and dentist, and recently acquired new glasses. He missed a dentalappointment in 11/2024 due to his heart attack and needs to reschedule. He has noticed an improvement in his dizziness since the pacemaker implantation, although he still experiences occasional lightheadedness. He does not monitor his blood pressure at home but has a wrist cuff for this purpose. His atorvastatin dosage was increased from 10 mg to 40 mg during his hospital stay post-heart attack, but he has run out of this medication and only has 10 mg tablets available. He experiences coughing while eating and after meals, and occasionally feels as though he is choking on food. He has been taking heartburn medication for the past 4 to 5 months, which has alleviated his symptoms, although they still occur intermittently. He does not feel as though food is stuck in his throat, but rather experiences a sensation of fullness when the coughing occurs. He sometimes regurgitates a white fluid when he eats at night and feels full. He underwent an endoscopy on Sunday. He reports irregular bowel movements, with some being regular and others more difficult to pass. The following sections have been reviewed and updated during this encounter: Tobacco Allergies Meds Problems Med Hx Surg Hx Fam Hx Objective Blood pressure 102/68, pulse 63, temperature 37 ??C (98.6 ??F), resp. rate 14, height 1.702 m (5' 7 ), weight 72.7 kg (160 lb 4.4 oz), SpO2 96%. Body mass index is 25.1 kg/m??. Physical Exam Constitutional: General: He is not in acute distress. Appearance: He is well-developed. HENT: Head: Normocephalic and atraumatic. Right Ear: Tympanic membrane and external ear normal. Left Ear: Tympanic membrane and external ear normal. Nose: Nose normal. No congestion. Mouth/Throat: Mouth: Mucous membranes are moist. Pharynx: Oropharynx is clear. Eyes: Extraocular Movements: Extraocular movements intact. Conjunctiva/sclera: Conjunctivae normal. Pupils: Pupils are equal, round, and reactive to light. Neck: Thyroid: No thyromegaly. Cardiovascular: Rate and Rhythm: Normal rate and regular rhythm. Pulses: Normal pulses. Pulmonary: Effort: Pulmonary effort is normal. Breath sounds: Normal breath sounds. Abdominal: General: Bowel sounds are normal. There is no distension. Palpations: Abdomen is soft. There is no mass. Tenderness: There is no abdominal tenderness. Musculoskeletal: General: Normal range of motion. Cervical back: Normal range of motion and neck supple. Right lower leg: No edema. Left lower leg: No edema. Lymphadenopathy: Cervical: No cervical adenopathy. Skin: General: Skin is warm and dry. Findings: No rash. Neurological: General: No focal deficit present. Mental Status: He is alert and oriented to person, place, and time. Motor: Motor function is intact. Gait: Gait is intact. Deep Tendon Reflexes: Reflexes are normal and symmetric. Psychiatric: Mood and Affect: Mood normal. Behavior: Behavior normal. Assessment/Plan Diagnoses and all orders for this visit: Routine general medical examination at a health care facility - CBC W/O Differential; Future - Comprehensive Metabolic Panel, Plasma; Future - Hemoglobin A1c; Future - Lipid Profile, Plasma; Future - Vitamin B12, Serum; Future - Thyroid Stimulating Hormone, Plasma; Future Mixed hyperlipidemia - atorvastatin (Lipitor) 10 MG tablet; Take 1 tablet by mouth nightly. - Comprehensive Metabolic Panel, Plasma; Future - Lipid Profile, Plasma; Future Seasonal allergic rhinitis, unspecified trigger - cetirizine (ZyrTEC) 10 MG tablet; Take 1 tablet by mouth daily. Need for pneumococcal 20-valent conjugate vaccination - pneumococcal 20-shira conjugate (Prevnar 20) vaccine 0.5 mL Cardiomyopathy, unspecified type (CMS/HCC) - Farxiga 10 MG tablet; Take 1 tablet by mouth daily. - metoprolol succinate XL (Toprol-XL) 25 MG 24 hr tablet; Take 1 tablet by mouth daily. - lisinopril 5 MG tablet; Take 1 tablet by mouth daily. - CBC W/O Differential; Future - Comprehensive Metabolic Panel, Plasma; Future - Hemoglobin A1c; Future - Lipid Profile, Plasma; Future - Vitamin B12, Serum; Future - Thyroid Stimulating Hormone, Plasma; Future Cardiac left ventricular ejection fraction 30-35 percent Biventricular ICD (implantable cardioverter-defibrillator) in place GERD without esophagitis - lansoprazole (Prevacid) [address] capsule; Take 1 capsule by mouth daily before breakfast. Do not crush or chew. - CBC W/O Differential; Future - Vitamin B12, Serum; Future Assessment & Plan Health maintenance: - Monitor blood pressure at home, especially when experiencing dizziness or sensation of impending fall; inform office or expense clerk if readings are low. - Comprehensive panel of blood tests to assess cholesterol, liver function, kidney function, and blood sugar levels, return when fasting - Repeat Cologuard test in 2026. - Administer pneumonia vaccine today; tetanus vaccine scheduled for 2 weeks from now when he returns for fasting labs (Boostrix) - Transfer all prescriptions to clinic pharmacy in [place]. - Send 90-day supply with 3 refills for Farxiga, atorvastatin, metoprolol, and lisinopril today. Gastroesophageal reflux disease: - Lansoprazole has helped with heartburn but occasional symptoms persist. - Continue taking lansoprazole once daily in the morning. - Notify office if symptoms worsen or if choking on food or feeling like food is going down airway. - Discussed doing an EGD to look for source of coughing and occasional choking cessation. Patient declines at this time but will let me know if symptoms worsen Hyperlipidemia: - Currently on atorvastatin 40 mg daily. - Send prescription for atorvastatin 40 mg to clinic pharmacy in [place]. Hypertension: - Currently taking metoprolol and lisinopril. - Send prescription for both medications to clinic pharmacy in [place]. - Monitor blood pressure at home and report any low readings. Muscle spasms: - Has cyclobenzaprine but does not use it much; no need for refills. Allergies: - Taking cetirizine for allergies. Follow-up: - Patient will follow up in 1 year or sooner if necessary. Verbal consent was obtained to use ambient listening technology to assist in the documentation of the encounter: yes documented in this encounter Plan of Treatment Upcoming Encounters Date Type Department Care Team (Late st Contact Info) Description 04/06/2025 2:30 PM EST Appointment Cardiac Imaging [address] [place] [address] 04/06/2025 4:00 PM EST Office Visit [facility] [place] [address] [place] [address] Janice Benitez MD [address] [place] [address] documented as of this encounter Results * Thyroid Stimulating Hormone, Plasma (02/23/2025 8:02 AM EDT) Thyroid Stimulating Hormone, Plasma 1.14 0.40 - 4.20 uIU/mL 02/23/2025 2:10 PM EDT [facility] Blood Venous blood specimen / Unknown Venipuncture / Unknown 02/23/2025 8:02 AM EDT 02/23/2025 8:02 AM EDT us Ophelia Riley MD LAB BLOOD ORDERABLES Final Re sult [facility] [address] [place] [address] * Vitamin B12, Serum (02/23/2025 8:02 AM EDT) Vitamin B12, Serum 458 210 - 1,033 pg/mL 02/23/2025 2:14 PM EDT [facility] Blood Venous blood specimen / Unknown Venipuncture / Unknown 02/23/2025 8:02 AM EDT 02/23/2025 8:02 AM EDT us Ophelia Riley MD LAB BLOOD ORDERABLES Final Re sult [facility] [address] [place] [address] * (ABNORMAL) Lipid Profile, Plasma (02/23/2025 8:02 AM EDT) Cholesterol, Plasma 182 <200 mg/dL 02/23/2025 2:10 PM EDT [facility] Comment: Cholesterol Reference Range (age >17 years): Desirable <200 mg/dL Borderline 200 to 239 mg/dL Undesirable >239 mg/dL HDL 40 >=40 mg/dL 02/23/2025 2:10 PM EDT [facility] Comment: HDL Cholesterol Reference Ranges (age >17 years): Female, acceptable > or = 50 mg/dL Male, acceptable > or = 40 mg/dL Triglycerides, Plasma 123 <150 mg/dL 02/23/2025 2:10 PM EDT [facility] Comment: Triglyceride Reference Range (age >17 years): Desirable: <150 mg/dL Borderline high: 150 to 199 mg/dL High: 200 to 499 mg/dL Very high: >499 mg/dL Increased risk of pancreatitis: >1000 mg/dL Cholesterol/HDL Ratio 5 02/23/2025 2:10 PM EDT [facility] LDL, Calculated 120(H) <100 mg/dL 2:10 PM EDT [facility] Comment: LDL Cholesterol Reference Range (age >17 years): Optimal: <100 mg/dL Near or above optimal: 100 - 129 mg/dL Borderline high: 130 - 159 mg/dL High: 160 - 189 mg/dL Very high: >189 mg/dL LDL Cholesterol Reference Range (age <18 years): Desirable: <110 mg/dL Borderline: 110 - 129 mg/dL Undesirable: >130 mg/dL LDL Cholesterol is calculated using the Sargent/NIH equation. Fasting greater than or equal to 12 hours? Yes 02/23/2025 2:10 PM EDT [facility] Blood Venous blood specimen / Unknown Venipuncture / Unknown 02/23/2025 8:02 AM EDT 02/23/2025 8:02 AM EDT us Ophelia Riley MD LAB BLOOD ORDERABLES Final Re sult Performing Organization Address [facility] Co de Phone Number [facility] [address] [place] [address] * Hemoglobin A1c (02/23/2025 8:02 AM EDT) Hemoglobin A1c 5.4 <5.7 % 02/23/2025 3:25 PM EDT [facility] Blood Venous blood specimen / Unknown Venipuncture / Unknown 02/23/2025 8:02 AM EDT 02/23/2025 8:02 AM EDT Narrative [facility] - 02/23/2025 3:25 PM EDT HA1C Interpretive Data: Diagnosis of Diabetes: Diabetic > or = 6.5% Pre-diabetic 5.7 to 6.4% Non-diabetic < or = 5.6% Glycemic Targets for Type I and Type II Diabetics: Non- Adults <7.0% Adults <6.0% Children and Adolescents <7.5% Source: [place] [employer]. Standards of medical care in diabetes,2017. Diabetes Care.2017:40 (suppl 1):S1-S135. us Ophelia Riley MD LAB BLOOD ORDERABLES Final Re sult Performing Organization Address [facility] Co de Phone Number [facility] [address] [place] [address] * Comprehensive Metabolic Panel, Plasma (02/23/2025 8:02 AM EDT) Glucose, Plasma 95 74 - 99 mg/dL 02/23/2025 2:10 PM EDT [facility] BUN, Plasma 10 7 - 21 mg/dL 02/23/2025 2:10 PM EDT [facility] Creatinine, Plasma 0.96 0.70 - 1.20 mg/dL 02/23/2025 2:10 PM EDT [facility] BUN/Creatinine Ratio 10 02/23/2025 2:10 PM EDT [facility] Sodium, Plasma 138 136 - 145 mmol/L 02/23/2025 2:10 PM EDT [facility] Potassium, Plasma 4.0 3.6 - 4.9 mmol/L 02/23/2025 2:10 PM EDT [facility] Chloride, Plasma 103 97 - 107 mmol/L 02/23/2025 2:10 PM EDT [facility] CO2, Plasma 26 22 - 29 mmol/L 02/23/2025 2:10 PM EDT [facility] Anion Gap 9 6 - 16 mmol/L 02/23/2025 2:10 PM EDT [facility] Total Calcium, Plasma 9.4 8.9 - 10.2 mg/dL 02/23/2025 2:10 PM EDT [facility] Total Protein 7.3 6.3 - 7.9 g/dL 02/23/2025 2:10 PM EDT [facility] Albumin, Plasma 4.4 3.5 - 5.2 g/dL 02/23/2025 2:10 PM EDT [facility] AST, Plasma 21 10 - 50 U/L 02/23/2025 2:10 PM EDT [facility] ALT, Plasma 24 10 - 50 U/L 02/23/2025 2:10 PM EDT [facility] Alkaline Phosphatase, Plasma 94 40 - 115 U/L 02/23/2025 2:10 PM EDT [facility] Total Bilirubin, Plasma 0.5 0.2 - 1.1 mg/dL 02/23/2025 2:10 PM EDT [facility] eGFRcr 93.3 mL/min/1.7 3m*2 02/23/2025 2:10 PM EDT [facility] Comment:Reported eGFRcr in m L/min/1.73m2 is based the CKD-EPI 2020 equation that does not use a race coefficient. Blood Venous blood specimen / Unknown Venipuncture / Unknown 02/23/2025 8:02 AM EDT 02/23/2025 8:02 AM EDT us Ophelia Riley MD LAB BLOOD ORDERABLES Final Re sult [facility] [address] [place] [address] * (ABNORMAL) CBC W/O Differential (02/23/2025 8:02 AM EDT) WBC Count 7.07 3.70 - 10.30 10*3/uL LAB HEMATOLOGY METHOD 02/23/2025 2:00 PM EDT [facility] RBC Count 4.64 4.60 - 6.10 10*6/uL LAB HEMATOLOGY METHOD 02/23/2025 2:00 PM EDT [facility] HGB 15.1 13.7 - 17.5 g/dL LAB HEMATOLOGY METHOD 02/23/2025 2:00 PM EDT [facility] HCT 45.0 40.0 - 51.0 % LAB HEMATOLOGY METHOD 02/23/2025 2:00 PM EDT [facility] Platelet Count 267 155 - 369 10*3/uL LAB HEMATOLOGY METHOD 02/23/2025 2:00 PM EDT [facility] MCV 97 79 - 98 fL LAB HEMATOLOGY METHOD 02/23/2025 2:00 PM EDT [facility] MCH 32.5(H) 26.0 - 32.0 pg LAB HEMATOLOGY METHOD 02/23/2025 2:00 PM EDT [facility] MCHC 33.6 30.7 - 35.5 g/dL LAB HEMATOLOGY METHOD 02/23/2025 2:00 PM EDT [facility] RDW 12.6 11.5 - 14.5 % LAB HEMATOLOGY METHOD 02/23/2025 2:00 PM EDT [facility] MPV 9.9 8.8 - 12.5 fL LAB HEMATOLOGY METHOD 02/23/2025 2:00 PM EDT [facility] nRBC 0.0 <=0.0 per 100 WBCs LAB HEMATOLOGY METHOD 02/23/2025 2:00 PM EDT [facility] Blood Venous blood specimen / Unknown Venipuncture / Unknown 02/23/2025 8:02 AM EDT 02/23/2025 8:02 AM EDT us Ophelia Riley MD LAB BLOOD ORDERABLES Final Re sult [facility] [address] [place] [address] documented in this encounter Visit Diagnoses Diagnosis Routine general medical examination at a health care facility- Primary Mixed hyperlipidemia Seasonal allergic rhinitis, unspecified trigger Need for pneumococcal 20-valent conjugate vaccination Cardiomyopathy, unspecified type (CMS/HCC) Cardiac left ventricular ejection fraction 30-35 percent Biventricular ICD (implantable cardioverter-defibrillator) in place GERD without esophagitis Esophageal reflux documented in this encounter Additional Health Concerns Assessment Noted Time PHQ-9 Depression Total Score: 0 02/18/20 25 2:34 PM EDT A fall risk assessment has been complete d for the patient 11/20/2024 1:58 PM EDT A Body Mass Index follow-up plan has been documented for the patient 02/17/2025 5:03 PM EDT documented as of this encounter Care Teams Customer Specialist Relationship Specialty Start Date End Date Ophelia Riley MD [address] [place] [address] PCP - General Family Medicine 11/24/21 Celia Avery, RN CH - 6 [facility] None Registered Nurse Cardiology 10/10/23 documented as of this encounter
--- OUTSIDE RECORDS SUMMARY | 2025-02-23 07:00 | XMS_ITS | Encounter Summary ---
Author Organization [facility] Address [address] [place] [address] Care Team Providers Care Last Dipper Name Role Phone Ophelia Riley MD Primary Care Provider [phone] Celia Avery RN Unavailable Unavailable Encounter Details Date Type Department Care Team (Latest Contact Info) Description 02/23/2025 8:00 AM EDT Clinical Support [facility] [address] [place] [address] Encounter for immunization (Primary Dx) Social History Tobacco Use Types Packs/Day Years [...] any time in the past 12 m [facility], were you homeless or living in a care home (including now)? No 02/18/2025 [facility] Utilities Answer Date Recorded In the past 12 months has e [employer], gas, oil, or water [employer] threatened to shut off services in your [...] Sign Reading Time Taken Comments Blood Pressure - - Pulse 60 02/23/2025 8:14 AM EDT Temperature - - Respiratory Rate - - Oxygen Saturation 95% 02/23/2025 8:14 AM EDT Inhaled Oxygen Concentration - - Weight - - Height - - Body Mass Index - - documented in this encounter Miscellaneous Notes * Progress Notes - Demetria Kay - 02/23/2025 8:00 AM EDT Pt came in today for a tdap and did well with it in the in the right arm. documented in this encounter Plan of Treatment Upcoming Encounters Date Type Department Care Team (Late st Contact Info) Description 04/06/2025 2:30 PM EST Appointment Cardiac Imaging [address] [place] [address] 04/06/2025 4:00 PM EST Office Visit [facility] [place] [facility] [address] [place] [address] Janice Benitez MD [address] [place] [address] documented as of this encounter Visit Diagnoses Diagnosis Encounter for immunization- Primary documented in this encounter Additional Health Concerns Assessment Noted Time PHQ-9 Depression Total Score: 0 02/18/20 25 2:34 PM EDT A fall risk assessment has been complete d for the patient 11/20/2024 1:58 PM EDT A Body Mass Index follow-up plan has been documented for the patient 02/23/2025 9:12 AM EDT documented as of this encounter Care Teams Last Dipper Relationship Specialty Start Date End Date Ophelia Riley MD [address] [place] [phone] PCP - General Family Medicine 11/24/21 Celia Avery, DOMINIQUE CH - 6 [facility] None Registered Nurse Cardiology 10/10/23 documented as of this encounter
--- OUTSIDE RECORDS SUMMARY | 2025-02-23 07:30 | XMS_ITS | Encounter Summary ---
Author Organization Healthcare Address [address] [place] [address] Care Team Providers Care It Quality Assurance Analyst Name Role Phone Ophelia Riley MD Primary Care Provider [phone] Celia Avery RN Unavailable Unavailable Encounter Details Date Type Department Care Team (Latest Contact Info) Description 02/23/2025 8:30 AM EDT Clinical Support [facility] [address] [place] [address] Cardiomyopathy, unspecified type (CMS/HCC); Routine general medical examination at a health care facility; GERD without esophagitis; Mixed hyperlipidemia Social History Tobacco Use Types Packs/Day Years [...] any time in the past 12 m [facility], were you homeless or living in a retirement (including now)? No 02/18/2025 [facility] Utilities Answer Date Recorded In the past 12 months has th e [employer], gas, oil, or water company threatened to shut off services in your home? No 02/18/2025 PHQ-2A Answer Date Recorded Patient Health Questionnaire-2 Score 0 10/20/2022 Sex and Gender Information Value Date Recorded Sex Assigned at Not on file Legal Sex Male 7:46 PM EDT Gender Identity Not on file Sexual Orientation Not on file documented as of this encounter Miscellaneous Notes * Clinician Note - Jayme Haile - 02/23/2025 8:30 AM EDT Patient arrived for blood work.Patient arrived for blood work. documented in this encounter Plan of Treatment Upcoming Encounters Date Type Department Care Team (Late st Contact Info) Description 04/06/2025 2:30 PM EST Appointment Cardiac Imaging [address] [place] [address] 04/06/2025 4:00 PM EST Office Visit [facility] [place] [facility] [address] [place] [address] Janice Benitez MD [address] [place] [address] documented as of this encounter Procedures Procedure Name Priority Date/Time Associated Diagnosis Comments CBC W/O DIFFERENTIAL Routine 02/23/2025 8:02 AM EDT Cardiomyopathy, unspecified type (CMS/HCC) GERD without esophagitis Routine general medical examination at a health care facility TSH Routine 02/23/2025 8:02 AM EDT Cardiomyopathy, unspecified type (CMS/HCC) Routine general medical examination at a health care facility HEMOGLOBIN A1C Routine 02/23/2025 8:02 AM EDT Cardiomyopathy, unspecified type (CMS/HCC) Routine general medical examination at a health care facility VITAMIN B12, SERUM Routine 02/23/2025 8: 02 AM EDT Cardiomyopathy, unspecified type (CMS/HCC) GERD without esophagitis Routine general medical examination at a health care facility LIPID PROFILE, PLASMA Routine 02/23/2025 8:02 AM EDT Mixed hyperlipidemia Cardiomyopathy, unspecified type (CMS/HCC) Routine general medical examination at a health care facility COMPREHENSIVE METABOLIC PANEL, PLASMA Routine 02/23/2025 8:02 AM EDT Mixed hyperlipidemia Cardiomyopathy, unspecified type (CMS/HCC) Routine general medical examination at a health care facility documented in this encounter Results * (ABNORMAL) CBC W/O Differential (02/23/2025 8:02 AM EDT) WBC Count 7.07 3.70 - 10.30 10*3/uL LAB HEMATOLOGY METHOD 02/23/2025 2:00 PM EDT [facility] RBC Count 4.64 4.60 - 6.10 10*6/uL LAB HEMATOLOGY METHOD 02/23/2025 2:00 PM EDT [facility] HGB 15.1 13.7 - 17.5 g/dL LAB HEMATOLOGY METHOD 02/23/2025 2:00 PM EDT [facility] HCT 45.0 40.0 - 51.0 % LAB HEMATOLOGY METHOD 02/23/2025 2:00 PM EDT [facility] Platelet Count 267 155 - 369 10*3/uL LAB HEMATOLOGY METHOD 02/23/2025 2:00 PM EDT [facility] MCV 97 79 - 98 fL LAB HEMATOLOGY METHOD 02/23/2025 2:00 PM EDT [facility] MCH 32.5(H) 26.0 - 32.0 pg LAB HEMATOLOGY METHOD 02/23/2025 2:00 PM EDT [facility] MCHC 33.6 30.7 - 35.5 g/dL LAB HEMATOLOGY METHOD 02/23/2025 2:00 PM EDT [facility] RDW 12.6 11.5 - 14.5 % LAB HEMATOLOGY METHOD 02/23/2025 2:00 PM EDT [facility] MPV 9.9 8.8 - 12.5 fL LAB HEMATOLOGY METHOD 02/23/2025 2:00 PM EDT [facility] nRBC 0.0 <=0.0 per 100 WBCs LAB HEMATOLOGY METHOD 02/23/2025 2:00 PM EDT [facility] Blood Venous blood specimen / Unknown Venipuncture / Unknown 02/23/2025 8:02 AM EDT 02/23/2025 8:02 AM EDT us Ophelia Riley MD LAB BLOOD ORDERABLES Final Re sult [facility] [address] [place] [address] * Comprehensive Metabolic Panel, Plasma (02/23/2025 8:02 AM EDT) [facility] Glucose, Plasma 95 74 - 99 mg/dL 02/23/2025 2:10 PM EDT [facility] BUN, Plasma 10 7 - 21 mg/dL 02/23/2025 2:10 PM EDT [facility] Creatinine, Plasma 0.96 0.70 - 1.20 mg/dL 02/23/2025 2:10 PM EDT [facility] BUN/Creatinine Ratio 10 02/23/2025 2:10 PM EDT [facility] Sodium, Plasma 138 136 - 145 mmol/L 02/23/2025 2:10 PM EDT [facility] Potassium, Plasma 4.0 3.6 - 4.9 mmol/L 02/23/2025 2:10 PM EDT [facility] Chloride, Plasma 103 97 - 107 mmol/L 02/23/2025 2:10 PM EDT [facility] CO2, Plasma 26 22 - 29 mmol/L 02/23/2025 2:10 PM EDT [facility] Anion Gap 9 6 - 16 mmol/L 02/23/2025 2:10 PM EDT [facility] Total Calcium, Plasma 9.4 8.9 - 10.2 mg/dL 02/23/2025 2:10 PM EDT [facility] Total Protein 7.3 6.3 - 7.9 g/dL 02/23/2025 2:10 PM EDT [facility] Albumin, Plasma 4.4 3.5 - 5.2 g/dL 02/23/2025 2:10 PM EDT [facility] AST, Plasma 21 10 - 50 U/L 02/23/2025 2:10 PM EDT [facility] ALT, Plasma 24 10 - 50 U/L 02/23/2025 2:10 PM EDT [facility] Alkaline Phosphatase, Plasma 94 40 - 115 U/L 02/23/2025 2:10 PM EDT [facility] Total Bilirubin, Plasma 0.5 0.2 - 1.1 mg/dL 02/23/2025 2:10 PM EDT [facility] eGFRcr 93.3 mL/min/1.7 3m*2 02/23/2025 2:10 PM EDT [facility] Comment:Reported eGFRcr in m L/min/1.73m2 is based the CKD-EPI 2020 equation that does not use a race coefficient. Blood Venous blood specimen / Unknown Venipuncture / Unknown 02/23/2025 8:02 AM EDT 02/23/2025 8:02 AM EDT Ophelia Riley MD LAB BLOOD ORDERABLES Final Re sult Performing Organization Address City/[facility] Co de Phone Number [facility] [address] [place] [address] * Hemoglobin A1c (02/23/2025 8:02 AM EDT) Hemoglobin A1c 5.4 <5.7 % 02/23/2025 3:25 PM EDT [facility] Blood Venous blood specimen / Unknown Venipuncture / Unknown 02/23/2025 8:02 AM EDT 02/23/2025 8:02 AM EDT Narrative [facility] - 02/23/2025 3:25 PM EDT HA1C Interpretive Data: Diagnosis of Diabetes: Diabetic > or = 6.5% Pre-diabetic 5.7 to 6.4% Non-diabetic < or = 5.6% Glycemic Targets for Type I and Type II Diabetics: Non- Adults <7.0% Adults <6.0% Children and Adolescents <7.5% Source: [place] [employer]. Standards of medical care in diabetes,2017. Diabetes Care.2017:40 (suppl 1):S1-S135. us Ophelia Riley MD LAB BLOOD ORDERABLES Final Re sult Performing Organization Address City/[facility] Co de Phone Number [facility] [address] [place] [address] * (ABNORMAL) Lipid Profile, Plasma (02/23/2025 8:02 AM EDT) Cholesterol, Plasma 182 <200 mg/dL 02/23/2025 2:10 PM EDT [facility] Comment: Cholesterol Reference Range (age >17 years): Desirable <200 mg/dL Borderline 200 to 239 mg/dL Undesirable >239 mg/dL HDL 40 >=40 mg/dL 02/23/2025 2:10 PM EDT [facility] Comment: HDL Cholesterol Reference Ranges (age >17 years): Female, acceptable > or = 50 mg/dL Male, acceptable > or = 40 mg/dL Triglycerides, Plasma 123 <150 mg/dL 02/23/2025 2:10 PM EDT [facility] Comment: Triglyceride Reference Range (age >17 years): Desirable: <150 mg/dL Borderline high: 150 to 199 mg/dL High: 200 to 499 mg/dL Very high: >499 mg/dL Increased risk of pancreatitis: >1000 mg/dL Cholesterol/HDL Ratio 5 02/23/2025 2:10 PM EDT [facility] LDL, Calculated 120(H) <100 mg/dL 2:10 PM EDT [facility] Comment: LDL Cholesterol Reference Range (age [...] 12 hours? Yes 02/23/2025 2:10 PM EDT [facility] Blood Venous blood specimen / Unknown Venipuncture / Unknown 02/23/2025 8:02 AM EDT 02/23/2025 8:02 AM EDT us Ophelia Riley MD LAB BLOOD ORDERABLES Final Re sult [facility] [address] [place] [address] * Vitamin B12, Serum (02/23/2025 8:02 AM EDT) Vitamin B12, Serum 458 210 - 1,033 pg/mL 02/23/2025 2:14 PM EDT [facility] Blood Venous blood specimen / Unknown Venipuncture / Unknown 02/23/2025 8:02 AM EDT 02/23/2025 8:02 AM EDT us Ophelia Riley MD LAB BLOOD ORDERABLES Final Re sult Performing Organization Address [facility] de Phone Number [facility] [address] [place] [address] * Thyroid Stimulating Hormone, Plasma (02/23/2025 8:02 AM EDT) Thyroid Stimulating Hormone, Plasma 1.14 0.40 - 4.20 uIU/mL 02/23/2025 2:[address] [facility] Blood Venous blood specimen / Unknown Venipuncture / Unknown 02/23/2025 8:02 AM EDT 02/23/2025 8:02 AM EDT us Ophelia Riley MD LAB BLOOD ORDERABLES Final Re sult Performing Organization Address [facility] de Phone Number [facility] [address] [place] [address] documented in this encounter Visit Diagnoses Diagnosis Cardiomyopathy, unspecified type (CMS/HCC) Routine general medical examination at a health care facility GERD without esophagitis Esophageal reflux Mixed hyperlipidemia documented in this encounter Additional Health Concerns Assessment Noted Time PHQ-9 Depression Total Score: 0 02/18/20 25 2:34 PM EDT A fall risk assessment has been complete d for the patient 11/20/2024 1:58 PM EDT A Body Mass Index follow-up plan has been documented for the patient 02/23/2025 9:12 AM EDT documented as of this encounter Care Teams It Quality Assurance Analyst Relationship Specialty Start Date End Date Ophelia Riley MD [address] [place] [address] PCP - General Family Medicine 11/24/21 Celia Avery, RN CH - 6 [facility] None Registered Nurse Cardiology 10/10/23 documented as of this encounter
--- OUTSIDE RECORDS SUMMARY | 2025-03-23 11:25 | XMS_ITS | Encounter Summary ---
Author Organization Healthcare Address [address] 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 No 02/18/2025 [facility] Utilities Answer Date Recorded In the past 12 months has e [employer], gas, oil, or water [employer] threatened to shut off services in your home? No 02/18/2025 PHQ-2A Answer Date Recorded Patient Health Questionnaire-2 Score 0 10/20/2022 Sex and Gender Information Value Date Recorded Sex Assigned at Not on file Legal Sex Male 7:46 PM EDT Gender Identity Not on file Sexual Orientation Not on file documented as of this encounter Medications at Time of Discharge ASPIRIN 81 PO Take 1 tablet by mouth. atorvastatin (Lipitor) 20 MG tabletIndications:Mix ed hyperlipidemia Take 1 tablet by mouth nightly. 90 tablet 3 02/23/2025 cetirizine (ZyrTEC) 10 MG tabletIndications:Sea stephany allergic rhinitis, unspecified trigger Take 1 tablet by mouth daily. 90 tablet 3 02/17/2025 cyclobenzaprine (Flexeril) 10 MG tabletIndications:Nec k pain, musculoskeletal Take 1 tablet (10 mg) by mouth at night if needed for muscle spasms. 30 tablet 11 02/15/2024 Farxiga 10 MG tabletIndications:Car diomyopathy, unspecified type (CMS/HCC) Take 1 tablet by mouth daily. 90 tablet 3 02/17/2025 lansoprazole (Prevacid) [address] capsuleIndications:GE RD without esophagitis Take 1 capsule by mouth daily before breakfast. Do not crush or chew. 90 capsule 3 02/17/2025 lisinopril 5 MG tabletIndications:Car diomyopathy, unspecified type (CMS/HCC) Take 1 tablet by mouth daily. 90 tablet 3 02/17/2025 metoprolol succinate XL (Toprol-XL) 25 MG 24 hr tabletIndications:Car diomyopathy, unspecified type (CMS/HCC) Take 1 tablet by mouth daily. 90 tablet 3 02/17/2025 documented as of this encounter Plan of Treatment Upcoming Encounters Date Type Department Care Team (Late st Contact Info) Description 04/06/2025 2:30 PM EST Appointment Cardiac Imaging [address] [place] [address] 04/06/2025 4:00 PM EST Office Visit [facility] [place] [facility] [address] 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 [...] and diagnosis. Presenting rhythm is atrial sensed with biventricular paced response. Otherwise unremarkable. No [...] documented as of this encounter Care Teams Armhole Raiser Lockstitch Relationship Specialty Start Date End Date Ophelia Riley MD [address] [place] [address] PCP - General Family Medicine 11/24/21 Celia Avery RN CH - [address] [place] [address] Registered Nurse Cardiology 10/10/23 documented as of this encounter
--- OUTSIDE RECORDS SUMMARY | 2025-04-01 07:43 | XMS_ITS | Encounter Summary ---
Author Organization Healthcare Address [address] [place] [address] Care Team Providers Care Procedures Tech Name Role Phone Ophelia Riley MD Primary Care Provider [phone] Celia Avery RN Unavailable Unavailable Encounter Details Date Type Department Care Team (Latest Contact Info) Description 03/30/2025 Travel Social History Tobacco Use Types Packs/Day [...] any time in the past 12 m [facility], were you homeless or living in a penitentiary (including now)? No 02/18/2025 [facility] Utilities Answer Date Recorded In the [...] PM EST Appointment Cardiac Imaging [address] [place] [address] 04/06/2025 4:00 PM EST Office Visit [facility] [place] [facility] [address] [facility] [place] [address] Janice Benitez MD [address] [place] [address] documented as of this encounter Visit Diagnoses [...] documented as of this encounter Care Teams Procedures Tech Relationship Specialty Start Date End Date Ophelia Riley MD [address] [place] [address] PCP - General Family Medicine 11/24/21 Celia Avery RN CH - 6 [facility] None Registered Nurse Cardiology 10/10/23 documented as of this encounter
--- OUTSIDE RECORDS SUMMARY | 2025-04-01 07:43 | XMS_ITS | Clinical Summary ---
Author Organization [facility] Address [address] [place] [address] Care Team Providers Care Bone Grinder Name Role Phone Ophelia Riley MD Primary Care Provider [phone] Social History Tobacco Use Types Packs/Day Years [...] 1989 COLOGUARD 2015 COLON CANCER SCREENING 5 YEAR SIGMOIDOSCOPY 2015 COLONOSCOPY [address] CANCER SCREENING 2015 [address] COLONOGRAPHY 2015 FECAL OCCULT BLOOD TEST 2015 FIT Testing (1 year) 2015 Pneumococcal Vaccine 50+ (1 of 1 - PCV) 02/13/2020 ZOSTER VACCINE (2 of 2) 03/10/2022 01/13/2022 INFLUENZA VACCINE 11/28/2024 06/27/2019 Insurance [employer] Care Teams Bone Grinder Relationship Specialty Start Date End Date Ophelia Riley MD [address] [place] [address] PCP - General Family Medicine 01/20/22
--- OUTSIDE RECORDS SUMMARY | 2025-04-01 07:43 | XMS_ITS | Encounter Summary ---
Author Organization [facility] Address [address] [place] [address] Care Team Providers Care Driver Merchandiser Name Role Phone Ophelia Riley MD Primary Care Provider Celia Avery RN Unavailable Unavailable Encounter Details Date Type Department Care Team (Late st Contact Info) Description 02/23/2025 Results Follow-Up [facility] [address] [place] [address] Ophelia Riley MD [address] [place] [address] Social History Tobacco Use Types Packs/Day [...] were you homeless or living in a assisted (including now)? No 02/18/2025 [facility] Utilities Answer Date Recorded In the past 12 months has th e [employer], gas, oil, or water [employer] threatened to shut off services in your [...] PM EST Appointment Cardiac Imaging [address] [place] [address] 04/06/2025 4:00 PM EST Office Visit [facility] [place] [facility] [address] [place] [address] Janice Benitez MD [address] [place] [address] documented as of this encounter Visit Diagnoses Diagnosis Mixed hyperlipidemia documented in this encounter Additional Health Concerns Assessment Noted Time PHQ-9 Depression Total Score: 0 02/18/20 25 2:34 PM EDT A fall risk assessment has been complete d for the patient 11/20/2024 1:58 PM EDT A Body Mass Index follow-up plan has been documented for the patient 02/23/2025 9:12 AM EDT documented as of this encounter Care Teams Driver Merchandiser Relationship Specialty Start Date End Date Ophelia Riley MD [address] [place] [address] PCP - General Family Medicine 11/24/21 Celia Avery RN CH - 6 [facility] None Registered Nurse Cardiology 10/10/23 documented as of this encounter
--- OUTSIDE RECORDS SUMMARY | 2025-04-01 07:43 | XMS_ITS | Encounter Summary ---
Author Organization Healthcare Address [address] [place] [address] Care Team Providers Care Database Specialist Name Role Phone Ophelia Riley MD Primary Care Provider [phone] Celia Avery RN Unavailable Unavailable Encounter Details Date Type Department Care Team (Late st Contact Info) Description 02/06/2022 Outside Procedure External Location [address] [place] [address] Ophelia Riley MD [address] [place] [address] Social History Tobacco Use Types Packs/Day [...] PM EST Appointment Cardiac Imaging [address] [place] [address] 04/06/2025 4:00 PM EST Office Visit [facility] [place] [facility] [address] [place] [address] Janice Benitez MD [address] [place] [address] documented as of this encounter Procedures Procedure Name Priority Date/Time Associated Diagnosis Comments MR HEAD W AND WO IV CONTRAST 02/06/2022 1:32 PM EDT documented in this encounter Results * MR Head w and wo IV Contrast (02/06/2022 1:32 PM EDT) Anatomical Region Laterality Modality Head Magnetic Resonan ce 02/06/2022 1:32 PM EDT Narrative 02/07/2022 6:43 AM EDT [address] [place] [address] Name: FRANSISCA MITCHELL Exam Date: 02/06/2022 : 1970 Age 51 Gender: M Physician: Ophelia Riley Facility: [facility] Facility HSV: Outpatient Exam: MRI BRAIN [...] Thank you for referring FRANSISCA MITCHELL to [facility]. Legally authenticated by JASPER Sotomayor III 2022-02-06 16:06:33 Procedure Note Provider, [place] - 02/07/2022 [facility] [address] [place] [address] Name: FRANSISCA MITCHELL Exam Date: 02/06/2022 : 1970 Age 51 Gender: M Physician: Ophelia Riley Facility: [facility] Facility HSV: Outpatient Exam: MRI BRAIN [...] Thank you for referring FRANSISCA MITCHELL to [facility]. Legally authenticated by JASPER Sotomayor III 2022-02-06 16:06:33 us Ophelia Riley MD IMG MRI PROCEDURES Final Resu lt documented in this encounter Visit Diagnoses Not on filedocumented in this encounter Additional Health Concerns Assessment Noted Time A fall risk assessment has been complete d for the patient 06/10/2021 3:09 PM EST documented as of this encounter Care Teams Database Specialist Relationship Specialty Start Date End Date Ophelia Riley MD [address] [place] [address] PCP - General Family Medicine 11/24/21 Celia Avery, RN CH - 6 [facility] None Registered Nurse Cardiology 10/10/23 documented as of this encounter
--- OUTSIDE RECORDS SUMMARY | 2025-04-01 07:43 | XMS_ITS | Encounter Summary ---
Author Organization Healthcare Address [address] [place] [address] Care Team Providers Care Section Cutter Name Role Phone Ophelia Riley MD Primary Care Provider Celia Avery RN Unavailable Unavailable Encounter Details Date Type Department Care Team (Latest Contact Info) Description 02/23/2025 Travel Social History Tobacco Use Types Packs/Day [...] any time in the past 12 m [facility], were you homeless or living in a penitentiary (including now)? No 02/18/2025 [facility] Utilities Answer Date Recorded In the [...] PM EST Appointment Cardiac Imaging [address] [place] [address] 04/06/2025 4:00 PM EST Office Visit [facility] [place] [facility] [address] [facility] [place] [address] Janice Benitez MD [address] [place] [address] documented as of this encounter Visit Diagnoses [...] documented as of this encounter Care Teams Section Cutter Relationship Specialty Start Date End Date Ophelia Riley MD [address] [place] [address] PCP - General Family Medicine 11/24/21 Celia Avery RN [facility] - 6 [facility] None Registered Nurse Cardiology 10/10/23 documented as of this encounter
--- OUTSIDE RECORDS SUMMARY | 2025-04-01 07:43 | XMS_ITS | Encounter Summary ---
Author Organization Healthcare Address [address] [place] [address] Care Team Providers Care Supervisor Drapery Hanging Name Role Phone Ophelia Riley MD Primary Care Provider [phone] Celia Avery RN Unavailable Unavailable Encounter Details Date Type Department Care Team (Late st Contact Info) Description 02/06/2022 Outside Procedure External Location [address] [place] [address] Ophelia Riley MD [address] [place] [address] Social History Tobacco Use Types Packs/Day [...] PM EST Appointment Cardiac Imaging [address] [place] [address] 04/06/2025 4:00 PM EST Office Visit [facility] [place] [facility] [address] [place] [address] Janice Benitez MD [address] [place] [address] documented as of this encounter Procedures Procedure Name Priority Date/Time Associated Diagnosis Comments MR ANGIO HEAD WO IV CONTRAST 02/06/2022 1:32 PM EDT documented in this encounter Results * MR Angio Head wo IV Contrast (02/06/2022 1:32 PM EDT) Anatomical Region Laterality Modality Head Magnetic Resonan ce 02/06/2022 1:32 PM EDT Narrative 02/07/2022 6:43 AM EDT [address] [address] Name: FRANSISCA MITCHELL Exam Date: 02/06/2022 : 1970 Age 51 Gender: M Physician: Ophelia Riley Facility: [facility] Facility HSV: Outpatient Exam: MRA BRAIN [...] Thank you for referring FRANSISCA MITCHELL to [facility]. Legally authenticated by JASPER Sotomayor III 2022-02-06 16:06:17 Procedure Note Provider, Syd Colquitt - 02/07/2022 [facility] [address] [place] [address] Name: FRANSISCA MITCHELL Exam Date: 02/06/2022 : 1970 Age 51 Gender: M Physician: Ophelia Riley Facility: [facility] Facility HSV: Outpatient Exam: MRA BRAIN [...] Thank you for referring FRANSISCA MITCHELL to [facility]. Legally authenticated by JASPER Sotomayor III 2022-02-06 16:06:17 us Ophelia Riley MD IMG MRI PROCEDURES Final Resu lt documented in this encounter Visit Diagnoses Not on filedocumented in this encounter Additional Health Concerns Assessment Noted Time A fall risk assessment has been complete d for the patient 06/10/2021 3:09 PM EST documented as of this encounter Care Teams Supervisor Drapery Hanging Relationship Specialty Start Date End Date Ophelia Riley MD [address] [place] [address] PCP - General Family Medicine 11/24/21 Celia Avery, RN [facility] - 6 [facility] None Registered Nurse Cardiology 10/10/23 documented as of this encounter
--- OUTSIDE RECORDS SUMMARY | 2025-04-01 07:43 | XMS_ITS | Encounter Summary ---
Author Organization [facility] Address [address] [place] [address] Care Team Providers Care Nurses' Association Counselor Name Role Phone Ophelia Riley MD Primary Care Provider Celia Avery RN Unavailable Unavailable Reason for Visit * Reason Comments Med Change Request Encounter Details Date Type Department Care Team (Late st Contact Info) Description 11/28/2022 Refill [facility] [address] [place] [address] Ophelia Riley MD [address] [place] [address] GERD without esophagitis Social History [...] 8:28 AM EDT Unable to reach pt, Unmetrict message sent. * Telephone Encounter - Jeanette Kiran - 11/29/2022 4:54 PM EDT Attempted to call no answer documented in this encounter Plan of Treatment Upcoming Encounters Date Type Department Care Team (Late st Contact Info) Description 04/06/2025 2:30 PM EST Appointment Cardiac Imaging [address] [place] [address] 04/06/2025 4:00 PM EST Office Visit [facility] [place] [address] [place] [address] Janice Benitez MD [address] [place] [address] documented as of this encounter Visit Diagnoses Diagnosis GERD without esophagitis Esophageal reflux documented in this encounter Additional Health Concerns Assessment Noted Time A fall risk assessment has been complete d for the patient 10/20/2022 2:02 PM EDT documented as of this encounter Care Teams Nurses' Association Counselor Relationship Specialty Start Date End Date Ophelia Riley MD [address] [place] [address] PCP - General Family Medicine 11/24/21 Celia Avery RN CH - 6 [facility] None Registered Nurse Cardiology 10/10/23 documented as of this encounter
--- OUTSIDE RECORDS SUMMARY | 2025-04-01 07:43 | XMS_ITS | Encounter Summary ---
Author Organization Healthcare Address [address] [place] [address] Care Team Providers Care Pick Up And Delivery Driver Name Role Phone Ophelia Riley MD Primary Care Provider [phone] Celia Avery RN Unavailable Unavailable Encounter Details Date Type Department Care Team (Latest Contact Info) Description 03/23/2025 Travel Social History Tobacco Use Types Packs/Day [...] were you homeless or living in a [facility] (including now)? No 02/18/2025 [facility] Utilities Answer Date Recorded In the past [...] PM EST Appointment Cardiac Imaging [address] [place] [address] 04/06/2025 4:00 PM EST Office Visit [facility] [place] [facility] [address] [facility] [place] [address] Janice Benitez MD [address] [place] [address] documented as of this encounter Visit Diagnoses [...] documented as of this encounter Care Teams Pick Up And Delivery Driver Relationship Specialty Start Date End Date Ophelia Riley MD [address] [place] [address] PCP - General Family Medicine 11/24/21 Celia Avery RN [facility] - 6 [facility] None Registered Nurse Cardiology 10/10/23 documented as of this encounter
--- OUTSIDE RECORDS SUMMARY | 2025-04-01 07:43 | XMS_ITS | Encounter Summary ---
Author Organization [facility] Address [address] [place] [address] Care Team Providers Care Director Of Primary Name Role Phone Ophelia Riley MD Primary Care Provider [phone] Celia Avery RN Unavailable Unavailable Reason for Visit * Reason Comments Med Refill Encounter Details Date Type Department Care Team (Late st Contact Info) Description 02/15/2025 Refill [facility] [address] [place] [address] Ophelia Riley MD [address] [place] [address] Seasonal allergic rhinitis, unspecified trigger Social History Tobacco Use Types Packs/Day Years [...] any time in the past 12 m [facility], were you homeless or living in a [place] facility (including now)? No 02/18/2025 [facility] Utilities Answer Date Recorded In [...] encounter Miscellaneous Notes * Telephone Encounter - Manuel Arauz, PharmD - 02/17/2025 9:46 AM EDT 1 medication(s) has been denied per protocol due to: Refill requested too soon 90 days sent 01/13 documented in this encounter Plan of Treatment Upcoming Encounters Date Type Department Care Team (Late st Contact Info) Description 04/06/2025 2:30 PM EST Appointment Cardiac Imaging [address] [place] [address] 04/06/2025 4:00 PM EST Office Visit [facility] [place] [facility] [address] [place] [address] Janice Benitez MD [address] [place] [address] documented as of this encounter Visit Diagnoses Diagnosis Seasonal allergic rhinitis, unspecified trigger documented in this encounter Additional Health Concerns Assessment Noted Time PHQ-9 Depression Total Score: 0 11/21/19 25 1:58 PM EDT A fall risk assessment has been complete d for the patient 11/20/2024 1:58 PM EDT A Body Mass Index follow-up plan has been documented for the patient 11/20/2024 2:58 PM EDT documented as of this encounter Care Teams Director Of Primary Relationship Specialty Start Date End Date Ophelia Riley MD [address] [place] [address] PCP - General Family Medicine 11/24/21 Celia Avery, RN [facility] - 6 [facility] None Registered Nurse Cardiology 10/10/23 documented as of this encounter
--- OUTSIDE RECORDS SUMMARY | 2025-04-01 07:43 | XMS_ITS | Encounter Summary ---
Author Organization [facility] Address [address] [place] [address] Care Team Providers Care Fast Food Assistant Restaurant Manager Name Role Phone Ophelia Riley MD Primary Care Provider [phone] Celia Avery RN Unavailable Unavailable Reason for Visit * Reason Onset Date Comments Prior-authorization/insurance Verification 02/18 Encounter Details Date Type Department Care Team (Late st Contact Info) Description 02/18/2025 Telephone [facility] [address] [address] Ophelia Riley MD [address] [place] [address] Prior-authorization/ins urance Verification Social History Tobacco Use Types Packs/Day Years [...] were you homeless or living in a group home (including now)? No 02/18/2025 [facility] Utilities Answer Date Recorded In the past [...] EST Appointment Cardiac Imaging [address] [place] [address] 04/06/2025 4:00 PM EST Office Visit [facility] [place] [facility] [address] [place] [address] Janice Benitez MD [address] [place] [address] documented as of this encounter [...] documented as of this encounter Care Teams Fast Food Assistant Restaurant Manager Relationship Specialty Start Date End Date Ophelia Riley MD [address] [place] [address] PCP - General Family Medicine 11/24/21 Celia Avery, RN CH - 6 [facility] None Registered Nurse Cardiology 10/10/23 documented as of this encounter
--- OUTSIDE RECORDS SUMMARY | 2025-04-01 07:43 | XMS_ITS | Encounter Summary ---
Author Organization Healthcare Address [address] [place] [address] Care Team Providers Care Box Blank Machine Feeder Name Role Phone Ophelia Riley MD Primary Care Provider Celia Avery RN Unavailable Unavailable Encounter Details Date Type Department Care Team (Latest Contact Info) Description 02/10/2025 Travel Social History Tobacco Use Types Packs/Day Years Used Date Smoking Tobacco: Never Smokeless Tobacco: Never Alcohol Use Standard Drinks/Week Comments Never 0 (1 standard drink = 0.6 oz pur e alcohol) PHQ-2 Answer Date Recorded Patient Health Questionnaire-2 Score 0 11/20/2024 PHQ-9 Answer Date Recorded Patient Health Questionnaire-9 Score 0 11/20/2024 Humiliation, Afraid, Rape, and Kick questionnair e [...] getting things needed for daily living? No 02/10/2025 Housing Stability Vital Sign Answer Omero e Recorded In the last 12 months, was t here a time when you were not able to pay the mortgage or rent on time? No 02/10/2025 Number of Times Moved in the Last Year Not on fi le 02/10/2025 At any time in the past 12 m [facility], were you homeless or living in a senior care (including now)? No 02/10/2025 [facility] Utilities Answer Date Recorded In the past 12 months has th e electric, gas, oil, or water company threatened to shut off services in your home? No 02/10/2025 PHQ-2A Answer Date Recorded Patient Health Questionnaire-2 [...] PM EST Appointment Cardiac Imaging [address] [place] [address] 04/06/2025 4:00 PM EST Office Visit [facility] [place] [facility] [address] [facility] [place] [address] Janice Benitez MD [address] [place] [address] documented as of this encounter Visit Diagnoses [...] documented as of this encounter Care Teams Box Blank Machine Feeder Relationship Specialty Start Date End Date Ophelia Riley MD [address] [place] [address] PCP - General Family Medicine 11/24/21 Celia Avery RN [facility] - 6 [facility] None Registered Nurse Cardiology 10/10/23 documented as of this encounter
--- OUTSIDE RECORDS SUMMARY | 2025-04-01 07:43 | XMS_ITS | Encounter Summary ---
Author Organization Healthcare Address [address] [place] [address] Care Team Providers Care Supervisor Records Change Name Role Phone Ophelia Riley MD Primary Care Provider [phone] Celia Avery RN Unavailable Unavailable Encounter Details Date Type Department Care Team (Latest Contact Info) Description 02/18/2025 Travel Social History Tobacco Use Types Packs/Day [...] time in the past 12 m [facility], were you homeless or living in a [place] (including now)? No 02/18/2025 [facility] Utilities Answer Date Recorded In the [...] PM EST Appointment Cardiac Imaging [address] [place] [address] 04/06/2025 4:00 PM EST Office Visit [facility] [place] [facility] [address] [facility] [place] [address] Janice Benitez MD [address] [place] [address] documented as of this encounter Visit Diagnoses [...] as of this encounter Care Teams Supervisor Records Change Relationship Specialty Start Date End Date Ophelia Riley MD [address] [place] [address] PCP - General Family Medicine 11/24/21 Celia Avery RN CH - 6 [facility] None Registered Nurse Cardiology 10/10/23 documented as of this encounter
--- OUTSIDE RECORDS SUMMARY | 2025-04-01 07:43 | XMS_ITS | Clinical Summary ---
Author Organization [facility] Address [address] [place] [address] Care Team Providers Care Core Analysis Operator Name Role Phone Ophelia Riley MD Primary Care Provider [phone] Celia Avery RN Unavailable Unavailable Allergies Active Allergy Reactions Criticality Noted Date Comments Sulfamethoxazole-Trimethop rim Other - please document in the comment field Low 02/17/2025 Medications cyclobenzaprine (Flexeril) 10 MG tabletIndications:Ne ck pain, musculoskeletal Take 1 tablet (10 mg) by mouth at night if needed for muscle spasms. 30 tablet 11 4 Active ASPIRIN 81 PO Take 1 tablet by mouth. Active Farxiga 10 MG tabletIndications:Ca rdiomyopathy, unspecified type (CMS/HCC) Take 1 tablet by mouth daily. 90 tablet 3 5 Active lansoprazole (Prevacid) [address] capsuleIndications:G ERD without esophagitis Take 1 capsule by mouth daily before breakfast. Do not crush or chew. 90 capsule 3 5 Active cetirizine (ZyrTEC) 10 MG tabletIndications:Se asonal allergic rhinitis, unspecified trigger Take 1 tablet by mouth daily. 90 tablet 3 5 Active metoprolol succinate XL (Toprol-XL) 25 MG 24 hr tabletIndications:Ca rdiomyopathy, unspecified type (CMS/HCC) Take 1 tablet by mouth daily. 90 tablet 3 5 Active lisinopril 5 MG tabletIndications:Ca rdiomyopathy, unspecified type (CMS/HCC) Take 1 tablet by mouth daily. 90 tablet 3 5 Active atorvastatin (Lipitor) 20 MG tabletIndications:Mi xed hyperlipidemia Take 1 tablet by mouth nightly. 90 tablet 3 5 Active Active Problems Problem Noted Date Diagnosed [...] Encounters Date Type Department Care Team Description 03/30/2025 Travel 03/23/2025 11:25 AM EST - 03/23/2025 11:59 PM [facility] Hospital Encounter Cardiac Imaging [address] [place] [address] ICD (implantable cardioverter-defibrill ator) in place Discharge Disposition: Home or Self Care 03/23/2025 Travel 02/23/2025 8:30 AM EDT Clinical Support [facility] [address] [place] [address] Cardiomyopathy, unspecified type (CMS/HCC); Routine general medical examination at a health care facility; GERD without esophagitis; Mixed hyperlipidemia 02/23/2025 8:00 AM EDT Clinical Support [facility] [address] [place] [address] Encounter for immunization (Primary Dx) 02/23/2025 Results Follow-Up [facility] [address] [place] [address] Ophelia Riley MD 02/23/2025 Travel 02/18/2025 Travel 02/18/2025 Telephone [facility] [address] [place] [address] Ophelia Riley MD Prior-authorization/in surance Verification 02/17/2025 2:40 PM EDT Office Visit [facility] [address] [facility] [place] [address] Ophelia Riley MD Routine general medical examination at a health care facility (Primary Dx); Mixed hyperlipidemia; Seasonal allergic rhinitis, unspecified trigger; Need for pneumococcal 20-valent conjugate vaccination; Cardiomyopathy, unspecified type (CMS/HCC); Cardiac left ventricular ejection fraction 30-35 percent; 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; GERD without esophagitis 02/17/2025 Travel 02/15/2025 Refill [facility] [address] [place] [address] Ophelia Riley MD Seasonal allergic rhinitis, unspecified trigger 02/10/2025 Travel 01/13/2025 Refill [facility] [address] [place] [address] Ophelia Riley MD Seasonal allergic rhinitis, unspecified trigger from Last 3 Months Immunizations Immunization Administration Dates Next Due Influenza, injectable, quadrivalent, preservativ e free 06/27/2019 [employer] COVID-19 Vaccine (Purple Cap) 12 + 11/30/2020 Pneumococcal 20-shira Conj Vaccine 02/17/2025 Tdap 02/23/2025 Zoster, Recombinant 01/13/2022 Family History Medical History [...] any time in the past 12 m [facility], were you homeless or living in a skilled nursing (including now)? No 02/18/2025 [facility] Utilities Answer Date Recorded In the [...] Pressure 102/68 02/17/2025 2:32 PM EDT Pulse 60 02/23/2025 8:14 AM EDT Temperature 37 C (98.6 F) 02/17/2025 2:32 PM EDT Respiratory Rate 14 02/17/2025 2:32 PM EDT Oxygen Saturation 95% 02/23/2025 8:14 AM EDT Inhaled Oxygen Concentration - - Weight 72.7 kg (160 lb 4.4 oz) 02/17/2025 2:32 P M EDT Height 170.2 cm (5' 7 ) 02/17/2025 2:32 PM EDT Body Mass Index 25.1 02/17/2025 2:32 PM EDT Plan of Treatment Upcoming Encounters Date Type Department Care Team (Late st Contact Info) Description 04/06/2025 2:30 PM EST Appointment Cardiac Imaging [address] [place] [address] 04/06/2025 4:00 PM EST Office Visit [facility] [address] [place] [address] Janice Benitez MD [address] [place] [address] Health Maintenance Due Date Last Done Comments [facility]-HIV Screening 1970 [facility]-Hepatitis C Screening 1970 [facility]-/Child/Adol SDOH Screenings 1970 [facility]-Hepatitis B Vaccines (1 of 3 - 19+ 3-dose series) 1989 CT Colonography 2015 Colonoscopy 2015 FIT 2015 FOBT 2015 Sigmoidoscopy 2015 [facility]-Zoster Vaccines (2 of 2) 03/10/2022 01/13/2022 [id number]-45 Vaccine ( - season) 2024 09/03/2021, 12/21/2020, 11/30/2020 [facility]-Influenza Vaccine (#1) 2024 06/27/2019 [facility]- SDOH Screenings 08/11/2025 [facility]-Adult SDOH Screenings 08/11/2025 02/10/2025 [facility]-Depression Screening 02/17/2026 02/17/2025, 01/29 FIT-DNA 02/27/2027 02/28/2024 [facility]-Colorectal Cancer Screening 02/27/2027 [facility]-DTaP,Tdap,and Td Vaccines (2 - Td or Tdap) 02/23/2035 02/23/2025 [facility]-Pneumococcal Vaccine: 50+ Years Completed 02/17/2025 [facility]-Obesity Intervention Completed 025, 02/23/2025, 02/17/2025, Additional history exists HPV Vaccines Aged Out [...] this topic Medical Devices Implanted Type Area Food Service Driver Device Identifier Shelf Expiration Date Model / Serial / Lot Lead Sprint Quattro Secure S Tachy 62 - [id number] Implanted:Qty: 1 on 06/24/2024 by Janice Benitez MD at [facility] [employer]-[id number] 02/25/2026 [id number] / [id number] / [id number] Lead 5076 Lead Bi Lesley 52 - [id number] Implanted:Qty: 1 on 06/24/2024 by Janice Benitez MD at [facility] [employer]-[id number] 04/21/2026 [id number] / [id number] / [id number] Lead Attain Stability [id number] - [id number] Implanted:Qty: 1 on 06/24/2024 by Janice Benitez MD at [facility] [employer]-[id number] 05/06/2026 [id number] / [id number] / [id number] Procedures Procedure Name Priority Date/Time Associated Diagnosis Comments CARDIAC DEVICE CHECK - REMOTE - ICD Routine 03/23/2025 1:16 PM EST ICD (implantable cardioverter-defibr illator) in place CBC W/O DIFFERENTIAL Routine 02/23/2025 8:02 AM [...] (CMS/HCC) Routine general medical examination at a [facility] care facility LIPID PROFILE, PLASMA Routine 02/23/2025 [...] medical examination at a health care facility LAB COLOGUARD COLON CANCER SCREEN Routine 02/28/2024 [...] events since last clinic/remote report evaluation. Neva Siu SWITCHMAN CV IMPLANTABLE CARDIAC DEV ICE PROCEDURES Final Result * (ABNORMAL) CBC W/O Differential (02/23/2025 8:02 AM EDT) [facility] WBC Count 7.07 3.70 - 10.30 10*3/uL LAB HEMATOLOGY METHOD 02/23/2025 2:00 PM EDT [facility] RBC Count 4.64 4.60 - 6.10 10*6/uL LAB HEMATOLOGY METHOD 02/23/2025 2:00 PM EDT [facility] HGB 15.1 13.7 - 17.5 g/dL LAB HEMATOLOGY METHOD 02/23/2025 2:00 PM EDT [facility] HCT 45.0 40.0 - 51.0 % LAB HEMATOLOGY METHOD 02/23/2025 2:00 PM EDT [facility] Platelet Count 267 155 - 369 10*3/uL LAB HEMATOLOGY METHOD 02/23/2025 2:00 PM EDT [facility] MCV 97 79 - 98 fL LAB HEMATOLOGY METHOD 02/23/2025 2:00 PM EDT [facility] MCH 32.5(H) 26.0 - 32.0 pg LAB HEMATOLOGY METHOD 02/23/2025 2:00 PM EDT [facility] MCHC 33.6 30.7 - 35.5 g/dL LAB HEMATOLOGY METHOD 02/23/2025 2:00 PM EDT [facility] RDW 12.6 11.5 - 14.5 % LAB HEMATOLOGY METHOD 02/23/2025 2:00 PM EDT [facility] MPV 9.9 8.8 - 12.5 fL LAB HEMATOLOGY METHOD 02/23/2025 2:00 PM EDT [facility] nRBC 0.0 <=0.0 per 100 WBCs LAB HEMATOLOGY METHOD 02/23/2025 2:00 PM EDT [facility] Blood Venous blood specimen / Unknown Venipuncture / Unknown 02/23/2025 8:02 AM EDT 02/23/2025 8:02 AM EDT us Ophelia Riley MD LAB BLOOD ORDERABLES Final Re sult Performing Organization Address [facility] Co de Phone Number [facility] [address] [place] [address] * Thyroid Stimulating Hormone, Plasma (02/23/2025 8:02 AM EDT) Thyroid Stimulating Hormone, Plasma 1.14 0.40 - 4.20 uIU/mL 02/23/2025 2:10 PM EDT [facility] Blood Venous blood specimen / Unknown Venipuncture / Unknown 02/23/2025 8:02 AM EDT 02/23/2025 8:02 AM EDT Ophelia Riley MD LAB BLOOD ORDERABLES Final Re sult Performing Organization Address [facility] Co de Phone Number [facility] [address] [place] [address] * Hemoglobin A1c (02/23/2025 8:02 AM EDT) Hemoglobin A1c 5.4 <5.7 % 02/23/2025 3:25 PM EDT [facility] Blood Venous blood specimen / Unknown Venipuncture / Unknown 02/23/2025 8:02 AM EDT 02/23/2025 8:02 AM EDT Narrative [facility] - 02/23/2025 3:25 PM EDT HA1C Interpretive Data: Diagnosis of Diabetes: Diabetic > or = 6.5% Pre-diabetic 5.7 to 6.4% Non-diabetic < or = 5.6% Glycemic Targets for Type I and Type II Diabetics: Non- Adults <7.0% Adults <6.0% Children and Adolescents <7.5% Source: [place] [employer]. Standards of medical care in diabetes,2017. Diabetes Care.2017:40 (suppl 1):S1-S135. us Ophelia Riley MD LAB BLOOD ORDERABLES Final Re sult [facility] [address] [place] [address] * Vitamin B12, Serum (02/23/2025 8:02 AM EDT) Vitamin B12, Serum 458 210 - 1,033 pg/mL 02/23/2025 2:14 PM EDT [facility] Blood Venous blood specimen / Unknown Venipuncture / Unknown 02/23/2025 8:02 AM EDT 02/23/2025 8:02 AM EDT us Ophelia Riley MD LAB BLOOD ORDERABLES Final Re sult Performing Organization Address [facility]/ZIP Co de Phone Number [facility] [address] [place] [address] * (ABNORMAL) Lipid Profile, Plasma (02/23/2025 8:02 AM EDT) Cholesterol, Plasma 182 <200 mg/dL 02/23/2025 2:10 PM EDT [facility] Comment: Cholesterol Reference Range (age >17 years): Desirable <200 mg/dL Borderline 200 to 239 mg/dL Undesirable >239 mg/dL HDL 40 >=40 mg/dL 02/23/2025 2:10 PM EDT [facility] Comment: HDL Cholesterol Reference Ranges (age >17 years): Female, acceptable > or = 50 mg/dL Male, acceptable > or = 40 mg/dL Triglycerides, Plasma 123 <150 mg/dL 02/23/2025 2:10 PM EDT [facility] Comment: Triglyceride Reference Range (age >17 years): Desirable: <150 mg/dL Borderline high: 150 to 199 mg/dL High: 200 to 499 mg/dL Very high: >499 mg/dL Increased risk of pancreatitis: >1000 mg/dL Cholesterol/HDL Ratio 5 02/23/2025 2:10 PM EDT [facility] LDL, Calculated 120(H) <100 mg/dL 2:10 PM EDT [facility] Comment: LDL Cholesterol Reference Range (age [...] 12 hours? Yes 02/23/2025 2:10 PM EDT [facility] Blood Venous blood specimen / Unknown Venipuncture / Unknown 02/23/2025 8:02 AM EDT 02/23/2025 8:02 AM EDT us Ophelia Riley MD LAB BLOOD ORDERABLES Final Re sult [facility] [address] [place] [address] * Comprehensive Metabolic Panel, Plasma (02/23/2025 8:02 AM EDT) Glucose, Plasma 95 74 - 99 mg/dL 02/23/2025 2:10 PM EDT [facility] BUN, Plasma 10 7 - 21 mg/dL 02/23/2025 2:10 PM EDT [facility] Creatinine, Plasma 0.96 0.70 - 1.20 mg/dL 02/23/2025 2:10 PM EDT [facility] BUN/Creatinine Ratio 10 02/23/2025 2:10 PM EDT [facility] Sodium, Plasma 138 136 - 145 mmol/L 02/23/2025 2:10 PM EDT [facility] Potassium, Plasma 4.0 3.6 - 4.9 mmol/L 02/23/2025 2:10 PM EDT [facility] Chloride, Plasma 103 97 - 107 mmol/L 02/23/2025 2:10 PM EDT [facility] CO2, Plasma 26 22 - 29 mmol/L 02/23/2025 2:10 PM EDT [facility] Anion Gap 9 6 - 16 mmol/L 02/23/2025 2:10 PM EDT [facility] Total Calcium, Plasma 9.4 8.9 - 10.2 mg/dL 02/23/2025 2:10 PM EDT [facility] Total Protein 7.3 6.3 - 7.9 g/dL 02/23/2025 2:10 PM EDT [facility] Albumin, Plasma 4.4 3.5 - 5.2 g/dL 02/23/2025 2:10 PM EDT [facility] AST, Plasma 21 10 - 50 U/L 02/23/2025 2:10 PM EDT [facility] ALT, Plasma 24 10 - 50 U/L 02/23/2025 2:10 PM EDT [facility] Alkaline Phosphatase, Plasma 94 40 - 115 U/L 02/23/2025 2:10 PM EDT [facility] Total Bilirubin, Plasma 0.5 0.2 - 1.1 mg/dL 02/23/2025 2:10 PM EDT [facility] eGFRcr 93.3 mL/min/1.7 3m*2 02/23/2025 2:10 PM EDT [facility] Comment:Reported eGFRcr in m L/min/1.73m2 is based the CKD-EPI 2020 equation that does not use a race coefficient. Blood Venous blood specimen / Unknown Venipuncture / Unknown 02/23/2025 8:02 AM EDT 02/23/2025 8:02 AM EDT us Ophelia Riley MD LAB BLOOD ORDERABLES Final Re sult [facility] [address] [place] [address] * Cologuard?? colon cancer screening (02/28/2024 6:57 PM EDT) Cologuard Negative Negative 03/06/2024 7:03 PM [facility] (CLIA #:[id number]) Comment: NEGATIVE TEST RESULT. A negative Cologuard [...] screened with both Cologuard and colonoscopy. (Kelsea Dawn et al, N Engl J Med 2014;370(14):8469-6871) The normal value (reference range) for this assay is negative. COLOGUARD RE-SCREENING RECOMMENDATION: Periodic colorectal cancer screening is an important part of preventive healthcare for asymptomatic individuals at average risk for colorectal cancer. Following a negative Cologuard result, the [place] Cancer Society and U.S. Multi-Society Task Force screening guidelines recommend a Cologuard re-screening interval of 3 years. References: [place] [employer] Guideline for Colorectal Cancer Screening: https://www.cancer.org/cancer/wszdv-arqhzz-psahbh/zvwjiznif-eadwbvddr-qamxbck/ac s-rec ommendations.html.; Reji HAMILTON, Roberto SAGASTUME, Agueda McmahonK, Colorectal Cancer Screening: Recommendations for Physicians and Patients from the U.S. Multi-Society Task Force on Colorectal Cancer Screening , Am J Gastroenterology 2017; 112:9131-1670. TEST DESCRIPTION: Composite algorithmic analysis of stool [...] screened with both Cologuard and colonoscopy. (Kelsea Dawn et al, N Engl J Med 2014;370(14):4707-5947.) Cologuard may produce a false negative or false positive result (no colorectal cancer or precancerous polyp present at colonoscopy follow up). A negative Cologuard test result does not guarantee the absence of CRC or advanced adenoma (pre-cancer). The current Cologuard screening interval is every 3 years. ([place] Cancer Society and U.S. Multi-Society Task Force). Cologuard performance data in a 10,000 patient pivotal study using colonoscopy as the reference method can be accessed at the following location: www.Trending Taste/results. Additional description of the Cologuard test process, warnings and precautions can be found at www.TotalTakeoutrd.TxVia. Stool specimen (specimen) 02/28/2024 6:57 PM EDT 03/01/2024 7:21 AM EDT Ophelia Riley MD LAB MOLECULAR DIAGNOSTICS ORD ERABLES Final Result [employer] (CLIA #:[id number]) [address] [place] [address], from Last 3 Months or Most Recently Relevant to Health Maintenance Insurance RAHAT Advance Directives * Full Code (Latest Code Status on File) Date Activated Date Inactivated Comments 06/24/2024 2:44 PM 06/24/2024 7:46 PM Question Answer Comments Patient has decision-making capacity? Yes Care Teams Core Analysis Operator Relationship Specialty Start Date End Date Ophelia Riley MD [address] [facility] [place] [phone] PCP - General Family Medicine 11/24/21 Celia Avery, RN [facility] - 6 [facility] None Registered Nurse Cardiology 10/10/23
--- OUTSIDE RECORDS SUMMARY | 2025-04-01 07:43 | XMS_ITS | Encounter Summary ---
Author Organization Healthcare Address [address] [place] [address] Care Team Providers Care Transitional Care Nurse Name Role Phone Ophelia Riley MD Primary Care Provider Celia Avery RN Unavailable Unavailable Encounter Details Date Type Department Care Team (Latest Contact Info) Description 02/17/2025 Travel Social History Tobacco Use Types Packs/Day [...] any time in the past 12 m [facility], were you homeless or living in a care home (including now)? No 02/18/2025 [facility] Utilities Answer Date Recorded In the past [...] as of this encounter Functional Status * Over the [...] Not at all 02/17/2025 2: 34 PM EDAbbie Ko Feeling bad about yourself - or that you are a failure or have let yourself or your family down Not at all 02/17/2025 2:34 PM EDAbbie Ko Trouble concentrating on thi ngs, such as reading the newspaper or watching television Not at all 02/17/2025 2:34 PM EDAbbie Ko Moving or speaking so slowly that other people could have noticed? Or the opposite - being so fidgety or restless that you have been moving around a lot more than usual. Not at all 02/17/2025 2:34 PM EDAbbie Ko Thoughts that you would be b judit off or hurting yourself in some way Not at all 02/17/2025 2:34 PM EDAbbie Ko Patient Health Questionnaire-9 Score 0 01/29 2:34 PM EDAbbie Ko * Calculated C-SSRS Risk Score (Lifetime/Recent) Answer Date of Assessment Author No Risk Indicated 02/17/2025 2:34 PM EDT Rory Guajardo * How difficult have these problems made [...] 6. Suicidal Behavior (Lifetime) No 2:34 PM Abbie Soriano documented as of this encounter Plan of Treatment Upcoming Encounters Date Type Department Care Team (Late st Contact Info) Description 04/06/2025 2:30 PM EST Appointment Cardiac Imaging [address] [place] [phone] 04/06/2025 4:00 PM EST Office Visit [facility] [place] [address] [place] [address] Janice Benitez MD [address] [place] [address] documented as of this encounter [...] documented as of this encounter Care Teams Transitional Care Nurse Relationship Specialty Start Date End Date Ophelia Riley MD [address] [place] [address] PCP - General Family Medicine 11/24/21 Celia Avery RN CH - 6 [facility] None Registered Nurse Cardiology 10/10/23 documented as of this encounter
--- OUTSIDE RECORDS SUMMARY | 2025-04-01 07:43 | XMS_ITS | Encounter Summary ---
Author Organization Healthcare Address [address] [place] [address] Care Team Providers Care Cartridge Belt Puncher Name Role Phone Jorge L Arauz MD Primary Care Provider [phone] Lennox Gloria MD Primary Care Provider Ophelia Riley MD Primary Care Provider [phone] Celia Avery RN Unavailable Unavailable Encounter Details Date Type Department Care Team (Late st Contact Info) Description 06/17/2021 Outside Procedure External Location [address] [place] [phone] Provider, [place] Social History Tobacco Use [...] PM EST Appointment Cardiac Imaging [address] [place] [address] 04/06/2025 4:00 PM EST Office Visit [facility] [place] [address] [place] [address] Janice Benitez MD [address] [place] [address] documented as of this encounter Procedures Procedure Name Priority Date/Time Associated Diagnosis Comments ECHO, ADULT TRANSTHORACIC COMPLETE W/ COLOR AND DOPPLER 06/17/2021 11:34 AM EST documented in this encounter Results * Echo, Adult Transthoracic Complete w/ Color and Doppler (06/17/2021 11:34 AM EST) Anatomical Region Laterality Modality Ultrasound 06/17/2021 11:3 4 AM EST Narrative 06/19/2021 8:17 AM EST [address] [address] Name: FRANSISCA MITCHELL Exam Date: 06/17/2021 : 1970 Age 51 Gender: M Physician: GALLO NIETO Facility: [facility] Facility HSV: Outpatient Exam: ECHO W [...] There is no aortic stenosis. AV peak vwlbjxrc=291wo/sec. There is no aortic regurgitation. Tricuspid valve: [...] Thank you for referring FRANSISCA MITCHELL to Psychiatric. Legally authenticated by LEXA Obrien 2021-06-19 06:38:54 Procedure Note Provider, Generic [place] - 06/19/[address] [address] Name: FRANSISCA MITCHELL Exam Date: 06/17/2021 : 1970 Age 51 Gender: M Physician: GALLO NIETO Facility: [facility] Facility HSV: Outpatient Exam: ECHO W [...] There is no aortic stenosis. AV peak yberoqdi=319qx/sec. There is no aortic regurgitation. Tricuspid valve: [...] Thank you for referring FRANSISCA MITCHELL to Psychiatric. Legally authenticated by LEXA Obrien 2021-06-19 06:38:54 Generic [place] Provider CV ECHO PROCEDURES F inal Result documented in this encounter Visit Diagnoses Not on filedocumented in this encounter Additional Health Concerns Assessment Noted Time A fall risk assessment has been complete d for the patient 06/10/2021 3:09 PM EST documented as of this encounter Care Teams Cartridge Belt Puncher Relationship Specialty Start Date End Date Jorge L Arauz MD [address] [place] [phone] PCP - General 09/10/20 10/16/21 [place] [address] [place] [phone] PCP - General Family Medicine 10/17/21 11/23/21 Ophelia Riley MD [address] [place] [phone] PCP - General Family Medicine 11/24/21 Celia Avery, RN CH - 6 [facility] None Registered Nurse Cardiology 10/10/23 documented as of this encounter
--- OUTSIDE RECORDS SUMMARY | 2025-04-01 07:43 | XMS_ITS | Encounter Summary ---
Author Organization Healthcare Address [address] [place] [address] Care Team Providers Care Overhead Worker Name Role Phone Ophelia Riley MD Primary Care Provider [phone] Celia Avery RN Unavailable Unavailable Encounter Details Date Type Department Care Team (Late st Contact Info) Description 09/07/2023 Outside Procedure External Location [address] [place] [address] Gallo Nieto MD [address] [place] [address] Social History Tobacco Use Types [...] PM EST Appointment Cardiac Imaging [address] [place] [address] 04/06/2025 4:00 PM EST Office Visit [facility] Vasyl [address] [facility] [place] [address] Janice Benitez MD [address] [place] [address] documented as of this encounter Procedures Procedure Name Priority Date/Time Associated Diagnosis Comments ECHO, ADULT TRANSTHORACIC COMPLETE W/ COLOR AND DOPPLER 09/07/2023 3:59 PM EDT documented in this encounter Results * Echo, Adult Transthoracic Complete w/ Color and Doppler (09/07/2023 3:59 PM EDT) Anatomical Region Laterality Modality Ultrasound 09/07/2023 3:59 PM EDT Narrative 09/13/2023 11:55 AM EDT [address] [address] Name: FRANSISCA GIBBS Exam Date: 09/07/2023 : 1970 Age 53 years Gender: M Physician: GALLO NIETO Facility: [facility] Facility HSV: Outpatient Exam: ECHO W [...] is with a valve area of 3.05 pattern hanger (Peak grad=7mmH g, Mean grad=3mmHg, LVOT serafin=1.90cm, LVOT TVI=23.0cm, Ao TVI=21.4cm). The dimensionless index is 1.07. AV peak qvcwwoqb=611te/sec. Tricuspid valve: The tricuspid valve is normal. [...] 09/13/2023 Thank you for referring PAULAFRANSISCA to [facility]. Legally authenticated by LEXA Obrien 2023-09-13 11:44:18 Procedure Note Provider, Syd Edmond - 09/13/[address] [address] Name: FRANSISCA GIBBS Exam Date: 09/07/2023 : 1970 Age 53 years Gender: M Physician: GALLO NIETO Facility: [facility] Facility HSV: Outpatient Exam: ECHO W [...] is with a valve area of 3.05 pattern hanger (Peak grad=7mmH g, Mean grad=3mmHg, LVOT serafin=1.90cm, LVOT TVI=23.0cm, Ao TVI=21.4cm). The dimensionless index is 1.07. AV peak engyodpq=204xh/sec. Tricuspid valve: The tricuspid valve is normal. [...] Thank you for referring FRANSISCA GIBBS to [facility]. Legally authenticated by LEXA Obrien 2023-09-13 11:44:18 Gallo Nieto MD CV ECHO PROCEDURES Final Resu lt documented in this encounter Visit Diagnoses Not on filedocumented in this encounter Additional Health Concerns Assessment Noted Time A fall risk assessment has been complete d for the patient 10/20/2022 2:02 PM EDT documented as of this encounter Care Teams Overhead Worker Relationship Specialty Start Date End Date Ophelia Riley MD [address] [place] [id number] PCP - General Family Medicine 11/24/21 Celia Avery, RN [facility] None Registered Nurse Cardiology 10/10/23 documented as of this encounter
--- NOTE | 2025-04-01 08:00 | CA_ITS ---
APPROVED REPORT EXAM: Limited 2D Echocardiogram Reference Services Head: Merline Jones, RCS, RVS Ht: 5 ft 7 in Wt: 162lbs BSA: 1.85 BP: 128/77 mmHg Indications: HFrEF, CAD, Pacemaker 2D Dimensions IVSd 0.90 cm LVEF (Visual) 48.20 % PWd 0.94 cm LVEF (Hodge's) 42.90 % LVDd 4.13 cm LV Volume 83.40 mL LVDs 3.14 cm LV Volume Index 45.037536 mL/m2 M: 34 - 74 Left Atrium 2.76 cm EF AP4 40.10 % EF AP2 47.4 % EF BP 42.9 % GL Strain -16.4 % M-Mode Dimensions RVDd 2.00 cm (0.9-2.6) LVDd 4.13 cm (3.5-5.7) Ao Diam 3.30 cm (2.0-3.7) LVDs 3.44 cm (3.5-5.7) IVSd 0.98 cm (0.6-1.1) PWd 0.94 cm (0.6-1.1) EF (Teich) 41.90% EPSs 0.57 cm FS 21.60% EDV (Teich) 84.00 mL ESV (Teich) 48.80 mL Conclusion This is a limited TTE to evaluate for LV systolic function. Limited windows open. The left ventricle is normal in size. There is increased LV wall thickness. The septum is asynchronous. There is mild global hypokinesis present. LVEF is 45%. Compared to prior study from 12/30/2024, the LV systolic function is unchanged. Electronically signed by : Roshni Barraza MD 04/02/2025 13:08:13
== END 2025-04-01 23:59 | disposition home or self-care (01) ==
PROVIDERS: Visit Provider Physician Assistant
DX: I50.20 Unspecified systolic (congestive) heart failure (principal); I25.10 Atherosclerotic heart disease of native coronary artery without angina pectoris; Z95.0 Presence of cardiac pacemaker; R93.1 Abnormal findings on diagnostic imaging of heart and coronary circulation
CPT/HCPCS: 93308